=== PATIENT | male | born 1950 | race Caucasian/White ===

== ENCOUNTER 2021-07-26 07:18 | Day surgery (SDC) | payer OTHER ==
[~2021-07-26] VITALS: Ht 172.7 cm; Wt 72.6 kg
[~2021-07-26 07:18] MED LIST: ALBU2SYP10 GT; ALBUAER3 IN; ALPR0.254 PO; AML5T PO; AMLO-483 PO; ASPI-231 PO; AZEL0.1S; CHOLTAB14 PO; CYCL5TAB PO; DONE1TAB88 PO; DULO20CA PO; FAMO20TA10 PO; FENO200C PO; FER325T PO; FINA5TAB4 PO; FLUT1SPR5; HYDR-4072 PO; LEV50T PO; LINA145C PO; LOSA25TA38 PO; METF-372 PO; OMEP-263 PO; PREG150C PO; ROSU40TA PO; SILD100T57 PO; TAMS0.4C36 PO; UREA1CRE EX
[2021-07-26] MEDS ORDERED: CIPROFLOXACIN 400MG/200ML 200 ML IV ONE (08:41)
[2021-07-26] MEDS ORDERED: SUCCINYLCHOLINE CHLORIDE 20 MG/ML 10ML VIAL IV ONE (08:50)
[2021-07-26] MEDS ORDERED: ROCURONIUM 10MG/ML 10ML VIAL IV ONE (08:58)
[2021-07-26] MEDS ORDERED: fentaNYL CITRATE 100 MCG/2 ML VL ONE (08:58)
[2021-07-26] MEDS ORDERED: SODIUM CHLORIDE LOCK 10 ML ONE (08:58)
[2021-07-26] MEDS ORDERED: MIDAZOLAM HCL 2MG/2ML 2ml VIAL (1mg/ml) ONE (08:58)
[2021-07-26] MEDS ORDERED: PROPOFOL 10 MG/ML 20 ML IV ONE (08:58)
[2021-07-26] MEDS ORDERED: ONDANSETRON HCL 4 MG/2 ML VIAL ONE (08:58)
[2021-07-26] MEDS ORDERED: HYDROmorphone HCL 2 MG/ML VL IV PRN (09:00)
[2021-07-26] MEDS ORDERED: ACCU-CHEK COMFORT CURVE STRIP VI ONE (09:00)
[2021-07-26] MEDS ORDERED: METOCLOPRAMIDE HCL 5MG/ml INJ 2ml VIAL IV PRN (09:00)
[2021-07-26] MEDS ORDERED: MORPHINE SULFATE 4 MG/ML SYR/VIAL IV PRN (09:00)
[2021-07-26 10:30] VITALS: BP 127/71
== END 2021-07-26 10:45 | disposition home or self-care (01) ==
LOC: SUR 07:18
PROVIDERS: ATTEND Urology
DX: N32.0 Bladder-neck obstruction (principal); N30.80 Other cystitis without hematuria; I12.9 Hypertensive chronic kidney disease with stage 1 through stage 4 chronic kidney disease, or unspecified chronic kidney disease; E11.22 Type 2 diabetes mellitus with diabetic chronic kidney disease; N18.30 Chronic kidney disease, stage 3 unspecified; K21.9 Gastro-esophageal reflux disease without esophagitis; G89.29 Other chronic pain; E03.9 Hypothyroidism, unspecified; F43.10 Post-traumatic stress disorder, unspecified; E66.9 Obesity, unspecified; E11.42 Type 2 diabetes mellitus with diabetic polyneuropathy; J44.9 Chronic obstructive pulmonary disease, unspecified; F41.9 Anxiety disorder, unspecified; F32.9 Major depressive disorder, single episode, unspecified; Z68.31 Body mass index [BMI] 31.0-31.9, adult; Z98.890 Other specified postprocedural states; Z79.899 Other long term (current) drug therapy; Z20.822 Contact with and (suspected) exposure to COVID-19
CPT/HCPCS: 51715; 52640; 82962; 88305; J0330; J0744; J2250; J2405; J2704; J3010; Q4100; U0003

== ENCOUNTER 2024-11-30 06:19 | Inpatient (IN) | payer OTHER ==
[2024-11-30] VITALS (10 sets, daily range): BP systolic 122–138; BP diastolic 50–70; PULSE 83–100; RESP 8–20; TEMP 98–98.4; O2SAT 92–99
[~2024-11-30] VITALS: Ht 172.7 cm; Wt 72.2 kg
[~2024-11-30 06:19] MED LIST changes: -ALBU2SYP10 GT; +ALBU2SYP25 GT; -AMLO-483 PO; +AMLO1TAB21 PO; -ASPI-231 PO; +ASPI1TAB20 PO; +CYCL-837 PO; -CYCL5TAB PO; -FENO200C PO; +FENO200C25 PO; -LEV50T PO; +LEVO-848 PO; +LOSA-533 PO; -LOSA25TA38 PO; -OMEP-263 PO; +OMEP-448 PO; -ROSU40TA PO; +ROSU40TA81 PO; +SILD100T PO; -SILD100T57 PO; -TAMS0.4C36 PO; +TAMS0.4C39 PO
--- NOTE | 2024-11-30 06:33 | ED.PDOC ---
History of Present Illness HPI Comments 74-year-old male brought by paramedics because of shortness a breath. Shortness of breath started this morning. He also states that he has been having body pain. His blood pressure on arrival was 112/75 with a heart rate of 110. His saturation was 75-88% on room air. Placed on oxygen. He does have a history of COPD stents that was deployed in 2009 hypertension diabetes. Denies any other symptoms. Time Seen by MD: 06:28 Primary Care Provider: OK Reviewed Notes: Nurses Notes, Medications, Allergies Allergies: Coded Allergies: Benazepril (Verified Allergy, Severe, SEVERE COUGHING, 08/25/16) Doxycycline (Verified Allergy, Severe, EXCESSIVE COUGH, 08/25/16) [place] (Verified Allergy, Severe, TREMORS, 08/25/16) Quetiapine (Verified Allergy, Severe, AGITATION, 08/25/16) Zolpidem (Verified Allergy, Severe, SLEEP WALKING, 08/25/16) Home Meds Reported Medications Aspirin (Aspir-81) 81 Mg Tab, 81 MG PO, TAB 07/24/21 Albuterol Sulfate (VENTOLIN MDI) 90 Mcg Ih, 90 MCG IN PRN, INH 07/24/21 Albuterol Sulfate (Ventolin) 2 Mg/5 Ml Sr, 2 MG GT, SYP 07/24/21 Azelastine Hcl (Azelastine Hcl) 0.1 % Spr, 0.1 % NA, SPRAY 07/24/21 Fluticasone Propionate (Nasal) (Flonase Allergy Relief) 50 Mcg/Act Spr, 50 MCG NA PRN, SPRAY 07/24/21 Alprazolam (Alprazolam) 0.25 Mg Tab, 0.25 MG PO QHSP PRN for ANXIETY, TAB 07/24/21 Linaclotide Base (LINZESS) 145 Mcg Cap, 145 MCG PO PRN, CAP 07/24/21 Famotidine (PEPCID TABLET) 20 Mg Tb, 20 MG PO QHSP, TAB 07/24/21 Hydrocodone-Acetaminophen (Hydrocodone/Acetaminophen 10-325 mg) 1 Tab Tab, 1 TAB PO [id number], TAB 07/24/21 Urea (Urea 20 Intensive Hydrati) 20 % Cre, 20 % EX, CRE 07/24/21 Ferrous Sulfate (FERROUS SULFATE) 325 Mg Tb, 325 MG PO DAILY, TAB 07/24/21 Tamsulosin Hcl (Tamsulosin Hcl) 0.4 Mg Cap, 0.4 MG PO DAILY, CAP 07/24/21 Omeprazole (Omeprazole Dr) 40 Mg Cap, 40 MG PO BID, CAP 07/24/21 Losartan Potassium (Losartan Potassium) 25 Mg Tab, 25 MG PO DAILY, TAB 07/24/21 Amlodipine Besylate (Amlodipine Besylate) 2.5 Mg Tab, 2.5 MG PO DAILY, TAB 07/24/21 Metformin Hydrochloride (Metformin Hcl) 1,000 Mg Tab, 1000 MG PO BID, TAB 07/24/21 Rosuvastatin Calcium (Crestor) 40 Mg Tab, 40 MG PO DAILY, TAB 07/24/21 Fenofibrate (Fenofibrate Micronized) 200 Mg Cap, 200 MG PO DAILY, CAP 07/24/21 Pregabalin (Lyrica) 150 Mg Cap, 150 MG PO BID, CAP 07/24/21 Duloxetine Hcl (Cymbalta) 20 Mg Cap, 20 MG PO QAM, #3 CAP 07/24/21 Cholecalciferol (D-1000 EXTRA STRENGTH) 1,000 Unit Tab, 1000 UNIT PO, TAB 09/06/18 Sildenafil Citrate (Viagra) 100 Mg Tab, 1 TAB PO DAILYP, #6 TAB 11 Refills 09/06/18 Finasteride (Finasteride) 5 Mg Tab, 1 TAB PO DAILY, #30 TAB 11 Refills 09/06/18 Amlodipine Besylate (NORVASC TABLET) 5 Mg Tb, 1 TAB PO DAILY, #30 TAB 5 Refills 09/06/18 Levothyroxine Sodium (SYNTHROID TABLET) 50 Mcg Tb, 75 MCG PO DAILY 09/06/18 Cyclobenzaprine Hcl (Cyclobenzaprine Hcl) 5 Mg Tab, 2 TAB PO BIDPRN PRN for FOR MUSCLE SPASM, #30 TAB 09/06/18 Donepezil Hydrochloride (DONEPEZIL HCL) 10 Mg Tab, 1 TAB PO DAILY, #90 TAB 1 Refill 09/06/18 Information Source: Patient, Emergency Med Personnel Mode of Arrival: EMS Severity: Moderate Timing: Hours Duration: Since onset Past Medical History PAST MEDICAL HISTORY: Anxiety, COPD, Depression, DM, GERD, HTN Surgical History: PTCA Family History Family History: Unknown Social History Smoker: Non-Smoker Alcohol: Denies ETOH Use Drugs: Denies Drug Use Lives In: Home Constitutional: denies: chills, diaphoresis, fatigue, fever, malaise, sweats, weakness, others EENTM: denies: blurred vision, double vision, ear bleeding, ear discharge, ear drainage, ear pain, ear ringing, eye pain, eye redness, hearing loss, mouth pain, mouth swelling, nasal discharge, nose bleeding, nose congestion, nose pain, photophobia, tearing, throat pain, throat swelling, voice changes, others Respiratory: reports: shortness of breath; denies: cough, hemoptysis, orthopnea, SOB at rest, SOB with excertion, stridor, wheezing, others Cardiovascular: denies: chest pain, dizzy spells, diaphoresis, Dyspnea on exertion, edema, irregular heart beat, left arm pain, lightheadedness, palpitations, PND, syncope, others Gastrointestinal: denies: abdomen distended, abdominal pain, blood streaked bowels, constipated, diarrhea, dysphagia, difficulty swallowing, hematemesis, melena, nausea, poor appetite, poor fluid intake, rectal bleeding, rectal pain, vomiting, others Genitourinary: denies: burning, dysuria, flank pain, frequency, hematuria, incontinence, penile discharge, penile sore, pain, testicle pain, testicle swelling, urgency, others Neurological: denies: dizziness, fainting, headache, left sided numbness, left sided weakness, numbness, paresthesia, pre-existing deficit, right sided numb ness, right sided weakness, seizure, speech problems, tingling, tremors, weakness, others Musculoskeletal: denies: back pain, gout, joint pain, joint swelling, muscle pain, muscle stiffness, neck pain, others Integumetry: denies: bruises, change in color, change in hair/nails, dryness, laceration, lesions, lumps, rash, wounds, others Allergic/Immunocompromised: denies: Difficulty Healing, Frequent Infections, Hives, Itching, others Hematologic/Lymphatic: denies: anemia, blood clots, easy bleeding, easy bruising, swollen glands, others Endocrine: denies: excessive hunger, excessive sweating, excessive thirst, excessive urination, flushing, intolerance to cold, intolerance to heat, unexplained weight gain, unexplained weight loss, others Psychiatric: denies: anxiety, bipolar disorder, depression, hopeless, panic disorder, schizophrenia, sleepless, suicidal, others Physical Exam General Appearance: Moderate Distress HEENT: Normal ENT Inspection, Pharynx Normal, TMs Normal Neck: Full Range of Motion, Non-Tender, Normal, Normal Inspection Respiratory: Accessory Muscle Use, Respiratory Distress, Other (Coarse breath sounds) Cardiovascular: Tachycardia Breast Exam: Deferred Gastrointestinal: No Organomegaly, Non Tender, No Pulsatile Mass, Normal Bowel Sounds, Soft Genitalia: Deferred Pelvic: Deferred Rectal: Deferred Extremities: No calf tenderness, Normal capillary refill, Normal inspection, Normal range of motion, Non-tender, No pedal edema Musculoskeletal : Apperance: Normal Neurologic: Alert, clinic physician II-XII nml as Tested, No Motor Deficits, Normal Affect, Normal Mood, No Sensory Deficits Cerebellar Function: NOT DONE Reflexes: NOT DONE Skin: Dry, Normal Color, Warm Peripheral Pulses: 3+ Radial (R), 3+ Radial (L) Lymphatic: No Adenopathy Was a procedure done? Was a procedure done?: No Differential Dx Considerations may include: COPD Electrolyte imbalance X-Ray, Labs, Meds, VS Patient alert. Complaining of shortness a breath. Using accessory muscles. Blood pressure stable. Answering all questions. He does have risk factors for coronary artery disease. Placed on oxygen. Was given steroid. Was given breathing treatment. Possible pneumonia. COPD exacerbation. Reviewed his previous visit. Explained to the patient. Continue cardiac monitoring. EKG reviewed does not show any acute changes. Time of 1ST Reevaluation: 06:31 Reevaluation 1ST: Unchanged Patient Education/Counseling: Diagnosis, Treatment, Prognosis Family Education/Counseling: No Family Present Departure 1 Departure Time of Disposition: 06:32 Impression: Primary Impression: Acute respiratory failure Qualified Codes: J96.01 - Acute respiratory failure with hypoxia Additional Impression: COPD exacerbation Disposition: ADMITTED INPATIENT Admit to: Med Surg Condition: Guarded Critical Care Note Critical Care Time?: Yes (90 min-critical care time only) Stability Stability form required: No Heart Score Heart Score: Heart Score Response (Comments) Value History Slightly Suspicious 0 EKG Normal 0 Age >65 2 Risk Factors >3 or Hx ASHD 2 Troponin Normal limit 0 Total 4 TATUM KMIBALL MD Nov 30, 2024 06:33
[2024-11-30] MEDS: methylPREDNISolone SOD SUCC 125 MG/2 ML VL IV ONE (07:00)
--- NOTE | 2024-11-30 07:02 | DVH ---
CHEST RADIOGRAPH Indication: sob Technique: Single frontal view of the chest was obtained Comparison: None FINDINGS: Lines and Tubes: None Lungs: Multifocal left lung airspace opacities Pleura: No effusion. No pneumothorax. Cardiomediastinal contours: Unremarkable Bones: No acute osseous abnormality. IMPRESSION: left lung pneumonia
[2024-11-30 07:18] LABS: Chloride 101 mmol/L (98-107); Sodium 139 mmol/L (136-145)
[2024-11-30 07:19] LABS: Anion Gap 13 (5-15); Carbon Dioxide 25 mmol/L (20-31)
[2024-11-30 07:22] LABS: Calcium 10.8 mg/dL (8.7-10.4); Potassium 3.4 mmol/L (3.5-5.1)
[2024-11-30 07:24] LABS: Hematocrit 35.4 % (41.0-53.0); Hemoglobin 11.5 g/dL (13.5-17.5); Mean Corpuscular Hemoglobin 27.6 pg (28.0-32.0); Mean Corpuscular Hgb Conc. 32.5 g/dL (32.0-36.0); Mean Corpuscular Volume 85.1 fL (80.0-100.0); Platelet Count (auto) 313 10^3/uL (140-450); Red Blood Cells 4.16 10^6/uL (4.5-5.90); Red Cell Distribution Width 18.5 % (11.8-14.3); White Blood Cell 19.5 10^3/uL (4.4-10.8)
[2024-11-30 07:24] LABS: BUN/Creatinine Ratio 8.5 (10.0-20.0); Blood Urea Nitrogen 18 mg/dL (9-23)
[2024-11-30] MEDS: IPRATROPIUM BROM 0.5 MG/2.5ML INH SOL NEB ONE (07:27)
[2024-11-30] MEDS: ALBUTEROL SULF 2.5 MG/0.5ML(0.5%) NEB SOLN NEB ONE (07:27)
[2024-11-30 07:29] LABS: Band Neutrophils % (manual) 0; Basophils % (manual) 0 (0.0-2.0); Blast Cells 0; Metamyelocytes % 0; Myelocytes % 0; Promyelocytes % 0; Reactive Lymphocytes 0
[2024-11-30 07:36] LABS: Glucose 265 mg/dL (74-106)
[2024-11-30] MEDS ORDERED: DOCUSATE SOD 100 MG CAP PO PRN (07:45)
[2024-11-30] MEDS ORDERED: ONDANSETRON HCL 4 MG/2 ML VIAL IV PRN (07:45)
[2024-11-30] MEDS ORDERED: DEXTROSE (50%) 50ML SYRG IV PRN (07:45)
[2024-11-30] MEDS: cefTRIAXone 1GM/50ML D5W 50 ML IV SCH (09:00)
[2024-11-30] MEDS: cefTRIAXone 1GM/50ML D5W 50 ML IV ONE (09:00)
[2024-11-30] MEDS: AZITHROMYCIN 500MG/ 250ML 250 ML IV ONE (09:00)
[2024-11-30 09:15] LABS: Eosinophils % (manual) 1 (0-7); Large Platelets FEW; Lymphocytes % (manual) 8 (10.0-50.0); Monocytes % (manual) 5 (0-12); Platelet Estimate Adequa
--- NOTE | 2024-11-30 09:18 | DVHHP2 ---
History of Present Illness Reason for Visit: COPD with acute exacerbation History of Present Illness Patient is a 74-year-old male with multiple past medical history including COPD, DM, hypertension who presented to [facility] ED with complaint of shortness of breaths. Patient reports symptoms progressively get worse with weakness, shortness of breaths when ambulating, on exertion, SOB at rest, hypoxia with O2 saturation in the 70s, getting worse that prompted this visit. Patient was seen evaluated in the ED was placed on oxygen, laboratory data shows WBC 19.5, hemoglobin 11.5, hematocrit 35.4, platelets 313, sodium 139, potassium 3.4, BUN 18, creatinine 2.12, GFR 32 glucose 285, calcium 10.8, troponin 5, blood pressure 113/53, heart rate 100, temperature 98.4 F, O2 saturation 95% on non-rebreather. Chest x-ray revealing left lung pneumonia. Patient was started on IV antibiotic regimen azithromycin, please see medication orders section in the computer. On my assessment, patient denied chest pain, no headache, no dizziness, no diaphoresis, currently on oxygen no diarrhea, no nausea, no vomiting, no fever, no chills. Patient was admitted for evaluation and medical management. Past Medical History Anxiety, COPD, Depression, DM, GERD, HTN, HLD Past Surgical History PTCA Family History Reviewed, noncontributory to the management of this case. Past Social History The patient lives at home, denies smoking, alcohol or illicit drugs abuse. Review of Systems Constitutional: Yes: Weakness; No: Fever, Chills, Sweats, Malaise, Other Eyes: No: Pain, Vision change, Conjunctivae inflammation, Eyelid inflammation, Other, Redness ENT: No: Ear pain, Ear discharge, Nose pain, Nose discharge, Nose congestion, Mouth pain, Mouth swelling, Throat pain, Throat swelling, Other Respiratory: Shortness of breath, SOB with excertion, Other (SOB at rest); No: Cough, Dry, Wheezing, Hemoptysis, Pleuritic Pain, Sputum, Wheezing Cardiovascular: No: Chest Pain, Palpitations, Orthopnea, Paroxysmal Noc. Dyspnea, Edema, Lt Headedness, Other Gastrointestinal: No: Nausea, Vomiting, Abdominal Pain, Diarrhea, Constipation, Melena, Hematochezia, Other Genitourinary: No Dysuria, No Frequency, No Incontinence, No Hematuria, No Retention, No Other Musculoskeletal: No: other, neck pain, shoulder pain, arm pain, back pain, hand pain, leg pain, foot pain Skin: No: Rash, Lesions, Jaundice, Bruising, Other Neurological: No: Weakness, Numbness, Incoordination, Change in speech, Confusion, Seizures, Other Allergies: Coded Allergies: Benazepril (Verified Allergy, Severe, SEVERE COUGHING, 08/25/16) Doxycycline (Verified Allergy, Severe, EXCESSIVE COUGH, 08/25/16) [place] (Verified Allergy, Severe, TREMORS, 08/25/16) Quetiapine (Verified Allergy, Severe, AGITATION, 08/25/16) Zolpidem (Verified Allergy, Severe, SLEEP WALKING, 08/25/16) Medications Current Medications Medications Dose Ordered Sig/Al Route Start Time Stop Time Status Last Admin Dose Admin Aspirin 81 mg DAILY PO 11/30/24 10:00 Atorvastatin Calcium 20 mg HS PO 11/30/24 22:00 Methylprednisolone Sodium Succinate 40 mg Q8HR IV 11/30/24 14:00 Albuterol 2.5 mg Q4HPRN PRN NEB 11/30/24 07:45 Ipratropium [place] 0.5 mg Q4HPRN PRN NEB 11/30/24 07:45 Ceftriaxone Sodium 50 ml @ 100 mls/hr DAILY@09 IV 11/30/24 09:00 Azithromycin 250 ml @ 125 mls/hr DAILY IV 11/30/24 10:00 Future Hold Alprazolam 0.25 mg Q12HP PRN PO 11/30/24 07:45 Diagnostic Test (Pha) 1 strip ACHS 11/30/24 11:30 Insulin Human Regular HS SC 11/30/24 22:00 Insulin Human Regular AC SC 11/30/24 11:30 Dextrose 50 ml UD PRN IV 11/30/24 07:45 Sodium Chloride 10 ml Q8HR IV 11/30/24 14:00 Acetaminophen/ Hydrocodone Bitart 1 tab Q4HP PRN PO 11/30/24 07:45 Ondansetron HCl 4 mg Q4HP PRN IV 11/30/24 07:45 Hold Docusate Sodium 100 mg BIDPRN PRN PO 11/30/24 07:45 Acetaminophen 650 mg Q6HP PRN PO 11/30/24 07:45 Famotidine 20 mg DAILY IV 11/30/24 10:00 Exam Vital Signs Vital Signs Date Time Temp Pulse Resp B/P (MAP) Pulse Ox O2 Delivery O2 Flow Rate FiO2 11/30/24 08:00 90 11/30/24 07:27 20 Non-Rebreather 15 N/A 11/30/24 07:25 98 11/30/24 06:54 98.4 113/53 (73) 98.4 General Appearance: Alert, Oriented X3, Cooperative, No acute distress HEENT: Atraumatic, PERRLA, EOMI, Mucous membr. moist/pink Respiratory: Normal air movement, Other (Diminished breath sounds) Cardiovascular: Regular rate, Normal S1, Normal S2, No murmurs Abdominal: Normal bowel sounds, Soft, No tenderness, No hepatospenomegaly, No masses Extremities: No clubbing, No cyanosis, No edema, Normal pulses, No tenderness/swelling Skin: No rashes, No breakdown, No significant lesion Neuro: Normal speech, Normal tone, Sensation intact, Cranial nerves 3-12 NL, Reflexes 2+, Other (Generalized weakness) Psych/Mental Status: Mental status NL, Mood NL Labs/Xrays Labs Test 11/30/24 06:46 11/30/24 06:34 Range/Units White Blood Count 19.5 H 4.4-10.8 10^3/uL Red Blood Count 4.16 L 4.5-5.90 10^6/uL Hemoglobin 11.5 L 13.5-17.5 g/dL Hematocrit 35.4 L 41.0-53.0 % Mean Corpuscular Volume 85.1 80.0-100.0 fL Mean Corpuscular Hemoglobin 27.6 L 28.0-32.0 pg Mean Corpuscular Hemoglobin Concent 32.5 32.0-36.0 g/dL Red Cell Distribution Width 18.5 H 11.8-14.3 % Platelet Count 313 140-450 10^3/uL Mean Platelet Volume 8.6 6.9-10.8 fL Neutrophils (%) (Auto) 37.0-80.0 % Lymphocytes (%) (Auto) 10.0-50.0 % Monocytes (%) (Auto) 0.0-12.0 % Basophils (%) (Auto) 0.0-2.0 % Neutrophils # (Auto) 1.6-8.6 10 ^3/uL Lymphocytes # (Auto) 0.4-5.4 10 ^3/uL Monocytes # (Auto) 0-1.3 10 ^3/uL Differential Total Cells Counted 100.0 100 Neutrophils % (Manual) 86 H 37.0-80.0 Band Neutrophils % (Manual) 0 Lymphocytes % (Manual) 8 L 10.0-50.0 Monocytes % (Manual) 5 0-12 Eosinophils % (Manual) 1 0-7 Basophils % (Manual) 0 0.0-2.0 Metamyelocytes % (manual) 0 Myelocytes % (Manual) 0 Promyelocytes % (Manual) 0 Blast Cells % (Manual) 0 Reactive Lymphocytes 0 Platelet Estimate [place] Large Platelets Few Troponin I High Sensitivity 5 </=54 ng/L Sodium Level 139 136-145 mmol/L Potassium Level 3.4 L 3.5-5.1 mmol/L Chloride Level 101 98-107 mmol/L Carbon Dioxide Level 25 20-31 mmol/L Anion Gap 13 5-15 Blood Urea Nitrogen 18 9-23 mg/dL Creatinine 2.12 H 0.700-1.30 mg/dL Glomerular Filtration Rate Calc 32 >90 mL/min BUN/Creatinine Ratio 8.5 L 10.0-20.0 Serum Glucose 265 H 74-106 mg/dL Calcium Level 10.8 H 8.7-10.4 mg/dL PATIENT: OLIVIA REDMOND ACCT: [id number] UNIT: [id number] : 1950 LOC: ER ROOM / BED: / AGE / SEX: 74 / M ADM STATUS: REG ER SERVICE [id number] ORDERING PHYSICIAN: TATUM KIMBALL MD PROCEDURE(s): CXRP - CHEST PORTABLE REASON: sob ORDER NUMBER(s): [id number], ACCESSION NUMBER(s): [id number] CHEST RADIOGRAPH Indication: sob Technique: Single frontal view of the chest was obtained Comparison: None FINDINGS: Lines and Tubes: None Lungs: Multifocal left lung airspace opacities Pleura: No effusion. No pneumothorax. Cardiomediastinal contours: Unremarkable Bones: No acute osseous abnormality. IMPRESSION: left lung pneumonia Assessment/Plan Assessment/Plan Acute respiratory failure Acute respiratory failure with hypoxia Leukocytosis, unspecified Generalized weakness Acute on chronic renal failure COPD with acute exacerbation Pneumonia, unspecified organism Plan 1. Admit to telemetry unit 2. Breathing treatment 3. Pain control management 4. IV antibiotic management 5. Management of fluids and electrolytes 6. Consultation for pulmonology 7. Diagnostic test chest x-ray 8. DVT prophylaxis-on aspirin 9. Repeat labs CBC, CMP in a.m. 10. Home medication reviewed and reconciled 11. Continue with current medical management 12. Treatment plan discussed with patient and RN. Patient verbalized un derstanding. Plan discussed with: Patient, Other (RN) My Orders Orders - MERCEDES MILLER DNP Procedure Category Date Status Time Aspirin Tablet PHA 11/30/24 In Process 10:00 Atorvastatin (Lipitor) PHA 11/30/24 In Process 22:00 Methylprednisolone PHA 11/30/24 In Process Sod Succ (Solu Medrol 14:00 Albuterol Medneb PHA 11/30/24 In Process (Ventolin Medneb) 07:45 Ipratropium Medneb PHA 11/30/24 In Process (Atrovent Medneb) 07:45 *Consult CONS 11/30/24 Transmitted / 07:38 Ceftriaxone 1gm/50ml PHA 11/30/24 In Process D5w (Rocephin) 09:00 Azithromycin 500mg/ PHA 11/30/24 In Process 250ml (Zithromax 50 10:00 Azithromycin 500mg/ PHA 11/30/24 In Process 250ml (Zithromax 50 07:45 Alprazolam Tablet PHA 11/30/24 In Process (Xanax Tablet) 07:45 Consistent DIET 11/30/24 Transmitted Carb(Ccho)Diabetes Breakfast Glucose Blood PHA 11/30/24 In Process (Accu-Chek Comfort 11:30 Insulin R (Human) PHA 11/30/24 In Process (Insulin R) 22:00 Insulin R (Human) PHA 11/30/24 In Process (Insulin R) 11:30 Dextrose 50% Syringe PHA 11/30/24 In Process 07:45 Allergies DENITA 11/30/24 In Process 07:38 Code Status CODE 11/30/24 Transmitted 07:38 Sodium Chloride Lock PHA 11/30/24 In Process (Saline Lock Ns) 14:00 Oxygen Per Hour RT 11/30/24 Transmitted 07:38 Hydrocodone-Acet PHA 11/30/24 In Process 5/325mg Tab ([place] 07:45 Ondansetron Hcl PHA 11/30/24 In Process (Zofran) 07:45 Docusate Sodium PHA 11/30/24 In Process Capsule (Colace 07:45 Complete Blood Count LAB 12/01/24 Verified 04:00 Comprehensive LAB 12/01/24 Verified Metabolic Panel 04:00 Condition: Serious DENITA 11/30/24 In Process 07:38 Acetaminophen Tablet PHA 11/30/24 In Process (Tylenol Tablet) 07:45 Bedrest With Bathroom DENITA 11/30/24 In Process Privileg 07:38 Sequential DENITA 11/30/24 In Process Compression Device Famotidine Injection PHA 11/30/24 In Process (Pepcid Injection) 10:00 Problem List: (1) Acute respiratory failure (2) Acute respiratory failure with hypoxia (3) Leukocytosis, unspecified (4) Pneumonia, unspecified organism (5) Generalized weakness (6) COPD with acute exacerbation (7) Acute on chronic renal failure Date of Service: Nov 30, 2024 Billing Provider: MERCEDES MILLER DNP Common Visit Codes: 12599-KALRIPM INP/OBS CARE (HIGH) MERCEDES MILLER DNP Nov 30, 2024 09:18
[2024-11-30] MEDS ORDERED: NITROGLYCERIN 0.4 MG SL TAB SL PRN (09:30)
[2024-11-30] MEDS ORDERED: MORPHINE SULFATE INJ 2 MG/ml SYRG IV PRN (09:30)
[2024-11-30] MEDS ORDERED: POTASSIUM CHL 20MEQ/100ML 100 ML IV ONE (09:30)
[2024-11-30] MEDS: AZITHROMYCIN 500MG/ 250ML 250 ML IV SCH (10:00)
[2024-11-30] MEDS ORDERED: FAMOTIDINE (10MG/ML) 2ML VL IV SCH (10:00)
[2024-11-30] MEDS: FAMOTIDINE (10MG/ML) 2ML VL IV SCH (11:07)
[2024-11-30] MEDS: ASPirin 81 mg TAB PO SCH (11:08)
[2024-11-30] MEDS: POTASSIUM CHL 20 Meq TABLET PO ONE (11:08)
[2024-11-30] MEDS: InsuLIN REG 1unit/0.01ml Soln (100units/ml) SC SCH ×2 (11:39→23:08)
[2024-11-30] MEDS: ACCU-CHEK COMFORT CURVE STRIP VI SCH (11:41)
--- NOTE | 2024-11-30 12:43 | DVHINCON2 ---
Date of service: Nov 30, 2024 Referring Physician Raad Jamison, nurse practitioner Reason for Consultation Acute kidney injury History of Present Illness Patient is 74-year-old male with past medical history significant for Anxiety, COPD, Depression, DM, Chronic Kidney Disease stage [address] Robertson, GERD, and HTN is admitted for shortness of breath and hypoxemia. On admission patient found to have elevated creatinine nephrology is consulted for acute kidney injury Past Medical History PAST MEDICAL HISTORY: Anxiety, COPD, Depression, DM, GERD, HTN Past Surgical History Surgical History: PTCA Allergies: Coded Allergies: Benazepril (Verified Allergy, Severe, SEVERE COUGHING, 08/25/16) Doxycycline (Verified Allergy, Severe, EXCESSIVE COUGH, 08/25/16) [place] (Verified Allergy, Severe, TREMORS, 08/25/16) Quetiapine (Verified Allergy, Severe, AGITATION, 08/25/16) Zolpidem (Verified Allergy, Severe, SLEEP WALKING, 08/25/16) Home Meds Reported Medications Aspirin (Aspir-81) 81 Mg Tab, 81 MG PO, TAB 07/24/21 Albuterol Sulfate (VENTOLIN MDI) 90 Mcg Ih, 90 MCG IN PRN, INH 07/24/21 Albuterol Sulfate (Ventolin) 2 Mg/5 Ml Sr, 2 MG GT, SYP 07/24/21 Azelastine Hcl (Azelastine Hcl) 0.1 % Spr, 0.1 % NA, SPRAY 07/24/21 Fluticasone Propionate (Nasal) (Flonase Allergy Relief) 50 Mcg/Act Spr, 50 MCG NA PRN, SPRAY 07/24/21 Alprazolam (Alprazolam) 0.25 Mg Tab, 0.25 MG PO QHSP PRN for ANXIETY, TAB 07/24/21 Linaclotide Base (LINZESS) 145 Mcg Cap, 145 MCG PO PRN, CAP 07/24/21 Famotidine (PEPCID TABLET) 20 Mg Tb, 20 MG PO QHSP, TAB 07/24/21 Hydrocodone-Acetaminophen (Hydrocodone/Acetaminophen 10-325 mg) 1 Tab Tab, 1 TAB PO [id number], TAB 07/24/21 Urea (Urea 20 Intensive Hydrati) 20 % Cre, 20 % EX, CRE 07/24/21 Ferrous Sulfate (FERROUS SULFATE) 325 Mg Tb, 325 MG PO DAILY, TAB 07/24/21 Tamsulosin Hcl (Tamsulosin Hcl) 0.4 Mg Cap, 0.4 MG PO DAILY, CAP 07/24/21 Omeprazole (Omeprazole Dr) 40 Mg Cap, 40 MG PO BID, CAP 07/24/21 Losartan Potassium (Losartan Potassium) 25 Mg Tab, 25 MG PO DAILY, TAB 07/24/21 Amlodipine Besylate (Amlodipine Besylate) 2.5 Mg Tab, 2.5 MG PO DAILY, TAB 07/24/21 Metformin Hydrochloride (Metformin Hcl) 1,000 Mg Tab, 1000 MG PO BID, TAB 07/24/21 Rosuvastatin Calcium (Crestor) 40 Mg Tab, 40 MG PO DAILY, TAB 07/24/21 Fenofibrate (Fenofibrate Micronized) 200 Mg Cap, 200 MG PO DAILY, CAP 07/24/21 Pregabalin (Lyrica) 150 Mg Cap, 150 MG PO BID, CAP 07/24/21 Duloxetine Hcl (Cymbalta) 20 Mg Cap, 20 MG PO QAM, #3 CAP 07/24/21 Cholecalciferol (D-1000 EXTRA STRENGTH) 1,000 Unit Tab, 1000 UNIT PO, TAB 09/06/18 Sildenafil Citrate (Viagra) 100 Mg Tab, 1 TAB PO DAILYP, #6 TAB 11 Refills 09/06/18 Finasteride (Finasteride) 5 Mg Tab, 1 TAB PO DAILY, #30 TAB 11 Refills 09/06/18 Amlodipine Besylate (NORVASC TABLET) 5 Mg Tb, 1 TAB PO DAILY, #30 TAB 5 Refills 09/06/18 Levothyroxine Sodium (SYNTHROID TABLET) 50 Mcg Tb, 75 MCG PO DAILY 09/06/18 Cyclobenzaprine Hcl (Cyclobenzaprine Hcl) 5 Mg Tab, 2 TAB PO BIDPRN PRN for FOR MUSCLE SPASM, #30 TAB 09/06/18 Donepezil Hydrochloride (DONEPEZIL HCL) 10 Mg Tab, 1 TAB PO DAILY, #90 TAB 1 Refill 09/06/18 Current Medications Current Medications Medications (Trade) Dose Ordered Sig/Al Route PRN Reason Start Time Stop Time Status Last Admin Aspirin 81 mg DAILY PO 11/30/24 10:00 11/30/24 11:08 Atorvastatin Calcium (Lipitor) 20 mg HS PO 11/30/24 22:00 Methylprednisolone Sodium Succinate (Solu Medrol) 40 mg Q8HR IV 11/30/24 14:00 Famotidine (Pepcid Injection) 20 mg Q12HR IV 11/30/24 10:00 11/30/24 08:11 DC Albuterol (Ventolin Medneb) 2.5 mg Q4HPRN PRN NEB SHORTNESS OF BREATH 11/30/24 07:45 Ipratropium [place] (Atrovent Medneb) 0.5 mg Q4HPRN PRN NEB SHORTNESS OF BREATH 11/30/24 07:45 Ceftriaxone Sodium 50 ml @ 100 mls/hr DAILY@09 IV 11/30/24 09:00 11/30/24 09:00 Azithromycin 250 ml @ 125 mls/hr DAILY IV 11/30/24 10:00 11/30/24 12:20 Alprazolam (Xanax Tablet) 0.25 mg Q12HP PRN PO ANXIETY 11/30/24 07:45 Diagnostic Test (Pha) (Accu-Chek Comfort Curve T) 1 strip ACHS 11/30/24 11:30 11/30/24 11:41 Insulin Human Regular (InsuLIN R) HS SC 11/30/24 22:00 Insulin Human Regular (InsuLIN R) AC SC 11/30/24 11:30 11/30/24 11:39 Dextrose 50 ml UD PRN IV Blood Sugar LESS THAN 60 11/30/24 07:45 Sodium Chloride (Saline Lock Ns) 10 ml Q8HR IV 11/30/24 14:00 Acetaminophen/ Hydrocodone Bitart ([place] 5/325MG Tab) 1 tab Q4HP PRN PO MODERATE PAIN (4-6 PAIN SCALE) 11/30/24 07:45 Ondansetron HCl (Zofran) 4 mg Q4HP PRN IV NAUSEA / VOMITING 11/30/24 07:45 Hold Docusate Sodium (Colace Capsule) 100 mg BIDPRN PRN PO FOR CONSTIPATION 11/30/24 07:45 Acetaminophen (Tylenol Tablet) 650 mg Q6HP PRN PO PAIN SCALE 1-3 OR TEMP>100.4 11/30/24 07:45 Famotidine (Pepcid Injection) 20 mg DAILY IV 11/30/24 10:00 11/30/24 11:07 Nitroglycerin (Ntrostat Sublingual) 0.4 mg Q5MINP PRN SL FOR CHEST PAIN 11/30/24 09:30 Morphine Sulfate 2 mg Q30M PRN IV FOR CHEST PAIN 11/30/24 09:30 Review of Systems Can not be obtained due to critical condition H&P Exam Vital Signs/I&O Vital Sign Date Time Temp Pulse Resp B/P (MAP) Pulse Ox O2 Delivery O2 Flow Rate FiO2 11/30/24 11:03 98.4 90 20 122/50 95 10.0 98.4 11/30/24 07:27 Non-Rebreather N/A Physical Exam Patient is awake alert, at the bedside O2 high flow Lungs bibasilar crackles Cardiac exam tachycardia GI soft nontender was normal Extremity 1+ edema Neuro nonfocal Labs/Diagnostic Data Labs/Diagnostic Data Laboratory Tests Test 11/30/24 11:29 11/30/24 06:46 11/30/24 06:34 Range/Units POC Glucose 338 H 70-106 mg/dl White Blood Count 19.5 H 4.4-10.8 10^3/uL Red Blood Count 4.16 L 4.5-5.90 10^6/uL Hemoglobin 11.5 L 13.5-17.5 g/dL Hematocrit 35.4 L 41.0-53.0 % Mean Corpuscular Volume 85.1 80.0-100.0 fL Mean Corpuscular Hemoglobin 27.6 L 28.0-32.0 pg Mean Corpuscular Hemoglobin Concent 32.5 32.0-36.0 g/dL Red Cell Distribution Width 18.5 H 11.8-14.3 % Platelet Count 313 140-450 10^3/uL Mean Platelet Volume 8.6 6.9-10.8 fL Neutrophils (%) (Auto) 37.0-80.0 % Lymphocytes (%) (Auto) 10.0-50.0 % Monocytes (%) (Auto) 0.0-12.0 % Basophils (%) (Auto) 0.0-2.0 % Neutrophils # (Auto) 1.6-8.6 10 ^3/uL Lymphocytes # (Auto) 0.4-5.4 10 ^3/uL Monocytes # (Auto) 0-1.3 10 ^3/uL Differential Total Cells Counted 100.0 100 Neutrophils % (Manual) 86 H 37.0-80.0 Band Neutrophils % (Manual) 0 Lymphocytes % (Manual) 8 L 10.0-50.0 Monocytes % (Manual) 5 0-12 Eosinophils % (Manual) 1 0-7 Basophils % (Manual) 0 0.0-2.0 Metamyelocytes % (manual) 0 Myelocytes % (Manual) 0 Promyelocytes % (Manual) 0 Blast Cells % (Manual) 0 Reactive Lymphocytes 0 Platelet Estimate [place] Large Platelets Few Troponin I High Sensitivity 5 </=54 ng/L Sodium Level 139 136-145 mmol/L Potassium Level 3.4 L 3.5-5.1 mmol/L Chloride Level 101 98-107 mmol/L Carbon Dioxide Level 25 20-31 mmol/L Anion Gap 13 5-15 Blood Urea Nitrogen 18 9-23 mg/dL Creatinine 2.12 H 0.700-1.30 mg/dL Glomerular Filtration Rate Calc 32 >90 mL/min BUN/Creatinine Ratio 8.5 L 10.0-20.0 Serum Glucose 265 H 74-106 mg/dL Calcium Level 10.8 H 8.7-10.4 mg/dL Assessment Acute kidney injury superimposed Chronic Kidney Disease secondary hemodynamic mediated Chronic kidney disease stage [address] Robertson Acute hypoxic respiratory failure Left lower lobe pneumonia Hyperglycemia Anemia of chronic kidney disease Recommendations Closely monitor fluid and electrolytes Avoid nephrotoxic medications Mabry catheter Strict I&Os Check urine electrolytes Check A1c And urine protein excretion Check kidney ultrasound IV antibiotics Pulmonary consult Insulin sliding scale We will continue to follow Patient seen and examined by myself ER 8. I discussed my plan of care with the patient, his and the primary nurse at the bedside I would like to thank Raad for the consult, will follow up Plan discussed with: Patient, Spouse DOUG WOLFE MD Nov 30, 2024 12:43
--- NOTE | 2024-11-30 13:07 | ECG ---
[facility] Test Date: 2024-11-30 Test Time: 06:26:26 Pat Name: OLIVIA REDMOND Department: ER Room: [address] [place] [address] A Gender: M Vp Cardiovascular Service Line: : 1950 Requested By: TATUM KIMBALL Order Number: [id number] Reading MD: Eric Mccray Measurements Intervals [place] Rate: 106 P: 33 NE: 150 QRS: 60 QRSD: 152 T: 1 QT: 356 QTc: 473 Interpretive Statements Sinus tachycardia Right bundle branch block Abnormal inferior Q waves ST depr, consider ischemia, inferior leads Electronically Signed On 11-30-2024 17:55:56 PST by Eric Mccray Please click the below link to view image of tracing.
--- NOTE | 2024-11-30 13:29 | DVH ---
INDICATION: mckenna TECHNIQUE: Multiple real-time sonographic images of the kidneys and bladder were obtained. COMPARISON: None FINDINGS: RIGHT kidney measures 11.7 cm in length. No hydronephrosis. Nonobstructing right renal stone measures 0.7 cm. LEFT kidney measures 11.6 cm in length. Left upper pole cyst measures 0.8 cm. No hydronephrosis. No large intraluminal masses are seen in the bladder. IMPRESSION: No hydronephrosis. Nonobstructing stone in the right mid kidney measures 0.7 cm.
[2024-11-30] MEDS: methylPREDNISolone SOD SUCC 40 MG/ML VL IV SCH (14:00)
[2024-11-30] MEDS: SODIUM CHLOR 0.9% PF (SALINE LOCK) 10ML VIAL/SYR IV SCH (14:06)
[2024-11-30 14:55] LABS: Urine Bacteria None Seen /hpf (None Seen)
[2024-11-30 15:15] LABS: Protein, Urine 23.8 mg/dL (1-14)
[2024-11-30 15:18] LABS: Creatinine, Urine 151.6 mg/dL (30.0-125.0); Urine Protein/Creatinine Ratio 0.16
[2024-11-30 15:26] LABS: Urine Blood Negative /uL (Negative); Urine Clarity Clear (Clear); Urine Color Yellow (Yellow); Urine Hyaline Cast FEW /lpf (0 - 2); Urine Protein, UAD TRACE (Negative); Urine Specific Gravity 1.021 (1.001-1.035); Urine Squamous Epithelial Cell None Seen /hpf (<5); Urine Urobilinogen Normal (Negative); Urine WBC 2 /hpf (0 - 3)
--- NOTE | 2024-11-30 18:28 | DVHINCON2 ---
Date of service: Nov 30, 2024 Referring Physician Raad Jamison NP Reason for Consultation Acute hypoxic respiratory failure, COPD exacerbation and pneumonia History of Present Illness A 74-year-old man with PMHx of COPD, DM, GERD, hypertension, hyperlipidemia, depression and anxiety who presents to ED today c/o shortness of breath. Of note, patient is known to me from office. He reports symptoms progressively worsened with weakness, SOB with exertion and at rest, hypoxia with O2 saturation in the 70s, which prompted this visit. In the ED pt was placed on supplemental oxygen. Workup noted WBC 19.5, hemoglobin 11.5, hematocrit 35.4, platelets 313, sodium 139, potassium 3.4, BUN 18, creatinine 2.12, GFR 32, glucose 285, calcium 10.8, troponin 5. O2 saturation was 95% on non-rebreather. Chest x-ray revealing left lung pneumonia. Patient was admitted for further care and pulmonary consultation is requested for evaluation and management of acute hypoxic respiratory failure, COPD exacerbation and pneumonia. Review of Systems: 14-point review of systems negative unless otherwise noted above. Past Medical History: COPD, DM, GERD, hypertension, hyperlipidemia, depression and anxiety Past Surgical History: PTCA Medications: Reviewed. Allergies: Benazepril Doxycycline [place] Quetiapine Zolpidem Family History: No family history of premature CAD. No family history of lung disorders. Social History: Nonsmoker. No alcohol or illicit drug use. Allergies: Coded Allergies: Benazepril (Verified Allergy, Severe, SEVERE COUGHING, 08/25/16) Doxycycline (Verified Allergy, Severe, EXCESSIVE COUGH, 08/25/16) [place] (Verified Allergy, Severe, TREMORS, 08/25/16) Quetiapine (Verified Allergy, Severe, AGITATION, 08/25/16) Zolpidem (Verified Allergy, Severe, SLEEP WALKING, 08/25/16) Home Meds Reported Medications Aspirin (Aspir-81) 81 Mg Tab, 81 MG PO, TAB 07/24/21 Albuterol Sulfate (VENTOLIN MDI) 90 Mcg Ih, 90 MCG IN PRN, INH 07/24/21 Albuterol Sulfate (Ventolin) 2 Mg/5 Ml Sr, 2 MG GT, SYP 07/24/21 Azelastine Hcl (Azelastine Hcl) 0.1 % Spr, 0.1 % NA, SPRAY 07/24/21 Fluticasone Propionate (Nasal) (Flonase Allergy Relief) 50 Mcg/Act Spr, 50 MCG NA PRN, SPRAY 07/24/21 Alprazolam (Alprazolam) 0.25 Mg Tab, 0.25 MG PO QHSP PRN for ANXIETY, TAB 07/24/21 Linaclotide Base (LINZESS) 145 Mcg Cap, 145 MCG PO PRN, CAP 07/24/21 Famotidine (PEPCID TABLET) 20 Mg Tb, 20 MG PO QHSP, TAB 07/24/21 Hydrocodone-Acetaminophen (Hydrocodone/Acetaminophen 10-325 mg) 1 Tab Tab, 1 TAB PO [id number], TAB 07/24/21 Urea (Urea 20 Intensive Hydrati) 20 % Cre, 20 % EX, CRE 07/24/21 Ferrous Sulfate (FERROUS SULFATE) 325 Mg Tb, 325 MG PO DAILY, TAB 07/24/21 Tamsulosin Hcl (Tamsulosin Hcl) 0.4 Mg Cap, 0.4 MG PO DAILY, CAP 07/24/21 Omeprazole (Omeprazole Dr) 40 Mg Cap, 40 MG PO BID, CAP 07/24/21 Losartan Potassium (Losartan Potassium) 25 Mg Tab, 25 MG PO DAILY, TAB 07/24/21 Amlodipine Besylate (Amlodipine Besylate) 2.5 Mg Tab, 2.5 MG PO DAILY, TAB 07/24/21 Metformin Hydrochloride (Metformin Hcl) 1,000 Mg Tab, 1000 MG PO BID, TAB 07/24/21 Rosuvastatin Calcium (Crestor) 40 Mg Tab, 40 MG PO DAILY, TAB 07/24/21 Fenofibrate (Fenofibrate Micronized) 200 Mg Cap, 200 MG PO DAILY, CAP 07/24/21 Pregabalin (Lyrica) 150 Mg Cap, 150 MG PO BID, CAP 07/24/21 Duloxetine Hcl (Cymbalta) 20 Mg Cap, 20 MG PO QAM, #3 CAP 07/24/21 Cholecalciferol (D-1000 EXTRA STRENGTH) 1,000 Unit Tab, 1000 UNIT PO, TAB 09/06/18 Sildenafil Citrate (Viagra) 100 Mg Tab, 1 TAB PO DAILYP, #6 TAB 11 Refills 09/06/18 Finasteride (Finasteride) 5 Mg Tab, 1 TAB PO DAILY, #30 TAB 11 Refills 09/06/18 Amlodipine Besylate (NORVASC TABLET) 5 Mg Tb, 1 TAB PO DAILY, #30 TAB 5 Refills 09/06/18 Levothyroxine Sodium (SYNTHROID TABLET) 50 Mcg Tb, 75 MCG PO DAILY 09/06/18 Cyclobenzaprine Hcl (Cyclobenzaprine Hcl) 5 Mg Tab, 2 TAB PO BIDPRN PRN for FOR MUSCLE SPASM, #30 TAB 09/06/18 Donepezil Hydrochloride (DONEPEZIL HCL) 10 Mg Tab, 1 TAB PO DAILY, #90 TAB 1 Refill 09/06/18 Current Medications Current Medications Medications (Trade) Dose Ordered Sig/Al Route PRN Reason Start Time Stop Time Status Last Admin Aspirin 81 mg DAILY PO 11/30/24 10:00 11/30/24 11:08 Atorvastatin Calcium (Lipitor) 20 mg HS PO 11/30/24 22:00 Methylprednisolone Sodium Succinate (Solu Medrol) 40 mg Q8HR IV 11/30/24 14:00 11/30/24 14:00 Famotidine (Pepcid Injection) 20 mg Q12HR IV 11/30/24 10:00 11/30/24 08:11 DC Albuterol (Ventolin Medneb) 2.5 mg Q4HPRN PRN NEB SHORTNESS OF BREATH 11/30/24 07:45 Ipratropium [place] (Atrovent Medneb) 0.5 mg Q4HPRN PRN NEB SHORTNESS OF BREATH 11/30/24 07:45 Ceftriaxone Sodium 50 ml @ 100 mls/hr DAILY@09 IV 11/30/24 09:00 11/30/24 09:00 Azithromycin 250 ml @ 125 mls/hr DAILY IV 11/30/24 10:00 11/30/24 12:20 Alprazolam (Xanax Tablet) 0.25 mg Q12HP PRN PO ANXIETY 11/30/24 07:45 Diagnostic Test (Pha) (Accu-Chek Comfort Curve T) 1 strip ACHS 11/30/24 11:30 11/30/24 17:00 Insulin Human Regular (InsuLIN R) HS SC 11/30/24 22:00 Insulin Human Regular (InsuLIN R) AC SC 11/30/24 11:30 11/30/24 17:00 Dextrose 50 ml UD PRN IV Blood Sugar LESS THAN 60 11/30/24 07:45 Sodium Chloride (Saline Lock Ns) 10 ml Q8HR IV 11/30/24 14:00 11/30/24 14:06 Acetaminophen/ Hydrocodone Bitart ([place] 5/325MG Tab) 1 tab Q4HP PRN PO MODERATE PAIN (4-6 PAIN SCALE) 11/30/24 07:45 Ondansetron HCl (Zofran) 4 mg Q4HP PRN IV NAUSEA / VOMITING 11/30/24 07:45 Hold Docusate Sodium (Colace Capsule) 100 mg BIDPRN PRN PO FOR CONSTIPATION 11/30/24 07:45 Acetaminophen (Tylenol Tablet) 650 mg Q6HP PRN PO PAIN SCALE 1-3 OR TEMP>100.4 11/30/24 07:45 Famotidine (Pepcid Injection) 20 mg DAILY IV 11/30/24 10:00 11/30/24 11:07 Nitroglycerin (Ntrostat Sublingual) 0.4 mg Q5MINP PRN SL FOR CHEST PAIN 11/30/24 09:30 Morphine Sulfate 2 mg Q30M PRN IV FOR CHEST PAIN 11/30/24 09:30 Vital Signs Vital Signs Date Time Temp Pulse Resp B/P (MAP) Pulse Ox O2 Delivery O2 Flow Rate FiO2 11/30/24 18:00 91 17 136/65 (88) 99 11/30/24 14:00 98.2 98.2 11/30/24 11:03 10.0 11/30/24 07:27 Non-Rebreather N/A Physical Exam Gen.: Patient lying in bed in no apparent distress. On supplemental oxygen. Head: Normocephalic, atraumatic. Eyes: EOMI/PERRLA. Ears: Normal hearing. Normal anatomy. Neck/trachea: Trachea midline, supple. Nose: Normal external anatomy. Mouth: Moist mucous membranes. Chest: Decreased air entry bilaterally. No wheezing or rhonchi. Cardiovascular: Positive S1, positive S2. Regular rate and rhythm. Abdomen: Positive bowel sounds in all 4 quadrants. Soft, non-tender, non- distended. : Deferred. Rectal: Deferred. Skin: Warm, dry. Intact. Extremities: 2+ radial pulses bilaterally. No lower extremity edema. Neuro: Awake, alert, oriented x3. No gross motor or sensory deficits. Cranial nerves II through XII intact. Gait not assessed. Labs/Diagnostic Data Labs Test 11/30/24 14:46 11/30/24 11:29 11/30/24 06:46 11/30/24 06:34 Range/Units Urine Color Yellow Yellow Urine Clarity Clear Clear Urine pH 5.0 5.0-9.0 Urine Specific [place] 1.021 1.001-1.035 Urine Protein Trace H Negative Urine Ketones Negative Negative Urine Blood Negative Negative /uL Urine Nitrite Negative Negative Urine Bilirubin Negative Negative Urine Urobilinogen Normal Negative mg/dL Urine Leukocyte Esterase Negative Negative /uL Urine RBC 1 0 - 3 /hpf Urine WBC 2 0 - 3 /hpf Urine Squamous Epithelial Cells None seen <5 /hpf Urine Bacteria None seen None Seen /hpf Urine Hyaline Casts Few 0 - 2 /lpf Urine Creatinine 151.60 H 30.0-125.0 mg/dL Urine Protein/Creatinine Ratio 0.16 Urine Sodium 14 L 40-220 mmol/L Urine Glucose 4+ H Normal mg/dL Urine Total Protein 23.8 H 1-14 mg/dL POC Glucose 338 H 70-106 mg/dl White Blood Count 19.5 H 4.4-10.8 10^3/uL Red Blood Count 4.16 L 4.5-5.90 10^6/uL Hemoglobin 11.5 L 13.5-17.5 g/dL Hematocrit 35.4 L 41.0-53.0 % Mean Corpuscular Volume 85.1 80.0-100.0 fL Mean Corpuscular Hemoglobin 27.6 L 28.0-32.0 pg Mean Corpuscular Hemoglobin Concent 32.5 32.0-36.0 g/dL Red Cell Distribution Width 18.5 H 11.8-14.3 % Platelet Count 313 140-450 10^3/uL Mean Platelet Volume 8.6 6.9-10.8 fL Neutrophils (%) (Auto) 37.0-80.0 % Lymphocytes (%) (Auto) 10.0-50.0 % Monocytes (%) (Auto) 0.0-12.0 % Basophils (%) (Auto) 0.0-2.0 % Neutrophils # (Auto) 1.6-8.6 10 ^3/uL Lymphocytes # (Auto) 0.4-5.4 10 ^3/uL Monocytes # (Auto) 0-1.3 10 ^3/uL Differential Total Cells Counted 100.0 100 Neutrophils % (Manual) 86 H 37.0-80.0 Band Neutrophils % (Manual) 0 Lymphocytes % (Manual) 8 L 10.0-50.0 Monocytes % (Manual) 5 0-12 Eosinophils % (Manual) 1 0-7 Basophils % (Manual) 0 0.0-2.0 Metamyelocytes % (manual) 0 Myelocytes % (Manual) 0 Promyelocytes % (Manual) 0 Blast Cells % (Manual) 0 Reactive Lymphocytes 0 Platelet Estimate [place] Large Platelets Few Troponin I High Sensitivity 5 </=54 ng/L Sodium Level 139 136-145 mmol/L Potassium Level 3.4 L 3.5-5.1 mmol/L Chloride Level 101 98-107 mmol/L Carbon Dioxide Level 25 20-31 mmol/L Anion Gap 13 5-15 Blood Urea Nitrogen 18 9-23 mg/dL Creatinine 2.12 H 0.700-1.30 mg/dL Glomerular Filtration Rate Calc 32 >90 mL/min BUN/Creatinine Ratio 8.5 L 10.0-20.0 Serum Glucose 265 H 74-106 mg/dL Calcium Level 10.8 H 8.7-10.4 mg/dL Assessment Impression: Acute hypoxic respiratory failure AE COPD Pneumonia, likely gram negative CAD, s/p stent Plan: Supplemental oxygen, on 8 LPM Oxymizer Titrate to keep O2 sats above 92%. Taper O2 as tolerated. Monitor respiratory status closely d/t increased O2 requirements Continue bronchodilators. Continue antibiotics Steroids Incentive spirometry Monitor renal function. Monitor electrolytes. Supplement as necessary. Monitor ins and outs. DVT prophylaxis. Prognosis: Poor given patient's multiple co-morbidities. Rest of plan per hospitalist and other consultants. Thank you, COLLINS Jamison, for allowing me to participate in this patient's care. Further recommendations will depend on the patient's clinical course. Please do not hesitate to contact me if you have any questions or concerns. This medical document was created using an electronic medical record system with [employer] system. Although these documentations are being carefully reviewed, there may still be some phonetic and typographical changes. The errors are purely typographical, due to imperfection on the software program, and do not reflect any compromise in the patient's medical care. Plan discussed with: Patient, Other (RN/COLLINS Jamison/) MARILIN FOY MD Nov 30, 2024 18:28
[2024-11-30] MEDS: ALBUTEROL SULF 2.5 MG/0.5ML(0.5%) NEB SOLN NEB PRN (19:01)
[2024-11-30] MEDS: IPRATROPIUM BROM 0.5 MG/2.5ML INH SOL NEB PRN (19:02)
[2024-11-30] MEDS: ATORVASTATIN 20 MG TAB PO SCH (23:08)
[2024-12-01] VITALS (13 sets, daily range): BP systolic 124–179; BP diastolic 65–88; PULSE 86–102; RESP 16–20; TEMP 97.7–98.2; O2SAT 92–99
[2024-12-01 05:34] LABS: Alanine Aminotransferase 14 U/L (7-40); Albumin 4.1 g/dL (3.2-4.8); Alkaline Phosphatase 58 U/L (46-116); Anion Gap 8 (5-15); Aspartate Aminotransferase 14 U/L (13-40); BUN/Creatinine Ratio 15.2 (10.0-20.0); Bilirubin, Total 0.3 mg/dL (0.2-1.0); Carbon Dioxide 26 mmol/L (20-31); Chloride 104 mmol/L (98-107); Potassium 4.8 mmol/L (3.5-5.1); Sodium 138 mmol/L (136-145)
[2024-12-01 05:35] LABS: Total Protein 6.1 g/dL (5.7-8.2)
[2024-12-01 05:45] LABS: Hematocrit 29.4 % (41.0-53.0); Hemoglobin 9.7 g/dL (13.5-17.5); Mean Corpuscular Hemoglobin 27.6 pg (28.0-32.0); Mean Corpuscular Hgb Conc. 33.1 g/dL (32.0-36.0); Mean Corpuscular Volume 83.3 fL (80.0-100.0); Platelet Count (auto) 217 10^3/uL (140-450); Red Blood Cells 3.53 10^6/uL (4.5-5.90); Red Cell Distribution Width 18.9 % (11.8-14.3); White Blood Cell 26.7 10^3/uL (4.4-10.8)
[2024-12-01 05:54] LABS: Blood Urea Nitrogen 25 mg/dL (9-23); Calcium 11.5 mg/dL (8.7-10.4); Glucose 230 mg/dL (74-106)
[2024-12-01 05:58] LABS: Basophils % (manual) 0 (0.0-2.0); Blast Cells 0; Eosinophils % (manual) 0 (0-7); Metamyelocytes % 0; Myelocytes % 0; Promyelocytes % 0; Reactive Lymphocytes 0
[2024-12-01 08:10] LABS: Band Neutrophils % (manual) 13; Lymphocytes % (manual) 1 (10.0-50.0); Monocytes % (manual) 3 (0-12); Platelet Estimate Adequate
[2024-12-01] MEDS: HYDROcodone-ACET 5/325MG TAB PO PRN (09:22)
--- NOTE | 2024-12-01 11:10 | DVHPN2 ---
Progress Note Date Seen: Dec 01, 2024 Medical Necessity Reason Pt with a Central, PICC or Fol: No Subjective Patient reports: Feels better Review of Systems: RESPIRATORY:Abnormal Objective vital signs Vital Sign Date Time Temp Pulse Resp B/P (MAP) Pulse Ox O2 Delivery O2 Flow Rate FiO2 12/01/24 09:00 97.7 95 16 143/77 (99) 93 97.7 12/01/24 08:00 Nasal Cannula* 4 36 Total Intake and Output 11/30/24 11/30/24 12/01/24 15:00 23:00 07:00 Intake Total 300 ml 250 ml Balance 300 ml 250 ml medications Current Medications Medications Dose Ordered Sig/Al Route Start Time Stop Time Status Last Admin Dose Admin Aspirin 81 mg DAILY PO 11/30/24 10:00 12/01/24 09:22 81 MG Atorvastatin Calcium 20 mg HS PO 11/30/24 22:00 11/30/24 23:08 20 MG Methylprednisolone Sodium Succinate 40 mg Q8HR IV 11/30/24 14:00 12/01/24 06:18 40 MG Albuterol 2.5 mg Q4HPRN PRN NEB 11/30/24 07:45 12/01/24 07:13 2.5 MG Ipratropium [place] 0.5 mg Q4HPRN PRN NEB 11/30/24 07:45 12/01/24 07:13 0.5 MG Ceftriaxone Sodium 50 ml @ 100 mls/hr DAILY@09 IV 11/30/24 09:00 12/01/24 09:22 100 MLS/HR Azithromycin 250 ml @ 125 mls/hr DAILY IV 11/30/24 10:00 11/30/24 12:20 125 MLS/HR Alprazolam 0.25 mg Q12HP PRN PO 11/30/24 07:45 Diagnostic Test (Pha) 1 strip ACHS 11/30/24 11:30 12/01/24 06:25 1 STRIP Insulin Human Regular HS SC 11/30/24 22:00 11/30/24 23:08 8 UNITS Insulin Human Regular AC SC 11/30/24 11:30 12/01/24 06:23 6 UNITS Dextrose 50 ml UD PRN IV 11/30/24 07:45 Sodium Chloride 10 ml Q8HR IV 11/30/24 14:00 12/01/24 06:18 10 ML Acetaminophen/ Hydrocodone Bitart 1 tab Q4HP PRN PO 11/30/24 07:45 12/01/24 09:22 1 TAB Ondansetron HCl 4 mg Q4HP PRN IV 11/30/24 07:45 Hold Docusate Sodium 100 mg BIDPRN PRN PO 11/30/24 07:45 Acetaminophen 650 mg Q6HP PRN PO 11/30/24 07:45 Famotidine 20 mg DAILY IV 11/30/24 10:00 12/01/24 09:21 20 MG Nitroglycerin 0.4 mg Q5MINP PRN SL 11/30/24 09:30 Morphine Sulfate 2 mg Q30M PRN IV 11/30/24 09:30 Examination: GENERAL:Normal, LUNGS:Abnormal laboratory and microbiology Laboratory Tests 12/01/24 04:25 Test 12/01/24 04:25 Range/Units Serum Glucose 230 H 74-106 mg/dL Microbiology Date/Time Source Procedure Growth Status 11/30/24 20:25 Sputum Gram Stain - Final Resulted 11/30/24 20:25 Sputum Respiratory Culture - Preliminary Resulted Problem List/Assessment/Plan Problem List/Assessment/Plan Acute kidney injury superimposed Chronic Kidney Disease secondary hemodynamic mediated Chronic kidney disease stage [address] Azar Acute hypoxic respiratory failure Left lower lobe pneumonia Hyperglycemia Anemia of chronic kidney disease Right nonobstructing kidney stone slow improvement in renal function Avoid nephrotoxic medications Mabry catheter Strict I&Os IV antibiotics Pulmonary consult Insulin sliding scale Plan discussed with: Patient SHAWANDA AZAR MD Dec 01, 2024 11:10
--- NOTE | 2024-12-01 12:56 | DVHPN2 ---
Progress Note Date Seen: Dec 01, 2024 Medical Necessity Reason Pt with a Central, PICC or Fol: No Subjective Patient reports: No new complaints Review of Systems: HEENT:Normal, CVS:Normal, RESPIRATORY:Normal, GI:Normal, :Normal, MSK:Normal, NEURO:Normal Objective vital signs Vital Sign Date Time Temp Pulse Resp B/P (MAP) Pulse Ox O2 Delivery O2 Flow Rate FiO2 12/01/24 09:00 97.7 95 16 143/77 (99) 93 97.7 12/01/24 08:00 Nasal Cannula* 4 36 Total Intake and Output 11/30/24 11/30/24 12/01/24 15:00 23:00 07:00 Intake Total 300 ml 250 ml Balance 300 ml 250 ml medications Current Medications Medications Dose Ordered Sig/Al Route Start Time Stop Time Status Last Admin Dose Admin Aspirin 81 mg DAILY PO 11/30/24 10:00 12/01/24 09:22 81 MG Atorvastatin Calcium 20 mg HS PO 11/30/24 22:00 11/30/24 23:08 20 MG Methylprednisolone Sodium Succinate 40 mg Q8HR IV 11/30/24 14:00 12/01/24 06:18 40 MG Albuterol 2.5 mg Q4HPRN PRN NEB 11/30/24 07:45 12/01/24 07:13 2.5 MG Ipratropium [place] 0.5 mg Q4HPRN PRN NEB 11/30/24 07:45 12/01/24 07:13 0.5 MG Ceftriaxone Sodium 50 ml @ 100 mls/hr DAILY@09 IV 11/30/24 09:00 12/01/24 09:22 100 MLS/HR Azithromycin 250 ml @ 125 mls/hr DAILY IV 11/30/24 10:00 11/30/24 12:20 125 MLS/HR Alprazolam 0.25 mg Q12HP PRN PO 11/30/24 07:45 Diagnostic Test (Pha) 1 strip ACHS 11/30/24 11:30 12/01/24 06:25 1 STRIP Insulin Human Regular HS SC 11/30/24 22:00 11/30/24 23:08 8 UNITS Insulin Human Regular AC SC 11/30/24 11:30 12/01/24 06:23 6 UNITS Dextrose 50 ml UD PRN IV 11/30/24 07:45 Sodium Chloride 10 ml Q8HR IV 11/30/24 14:00 12/01/24 06:18 10 ML Acetaminophen/ Hydrocodone Bitart 1 tab Q4HP PRN PO 11/30/24 07:45 12/01/24 09:22 1 TAB Ondansetron HCl 4 mg Q4HP PRN IV 11/30/24 07:45 Hold Docusate Sodium 100 mg BIDPRN PRN PO 11/30/24 07:45 Acetaminophen 650 mg Q6HP PRN PO 11/30/24 07:45 Famotidine 20 mg DAILY IV 11/30/24 10:00 12/01/24 09:21 20 MG Nitroglycerin 0.4 mg Q5MINP PRN SL 11/30/24 09:30 Morphine Sulfate 2 mg Q30M PRN IV 11/30/24 09:30 Examination: GENERAL:Normal, HEENT:Normal, NECK:Normal, LUNGS:Normal, LUNGS:Abnormal (on oxygen), CVS:Normal, ABDOMEN:Normal, MSK:Normal, SKIN:Normal, NEURO:Normal, :Normal laboratory and microbiology Laboratory Tests 12/01/24 04:25 Test 12/01/24 04:25 Range/Units Serum Glucose 230 H 74-106 mg/dL Microbiology Date/Time Source Procedure Growth Status 11/30/24 20:25 Sputum Gram Stain - Final Resulted 11/30/24 20:25 Sputum Respiratory Culture - Preliminary Resulted Problem List/Assessment/Plan Problem List/Assessment/Plan #1 acute resp failure: cont oxygen #2 left pneumonia - gram positive/neg with sepsis: iv antibiotics #3 copd with exacerbation :prednisone #4 cad s/p stent #5 dm: ssi, lantus #6 htn #7 hypothyroidism #8 anxiety #9 ckd stage 3b #10 hyperlipidemia #11 bph advance care planning- full code- time spent 19 mins Plan discussed with: Patient, Spouse Dietary Evaluation Review Comments: Follow CCHO-60g diet with Renal specific 60g protein restriction with 2GNa, 3K, low phos diet Expected Outcomes/Goals: controlled DM with less uremic symptoms Date of Service: Dec 01, 2024 Billing Provider: MOHAN GRUBBS MD Common Visit Codes: [id number] INP/OBS CARE(HIGH) Secondary Visit Codes: [id number] CARE PLAN 30 MINUTES MOHAN GRUBBS MD Dec 01, 2024 12:56
[2024-12-01] MEDS: TAMSULOSIN HYDROCHLORIDE 0.4 MG CAP PO SCH (18:22)
[2024-12-01] MEDS: ALPRAZolam 0.25 MG TAB PO PRN (20:13)
[2024-12-01] MEDS: LOSARTAN POTASSIUM 25 MG TAB PO ONE (20:15)
[2024-12-01] MEDS: PREGABALIN CAPSULE 75 MG CAP PO SCH (22:12)
[2024-12-01] MEDS: INSULIN LANTUS (GLARGINE) 1 /0.01ml (100units/ml) SC SCH (22:14)
--- NOTE | 2024-12-01 23:18 | DVHPN2 ---
Progress Note - Dictate Date Seen: Dec 01, 2024 Medical Necessity Reason Pt with a Central, PICC or Fol: No Subjective Patient seen and examined at bedside. Remains on supplemental oxygen Overnight events reviewed. vital signs Vital Sign Date Time Temp Pulse Resp B/P (MAP) Pulse Ox O2 Delivery O2 Flow Rate FiO2 12/01/24 21:00 98.1 102 19 179/88 (118) 92 98.1 12/01/24 19:10 Nasal Cannula* 3 32 Total Intake and Output 11/30/24 11/30/24 12/01/24 15:00 23:00 07:00 Intake Total 300 ml 250 ml Balance 300 ml 250 ml medications Current Medications Medications Dose Ordered Sig/Al Route Start Time Stop Time Status Last Admin Dose Admin Aspirin 81 mg DAILY PO 11/30/24 10:00 12/01/24 09:22 81 MG Atorvastatin Calcium 20 mg HS PO 11/30/24 22:00 12/01/24 22:12 20 MG Albuterol 2.5 mg Q4HPRN PRN NEB 11/30/24 07:45 12/01/24 19:10 2.5 MG Ipratropium [place] 0.5 mg Q4HPRN PRN NEB 11/30/24 07:45 12/01/24 19:10 0.5 MG Ceftriaxone Sodium 50 ml @ 100 mls/hr DAILY@09 IV 11/30/24 09:00 12/01/24 09:22 100 MLS/HR Azithromycin 250 ml @ 125 mls/hr DAILY IV 11/30/24 10:00 12/01/24 13:26 125 MLS/HR Alprazolam 0.25 mg Q12HP PRN PO 11/30/24 07:45 12/01/24 20:13 0.25 MG Diagnostic Test (Pha) 1 strip ACHS 11/30/24 11:30 12/01/24 22:14 1 STRIP Insulin Human Regular HS SC 11/30/24 22:00 12/01/24 22:13 6 UNITS Insulin Human Regular AC SC 11/30/24 11:30 12/01/24 18:42 12 UNITS Dextrose 50 ml UD PRN IV 11/30/24 07:45 Sodium Chloride 10 ml Q8HR IV 11/30/24 14:00 12/01/24 22:03 10 ML Acetaminophen/ Hydrocodone Bitart 1 tab Q4HP PRN PO 11/30/24 07:45 12/01/24 20:13 1 TAB Ondansetron HCl 4 mg Q4HP PRN IV 11/30/24 07:45 Hold Docusate Sodium 100 mg BIDPRN PRN PO 11/30/24 07:45 Acetaminophen 650 mg Q6HP PRN PO 11/30/24 07:45 Nitroglycerin 0.4 mg Q5MINP PRN SL 11/30/24 09:30 Morphine Sulfate 2 mg Q30M PRN IV 11/30/24 09:30 Famotidine 20 mg DAILY PO 12/02/24 10:00 Prednisone 40 mg DAILY PO 12/02/24 10:00 Tamsulosin HCl 0.4 mg QPM PO 12/01/24 18:00 12/01/24 18:22 0.4 MG Finasteride 5 mg DAILY PO 12/02/24 10:00 Levothyroxine Sodium 75 mcg QAM@0600 PO 12/02/24 06:00 Amlodipine Besylate 5 mg DAILY PO 12/02/24 10:00 Pregabalin 150 mg BID PO 12/01/24 22:00 12/01/24 22:12 150 MG Insulin Glargine 15 units HS SC 12/01/24 22:00 12/01/24 22:14 15 UNITS Losartan Potassium 25 mg DAILY PO 12/02/24 10:00 objective Gen.: Patient lying in bed in no apparent distress. On supplemental oxygen. Head: Normocephalic, atraumatic. Eyes: EOMI/PERRLA. Ears: Normal hearing. Normal anatomy. Neck/trachea: Trachea midline, supple. Nose: Normal external anatomy. Mouth: Moist mucous membranes. Chest: Decreased air entry bilaterally. No wheezing or rhonchi. Cardiovascular: Positive S1, positive S2. Regular rate and rhythm. Abdomen: Positive bowel sounds in all 4 quadrants. Soft, non-tender, non- distended. : Deferred. Rectal: Deferred. Skin: Warm, dry. Intact. Extremities: 2+ radial pulses bilaterally. No lower extremity edema. Neuro: Awake, alert, oriented x3. No gross motor or sensory deficits. Cranial nerves II through XII intact. Gait not assessed. laboratory and microbiology Laboratory Tests 12/01/24 04:25 Test 12/01/24 04:25 Range/Units Serum Glucose 230 H 74-106 mg/dL Assessment/Plan Impression: Acute hypoxic respiratory failure AE COPD Pneumonia, likely gram negative CAD, s/p stent Events: Remains on supplemental oxygen, 3 LPM NC Taper O2 as tolerated Improved O2 requirements Continue bronchodilators Continue steroids - taper due to hyperglycemia Continue antibiotics Incentive spirometry Patient is feeling better. Labs and imaging reviewed. Rest of plan as noted below. Plan: Supplemental oxygen Titrate to keep O2 sats above 92%. Continue bronchodilators. Continue antibiotics Steroids Incentive spirometry Monitor renal function. Monitor electrolytes. Supplement as necessary. Monitor ins and outs. DVT prophylaxis. Prognosis: Poor given patient's multiple co-morbidities. Rest of plan per hospitalist and other consultants. Thank you, RETAIL SALES ASSISTANT Shaheen, for allowing me to participate in this patient's care. Further recommendations will depend on the patient's clinical course. Please do not hesitate to contact me if you have any questions or concerns. This medical document was created using an electronic medical record system with [employer] computerized dictation system. Although these documentations are being carefully reviewed, there may still be some phonetic and typographical changes. The errors are purely typographical, due to imperfection on the software program, and do not reflect any compromise in the patient's medical care. Dietary Evaluation Review Comments: Follow CCHO-60g diet with Renal specific 60g protein restriction with 2GNa, 3K, low phos diet Expected Outcomes/Goals: controlled DM with less uremic symptoms Plan discussed with: Patient, Other (KRYSTINA Lara) MARILIN FOY MD Dec 01, 2024 23:18
[2024-12-02] VITALS (10 sets, daily range): BP systolic 141–169; BP diastolic 78–92; PULSE 74–95; RESP 18–20; TEMP 98.1–98.9; O2SAT 89–98
[2024-12-02 05:14] LABS: Basophils # (auto) 0 10 ^3/uL (0-0.2); Eosinophils # (auto) 0 10 ^3/uL (0-0.8); Hematocrit 28.8 % (41.0-53.0); Hemoglobin 9.4 g/dL (13.5-17.5); Lymphocytes # (auto) 0.9 10 ^3/uL (0.4-5.4); Lymphocytes % (auto) 4.1 % (10.0-50.0); Mean Corpuscular Hemoglobin 27.1 pg (28.0-32.0); Mean Corpuscular Hgb Conc. 32.6 g/dL (32.0-36.0); Mean Corpuscular Volume 83.2 fL (80.0-100.0); Monocytes # (auto) 1.2 10 ^3/uL (0-1.3); Monocytes % (auto) 5.6 % (0.0-12.0); Neutrophils # (auto) 19.8 10 ^3/uL (1.6-8.6); Neutrophils % (auto) 90.3 % (37.0-80.0); Platelet Count (auto) 232 10^3/uL (140-450); Red Blood Cells 3.47 10^6/uL (4.5-5.90); Red Cell Distribution Width 19.5 % (11.8-14.3); White Blood Cell 21.9 10^3/uL (4.4-10.8)
[2024-12-02 05:30] LABS: Chloride 107 mmol/L (98-107); Sodium 141 mmol/L (136-145)
[2024-12-02 05:31] LABS: Anion Gap 7 (5-15); Carbon Dioxide 27 mmol/L (20-31)
[2024-12-02 05:36] LABS: BUN/Creatinine Ratio 23.8 (10.0-20.0)
--- NOTE | 2024-12-02 05:54 | DVH ---
CHEST RADIOGRAPH Indication: left pneumonia Technique: Single frontal view of the chest was obtained COMPARISON: XY CHEST PORTABLE on DOS: 11/30/24 FINDINGS: Lines and Tubes: None Lungs: Increased diffuse left lung airspace disease. Pleura: No effusion. No pneumothorax. Cardiomediastinal contours: Unremarkable Bones: Unremarkable IMPRESSION: Increased diffuse left lung airspace disease.
[2024-12-02 06:06] LABS: Blood Urea Nitrogen 24 mg/dL (9-23); Calcium 10.9 mg/dL (8.7-10.4); Glucose 123 mg/dL (74-106)
[2024-12-02] MEDS: LEVOTHYROXINE SODIUM 25 MCG TAB PO SCH (06:23)
--- NOTE | 2024-12-02 09:32 | DVHPN2 ---
Progress Note Date Seen: Dec 02, 2024 Medical Necessity Reason Pt with a Central, PICC or Fol: No Subjective Patient reports: Feels better Review of Systems: RESPIRATORY:Abnormal Objective vital signs Vital Sign Date Time Temp Pulse Resp B/P (MAP) Pulse Ox O2 Delivery O2 Flow Rate FiO2 12/02/24 09:00 98.7 74 20 141/78 (99) 91 98.7 12/01/24 20:00 Nasal Cannula* 4 36 Total Intake and Output 12/01/24 12/01/24 12/02/24 15:00 23:00 07:00 Intake Total 490 ml 750 ml 700 ml Output Total 900 ml Balance 490 ml 750 ml -200 ml medications Current Medications Medications Dose Ordered Sig/Al Route Start Time Stop Time Status Last Admin Dose Admin Aspirin 81 mg DAILY PO 11/30/24 10:00 12/01/24 09:22 81 MG Atorvastatin Calcium 20 mg HS PO 11/30/24 22:00 12/01/24 22:12 20 MG Albuterol 2.5 mg Q4HPRN PRN NEB 11/30/24 07:45 12/01/24 19:10 2.5 MG Ipratropium [place] 0.5 mg Q4HPRN PRN NEB 11/30/24 07:45 12/01/24 19:10 0.5 MG Ceftriaxone Sodium 50 ml @ 100 mls/hr DAILY@09 IV 11/30/24 09:00 12/01/24 09:22 100 MLS/HR Azithromycin 250 ml @ 125 mls/hr DAILY IV 11/30/24 10:00 12/01/24 13:26 125 MLS/HR Alprazolam 0.25 mg Q12HP PRN PO 11/30/24 07:45 12/01/24 20:13 0.25 MG Diagnostic Test (Pha) 1 strip ACHS 11/30/24 11:30 12/02/24 06:24 1 STRIP Insulin Human Regular HS SC 11/30/24 22:00 12/01/24 22:13 6 UNITS Insulin Human Regular AC SC 11/30/24 11:30 12/01/24 18:42 12 UNITS Dextrose 50 ml UD PRN IV 11/30/24 07:45 Sodium Chloride 10 ml Q8HR IV 11/30/24 14:00 12/02/24 06:23 10 ML Acetaminophen/ Hydrocodone Bitart 1 tab Q4HP PRN PO 11/30/24 07:45 12/01/24 20:13 1 TAB Ondansetron HCl 4 mg Q4HP PRN IV 11/30/24 07:45 Hold Docusate Sodium 100 mg BIDPRN PRN PO 11/30/24 07:45 Acetaminophen 650 mg Q6HP PRN PO 11/30/24 07:45 Nitroglycerin 0.4 mg Q5MINP PRN SL 11/30/24 09:30 Morphine Sulfate 2 mg Q30M PRN IV 11/30/24 09:30 Famotidine 20 mg DAILY PO 12/02/24 10:00 Prednisone 40 mg DAILY PO 12/02/24 10:00 Tamsulosin HCl 0.4 mg QPM PO 12/01/24 18:00 12/01/24 18:22 0.4 MG Finasteride 5 mg DAILY PO 12/02/24 10:00 Levothyroxine Sodium 75 mcg QAM@0600 PO 12/02/24 06:00 12/02/24 06:23 75 MCG Amlodipine Besylate 5 mg DAILY PO 12/02/24 10:00 Pregabalin 150 mg BID PO 12/01/24 22:00 12/01/24 22:12 150 MG Insulin Glargine 15 units HS SC 12/01/24 22:00 12/01/24 22:14 15 UNITS Losartan Potassium 25 mg DAILY PO 12/02/24 10:00 Examination: GENERAL:Abnormal, LUNGS:Abnormal, ABDOMEN:Normal laboratory and microbiology Laboratory Tests 12/02/24 04:45 Test 12/02/24 04:45 Range/Units Serum Glucose 123 #H 74-106 mg/dL Microbiology Date/Time Source Procedure Growth Status 11/30/24 20:25 Sputum Gram Stain - Final Resulted 11/30/24 20:25 Sputum Respiratory Culture - Preliminary Resulted Problem List/Assessment/Plan Problem List/Assessment/Plan Acute kidney injury superimposed Chronic Kidney Disease secondary hemodynamic mediated Chronic kidney disease stage [address] Azar Acute hypoxic respiratory failure Left lower lobe pneumonia Hyperglycemia Anemia of chronic kidney disease Right nonobstructing kidney stone Rosa has resolved, still feels weak and tired Avoid nephrotoxic medications Mabry catheter Strict I&Os IV antibiotics Pulmonary consult Insulin sliding scale from renal standpoint can followup in renal clinic Plan discussed with: Patient Dietary Evaluation Review Comments: Follow [facility]-60g diet with Renal specific 60g protein restriction with 2GNa, 3K, low phos diet Expected Outcomes/Goals: controlled DM with less uremic symptoms SHAWANDA AZAR MD Dec 02, 2024 09:32
[2024-12-02] MEDS: FINASTERIDE 5 MG TAB PO SCH (09:38)
[2024-12-02] MEDS: FAMOTIDINE 20 MG TAB PO SCH (09:39)
[2024-12-02] MEDS: amLODIPine BESYLATE 5 MG TAB PO SCH (09:40)
[2024-12-02] MEDS: LOSARTAN POTASSIUM 25 MG TAB PO SCH (09:41)
[2024-12-02] MEDS: predniSONE 20 MG TAB PO SCH (09:41)
--- NOTE | 2024-12-02 13:24 | DVHPN2 ---
Progress Note Date Seen: Dec 02, 2024 Medical Necessity Reason Pt with a Central, PICC or Fol: No Subjective Patient reports: No new complaints Review of Systems: HEENT:Normal, CVS:Normal, RESPIRATORY:Normal, GI:Normal, :Normal, MSK:Normal, NEURO:Normal Objective vital signs Vital Sign Date Time Temp Pulse Resp B/P (MAP) Pulse Ox O2 Delivery O2 Flow Rate FiO2 12/02/24 12:37 98.3 83 18 160/92 (114) 98 98.3 12/02/24 09:46 Nasal Cannula* 3 32 Total Intake and Output 12/01/24 12/01/24 12/02/24 15:00 23:00 07:00 Intake Total 490 ml 750 ml 700 ml Output Total 900 ml Balance 490 ml 750 ml -200 ml medications Current Medications Medications Dose Ordered Sig/Al Route Start Time Stop Time Status Last Admin Dose Admin Aspirin 81 mg DAILY PO 11/30/24 10:00 12/02/24 09:41 81 MG Atorvastatin Calcium 20 mg HS PO 11/30/24 22:00 12/01/24 22:12 20 MG Albuterol 2.5 mg Q4HPRN PRN NEB 11/30/24 07:45 12/01/24 19:10 2.5 MG Ipratropium [place] 0.5 mg Q4HPRN PRN NEB 11/30/24 07:45 12/01/24 19:10 0.5 MG Ceftriaxone Sodium 50 ml @ 100 mls/hr DAILY@09 IV 11/30/24 09:00 12/02/24 09:37 100 MLS/HR Azithromycin 250 ml @ 125 mls/hr DAILY IV 11/30/24 10:00 12/02/24 12:19 125 MLS/HR Alprazolam 0.25 mg Q12HP PRN PO 11/30/24 07:45 12/01/24 20:13 0.25 MG Diagnostic Test (Pha) 1 strip ACHS 11/30/24 11:30 12/02/24 12:19 1 STRIP Insulin Human Regular HS SC 11/30/24 22:00 12/01/24 22:13 6 UNITS Insulin Human Regular AC SC 11/30/24 11:30 12/01/24 18:42 12 UNITS Dextrose 50 ml UD PRN IV 11/30/24 07:45 Sodium Chloride 10 ml Q8HR IV 11/30/24 14:00 12/02/24 06:23 10 ML Acetaminophen/ Hydrocodone Bitart 1 tab Q4HP PRN PO 11/30/24 07:45 12/01/24 20:13 1 TAB Ondansetron HCl 4 mg Q4HP PRN IV 11/30/24 07:45 Hold Docusate Sodium 100 mg BIDPRN PRN PO 11/30/24 07:45 Acetaminophen 650 mg Q6HP PRN PO 11/30/24 07:45 Nitroglycerin 0.4 mg Q5MINP PRN SL 11/30/24 09:30 Morphine Sulfate 2 mg Q30M PRN IV 11/30/24 09:30 Famotidine 20 mg DAILY PO 12/02/24 10:00 12/02/24 09:39 20 MG Prednisone 40 mg DAILY PO 12/02/24 10:00 12/02/24 09:41 40 MG Tamsulosin HCl 0.4 mg QPM PO 12/01/24 18:00 12/01/24 18:22 0.4 MG Finasteride 5 mg DAILY PO 12/02/24 10:00 12/02/24 09:38 5 MG Levothyroxine Sodium 75 mcg QAM@0600 PO 12/02/24 06:00 12/02/24 06:23 75 MCG Amlodipine Besylate 5 mg DAILY PO 12/02/24 10:00 12/02/24 09:40 5 MG Pregabalin 150 mg BID PO 12/01/24 22:00 12/02/24 12:18 150 MG Insulin Glargine 15 units HS SC 12/01/24 22:00 12/01/24 22:14 15 UNITS Losartan Potassium 25 mg DAILY PO 12/02/24 10:00 12/02/24 09:41 25 MG Examination: GENERAL:Normal, HEENT:Normal, NECK:Normal, LUNGS:Normal, LUNGS:Abnormal (on oxygen, decreased left side), CVS:Normal, ABDOMEN:Normal, MSK:Normal, SKIN:Normal, NEURO:Normal, :Normal laboratory and microbiology Laboratory Tests 12/02/24 04:45 Test 12/02/24 04:45 Range/Units Serum Glucose 123 #H 74-106 mg/dL Microbiology Date/Time Source Procedure Growth Status 11/30/24 20:25 Sputum Gram Stain - Final Resulted 11/30/24 20:25 Sputum Respiratory Culture - Preliminary Resulted Problem List/Assessment/Plan Problem List/Assessment/Plan #1 acute resp failure: cont oxygen #2 left pneumonia - gram positive/neg with sepsis: iv antibiotics, ct chest #3 copd with exacerbation :prednisone #4 cad s/p stent #5 dm: ssi, lantus #6 htn #7 hypothyroidism #8 anxiety #9 ckd stage 3b #10 hyperlipidemia #11 bph advance care planning- full code- time spent 19 mins Plan discussed with: Patient My Orders My Orders Orders - MOHAN GRUBBS MD Procedure Category Date Status Time Chest Without Contrast CT 12/02/24 Verified 13:22 Basic Metabolic Panel LAB 12/03/24 Verified 06:00 Complete Blood Count LAB 12/03/24 Verified 06:00 Dietary Evaluation Review Comments: Follow CCHO-60g diet with Renal specific 60g protein restriction with 2GNa, 3K, low phos diet Expected Outcomes/Goals: controlled DM with less uremic symptoms Date of Service: Dec 02, 2024 Billing Provider: MOHAN GRUBBS MD Common Visit Codes: [id number] INP/OBS CARE(HIGH) MOHAN GRUBBS MD Dec 02, 2024 13:24
--- NOTE | 2024-12-02 14:47 | DVH ---
EXAM: CT CHEST WITHOUT CONTRAST History: left lung pneumonia Comparison Study: None available TECHNIQUE: Multidetector CT of the chest was performed. Imaging was performed without IV contrast. Ax ial, coronal, and sagittal multiplanar reformats were obtained from the axial data set by the technol ogist. Radiation Dose : CTDI vol 12.63 mGy, DLP 484.46 mGy*cm. Findings: Lungs: Multifocal groundglass opacities in both lungs, left greater than right. Pleura: Unremarkable Heart/Great vessels: The visualized heart is unremarkable. No cardiomegaly or pericardial effusion. Mediastinum: Prominent mediastinal nodes. Soft tissues/Bones: Mild to moderate multilevel degenerative changes of the thoracic spine. The partially visualized upper abdomen is within normal limits. Impression: 1. Multifocal groundglass opacities in both lungs favored an infectious/inflammatory etiology. 2. Prominent mediastinal nodes favored reactive.
--- NOTE | 2024-12-02 22:22 | DVHPN2 ---
Progress Note - Dictate Date Seen: Dec 02, 2024 Medical Necessity Reason Pt with a Central, PICC or Fol: No Subjective Patient seen and examined at bedside. Remains on supplemental oxygen Overnight events reviewed. vital signs Vital Sign Date Time Temp Pulse Resp B/P (MAP) Pulse Ox O2 Delivery O2 Flow Rate FiO2 12/02/24 21:00 98.1 85 19 169/91 (117) 97 98.1 12/02/24 09:46 Nasal Cannula* 3 32 Total Intake and Output 12/01/24 12/01/24 12/02/24 15:00 23:00 07:00 Intake Total 490 ml 1000 ml 700 ml Output Total 900 ml Balance 490 ml 1000 ml -200 ml medications Current Medications Medications Dose Ordered Sig/Al Route Start Time Stop Time Status Last Admin Dose Admin Aspirin 81 mg DAILY PO 11/30/24 10:00 12/02/24 09:41 81 MG Atorvastatin Calcium 20 mg HS PO 11/30/24 22:00 12/01/24 22:12 20 MG Albuterol 2.5 mg Q4HPRN PRN NEB 11/30/24 07:45 12/01/24 19:10 2.5 MG Ipratropium [place] 0.5 mg Q4HPRN PRN NEB 11/30/24 07:45 12/01/24 19:10 0.5 MG Ceftriaxone Sodium 50 ml @ 100 mls/hr DAILY@09 IV 11/30/24 09:00 12/02/24 09:37 100 MLS/HR Azithromycin 250 ml @ 125 mls/hr DAILY IV 11/30/24 10:00 12/02/24 12:19 125 MLS/HR Alprazolam 0.25 mg Q12HP PRN PO 11/30/24 07:45 12/01/24 20:13 0.25 MG Diagnostic Test (Pha) 1 strip ACHS 11/30/24 11:30 12/02/24 17:50 1 STRIP Insulin Human Regular HS SC 11/30/24 22:00 12/01/24 22:13 6 UNITS Insulin Human Regular AC SC 11/30/24 11:30 12/02/24 18:32 9 UNITS Dextrose 50 ml UD PRN IV 11/30/24 07:45 Sodium Chloride 10 ml Q8HR IV 11/30/24 14:00 12/02/24 16:02 10 ML Acetaminophen/ Hydrocodone Bitart 1 tab Q4HP PRN PO 11/30/24 07:45 12/01/24 20:13 1 TAB Ondansetron HCl 4 mg Q4HP PRN IV 11/30/24 07:45 Hold Docusate Sodium 100 mg BIDPRN PRN PO 11/30/24 07:45 Acetaminophen 650 mg Q6HP PRN PO 11/30/24 07:45 Nitroglycerin 0.4 mg Q5MINP PRN SL 11/30/24 09:30 Morphine Sulfate 2 mg Q30M PRN IV 11/30/24 09:30 Famotidine 20 mg DAILY PO 12/02/24 10:00 12/02/24 09:39 20 MG Prednisone 40 mg DAILY PO 12/02/24 10:00 12/02/24 09:41 40 MG Tamsulosin HCl 0.4 mg QPM PO 12/01/24 18:00 12/02/24 18:28 0.4 MG Finasteride 5 mg DAILY PO 12/02/24 10:00 12/02/24 09:38 5 MG Levothyroxine Sodium 75 mcg QAM@0600 PO 12/02/24 06:00 12/02/24 06:23 75 MCG Amlodipine Besylate 5 mg DAILY PO 12/02/24 10:00 12/02/24 09:40 5 MG Pregabalin 150 mg BID PO 12/01/24 22:00 12/02/24 12:18 150 MG Insulin Glargine 15 units HS SC 12/01/24 22:00 12/01/24 22:14 15 UNITS Losartan Potassium 25 mg DAILY PO 12/02/24 10:00 12/02/24 09:41 25 MG objective Gen.: Patient lying in bed in no apparent distress. On supplemental oxygen. Head: Normocephalic, atraumatic. Eyes: EOMI/PERRLA. Ears: Normal hearing. Normal anatomy. Neck/trachea: Trachea midline, supple. Nose: Normal external anatomy. Mouth: Moist mucous membranes. Chest: Decreased air entry bilaterally. No wheezing or rhonchi. Cardiovascular: Positive S1, positive S2. Regular rate and rhythm. Abdomen: Positive bowel sounds in all 4 quadrants. Soft, non-tender, non- distended. : Deferred. Rectal: Deferred. Skin: Warm, dry. Intact. Extremities: 2+ radial pulses bilaterally. No lower extremity edema. Neuro: Awake, alert, oriented x3. No gross motor or sensory deficits. Cranial nerves II through XII intact. Gait not assessed. laboratory and microbiology Laboratory Tests 12/02/24 04:45 Test 12/02/24 04:45 Range/Units Serum Glucose 123 #H 74-106 mg/dL Assessment/Plan Impression: Acute hypoxic respiratory failure AE COPD Pneumonia, likely gram negative CAD, s/p stent Events: Remains on supplemental oxygen, 2 LPM NC Taper O2 as tolerated Improved O2 requirements CXR notable for Increased diffuse left lung airspace disease. Continue bronchodilators Continue steroids - taper due to hyperglycemia Continue antibiotics Incentive spirometry Patient is feeling better. Labs and imaging reviewed. Rest of plan as noted below. Plan: Supplemental oxygen Titrate to keep O2 sats above 92%. Continue bronchodilators. Continue antibiotics Steroids Incentive spirometry Monitor renal function. Monitor electrolytes. Supplement as necessary. Monitor ins and outs. DVT prophylaxis. Prognosis: Guarded given patient's multiple co-morbidities. Rest of plan per hospitalist and other consultants. Thank you, COLLINS Jamison, for allowing me to participate in this patient's care. Further recommendations will depend on the patient's clinical course. Please do not hesitate to contact me if you have any questions or concerns. This medical document was created using an electronic medical record system with [employer] dictation system. Although these documentations are being carefully reviewed, there may still be some phonetic and typographical changes. The errors are purely typographical, due to imperfection on the software program, and do not reflect any compromise in the patient's medical care. Dietary Evaluation Review Comments: Follow CCHO-60g diet with Renal specific 60g protein restriction with 2GNa, 3K, low phos diet Expected Outcomes/Goals: controlled DM with less uremic symptoms Plan discussed with: Patient, Other (KRYSTINA Cantu) MARILIN FOY MD Dec 02, 2024 22:22
[2024-12-03] VITALS (15 sets, daily range): BP systolic 140–168; BP diastolic 79–98; PULSE 74–88; RESP 16–18; TEMP 97.6–98.8; O2SAT 91–99
[2024-12-03] MEDS: ACETAMINOPHEN 325 MG TAB PO PRN (06:15)
[2024-12-03 07:58] LABS: Chloride 105 mmol/L (98-107); Sodium 141 mmol/L (136-145)
[2024-12-03 07:59] LABS: Anion Gap 8 (5-15); Calcium 10.3 mg/dL (8.7-10.4); Carbon Dioxide 28 mmol/L (20-31)
[2024-12-03 08:01] LABS: Potassium 3.4 mmol/L (3.5-5.1)
[2024-12-03 08:04] LABS: BUN/Creatinine Ratio 18.8 (10.0-20.0); Blood Urea Nitrogen 19 mg/dL (9-23)
[2024-12-03 08:10] LABS: Basophils # (auto) 0 10 ^3/uL (0-0.2); Basophils % (auto) 0.1 % (0.0-2.0); Eosinophils # (auto) 0 10 ^3/uL (0-0.8); Eosinophils % (auto) 0.3 % (0.0-7.0); Glucose 117 mg/dL (74-106); Hematocrit 31.1 % (41.0-53.0); Hemoglobin 10.3 g/dL (13.5-17.5); Lymphocytes # (auto) 1.4 10 ^3/uL (0.4-5.4); Lymphocytes % (auto) 9.1 % (10.0-50.0); Mean Corpuscular Hemoglobin 27.5 pg (28.0-32.0); Mean Corpuscular Hgb Conc. 33.2 g/dL (32.0-36.0); Mean Corpuscular Volume 82.7 fL (80.0-100.0); Monocytes # (auto) 0.8 10 ^3/uL (0-1.3); Monocytes % (auto) 5.5 % (0.0-12.0); Nucleated Red Blood Cells % 0.1 %; Platelet Count (auto) 267 10^3/uL (140-450); Red Blood Cells 3.76 10^6/uL (4.5-5.90); Red Cell Distribution Width 19.1 % (11.8-14.3); White Blood Cell 15.3 10^3/uL (4.4-10.8)
--- NOTE | 2024-12-03 19:13 | DVHPN2 ---
Subjective Decreasing dyspnea Reviewed: Care Plan, H&P, Labs, Medications, Previous Orders, Radiology, Other (Consultations) Changes from previous H/P or p: Changes Objective Vitals Vital Signs Date Time Temp Pulse Resp B/P (MAP) Pulse Ox O2 Delivery O2 Flow Rate FiO2 12/03/24 17:00 97.7 83 16 153/80 (104) 97 97.7 12/03/24 11:03 3.0 12/03/24 10:00 Nasal Cannula* 32 Intake/Output Intake and Output 12/03/24 07:00 Intake Total 2600 ml Output Total 1000 ml Balance 1600 ml Intake Oral 2300 ml IV Total 300 ml Output Urine Total 1000 ml # Bowel Movements 1 General Appearance: Alert, Oriented X3, Cooperative, No acute distress HEENT: Atraumatic Lungs: Other (Decreased air entry bilateral with scattered wheezing and crackles) Cardiovascular: Regular rate, Normal S1, Normal S2 Abdomen: Normal bowel sounds, Soft, No tenderness Neuro: Normal speech, Cranial nerves 3-12 NL Psych/Mental Status: Mental status NL, Mood NL Medications Current Medications Medications Dose Ordered Sig/Al Route Start Time Stop Time Status Last Admin Dose Admin Aspirin 81 mg DAILY PO 11/30/24 10:00 12/03/24 08:59 81 MG Atorvastatin Calcium 20 mg HS PO 11/30/24 22:00 12/02/24 22:45 20 MG Albuterol 2.5 mg Q4HPRN PRN NEB 11/30/24 07:45 12/03/24 06:10 2.5 MG Ipratropium [place] 0.5 mg Q4HPRN PRN NEB 11/30/24 07:45 12/03/24 06:10 0.5 MG Ceftriaxone Sodium 50 ml @ 100 mls/hr DAILY@09 IV 11/30/24 09:00 12/03/24 08:56 100 MLS/HR Azithromycin 250 ml @ 125 mls/hr DAILY IV 11/30/24 10:00 12/03/24 13:15 125 MLS/HR Alprazolam 0.25 mg Q12HP PRN PO 11/30/24 07:45 12/01/24 20:13 0.25 MG Diagnostic Test (Pha) 1 strip ACHS 11/30/24 11:30 12/03/24 17:16 1 STRIP Insulin Human Regular HS SC 11/30/24 22:00 12/02/24 22:44 4 UNITS Insulin Human Regular AC SC 11/30/24 11:30 12/03/24 17:04 3 UNITS Dextrose 50 ml UD PRN IV 11/30/24 07:45 Sodium Chloride 10 ml Q8HR IV 11/30/24 14:00 12/03/24 16:54 10 ML Acetaminophen/ Hydrocodone Bitart 1 tab Q4HP PRN PO 11/30/24 07:45 12/03/24 16:55 1 TAB Ondansetron HCl 4 mg Q4HP PRN IV 11/30/24 07:45 Hold Docusate Sodium 100 mg BIDPRN PRN PO 11/30/24 07:45 Acetaminophen 650 mg Q6HP PRN PO 11/30/24 07:45 12/03/24 06:15 650 MG Nitroglycerin 0.4 mg Q5MINP PRN SL 11/30/24 09:30 Morphine Sulfate 2 mg Q30M PRN IV 11/30/24 09:30 Famotidine 20 mg DAILY PO 12/02/24 10:00 12/03/24 08:58 20 MG Prednisone 40 mg DAILY PO 12/02/24 10:00 12/03/24 08:58 40 MG Tamsulosin HCl 0.4 mg QPM PO 12/01/24 18:00 12/03/24 17:17 0.4 MG Finasteride 5 mg DAILY PO 12/02/24 10:00 12/03/24 08:58 5 MG Levothyroxine Sodium 75 mcg QAM@0600 PO 12/02/24 06:00 12/03/24 06:15 75 MCG Amlodipine Besylate 5 mg DAILY PO 12/02/24 10:00 12/03/24 08:59 5 MG Pregabalin 150 mg BID PO 12/01/24 22:00 12/03/24 16:55 150 MG Insulin Glargine 15 units HS SC 12/01/24 22:00 12/02/24 22:45 15 UNITS Losartan Potassium 25 mg DAILY PO 12/02/24 10:00 12/03/24 08:57 25 MG Laboratory Results Laboratory Tests 12/03/24 07:20 Chemistry Test 12/03/24 07:20 Calcium Level 10.3 mg/dL (8.7-10.4) Urinalysis Test 11/30/24 14:46 Urine Color Yellow (Yellow) Urine Clarity Clear (Clear) Urine pH 5.0 (5.0-9.0) Urine Specific [place] 1.021 (1.001-1.035) Urine Protein Trace (Negative) H Urine Ketones Negative (Negative) Urine Blood Negative /uL (Negative) Urine Nitrite Negative (Negative) Urine Bilirubin Negative (Negative) Urine Urobilinogen Normal mg/dL (Negative) Urine Leukocyte Esterase Negative /uL (Negative) Urine RBC 1 /hpf (0 - 3) Urine WBC 2 /hpf (0 - 3) Urine Squamous Epithelial Cells None seen /hpf (<5) Urine Bacteria None seen /hpf (None Seen) Urine Hyaline Casts Few /lpf (0 - 2) Urine Creatinine 151.60 mg/dL (30.0-125.0) H Urine Protein/Creatinine Ratio 0.16 Urine Sodium 14 mmol/L (40-220) L Urine Glucose 4+ mg/dL (Normal) H Urine Total Protein 23.8 mg/dL (1-14) H Microbiology Microbiology Date/Time Source Procedure Growth Status 11/30/24 20:25 Sputum Gram Stain - Final Complete 11/30/24 20:25 Respiratory Culture - Final Klebsiella pneumoniae Complete Labs and/or images reviewed: Labs reviewed by me, Image(s) reviewed by me Assessment/Plan Assessment/Plan Covering Dr. Appiah: #Sepsis with severe leukocytosis due to left-sided pneumonia; reviewed available cultures results; continue IV antibiotics; continue monitoring #Severe leukocytosis due to sepsis; management as above; decreasing counts; continue monitoring #Acute hypoxic respiratory failure due to COPD exacerbation secondary to left- sided pneumonia; continue oxygen therapy as needed; continue steroids; continue IV antibiotics; pulmonology is following; continue monitoring #Left-sided pneumonia; Gram-positive versus Gram-negative; reviewed imaging studies including chest CT and chest x-rays; continue IV antibiotics; continue monitoring #COPD exacerbation; not on home oxygen; details and management as above; continue monitoring #JOSELUIS on CKD stage IIIB; most likely vasomotor nephropathy in the setting of sepsis; avoid nephrotoxic agents; nephrology is following; continue monitoring #CAD status post stenting; asymptomatic; continue current medical management with aspirin and statin; telemetry; continue monitoring #Hypothyroidism; continue levothyroxine; continue monitoring #Uncontrolled diabetes mellitus type 2 with hyperglycemia hemoglobin A1c 8.3%; continue insulin sliding scale glycemia protocol and Lantus; continue monitoring #Hypertensive heart disease; continue antihypertensive medications as indicated; continue monitoring #Hyperlipidemia; continue statin; continue monitoring #BPH; controlled; continue current medical management; continue monitoring #Normocytic anemia; due to CKD; no signs/symptoms of active bleeding; continue monitoring #Right nonobstructing kidney stone; reviewed the available imaging; no active issues; continue monitoring #Mild hypokalemia; unclear etiology; to replace as indicated; continue monitoring #Diabetic neuropathy; continue pregabalin; continue monitoring Goals of care discussed for 20 minutes; full code. Late Entry. This medical document was created using an electronic medical record system with computerized dictation system. Although this document has been carefully reviewed, there might still be some phonetic and typographical errors. These areas are purely typographical due to imperfections of the software programs, and do not reflect any compromise in the patient's medical care. Plan discussed with: Patient, Other (Nurse) Date of Service: Dec 03, 2024 Billing Provider: JOSUE MENG MD Common Visit Codes: [id number] INP/OBS CARE(HIGH) Secondary Visit Codes: [id number] CARE PLAN 30 MINUTES (20 minutes) JOSUE MENG MD Dec 03, 2024 19:13
[2024-12-03] MEDS: POTASSIUM EFFERVESENT TAB 25 MEQ PO ONE (20:23)
--- NOTE | 2024-12-03 23:21 | DVHPN2 ---
Progress Note - Dictate Date Seen: Dec 03, 2024 Medical Necessity Reason Pt with a Central, PICC or Fol: No Subjective Patient seen and examined at bedside. Remains on supplemental oxygen Overnight events reviewed. vital signs Vital Sign Date Time Temp Pulse Resp B/P (MAP) Pulse Ox O2 Delivery O2 Flow Rate FiO2 12/03/24 21:00 98.8 80 18 168/81 (110) 97 98.8 12/03/24 20:59 Nasal Cannula* 3 32 Total Intake and Output 12/02/24 12/02/24 12/03/24 15:00 23:00 07:00 Intake Total 750 ml 950 ml 900 ml Output Total 1000 ml Balance 750 ml -50 ml 900 ml medications Current Medications Medications Dose Ordered Sig/Al Route Start Time Stop Time Status Last Admin Dose Admin Aspirin 81 mg DAILY PO 11/30/24 10:00 12/03/24 08:59 81 MG Atorvastatin Calcium 20 mg HS PO 11/30/24 22:00 12/03/24 22:39 20 MG Albuterol 2.5 mg Q4HPRN PRN NEB 11/30/24 07:45 12/03/24 06:10 2.5 MG Ipratropium [place] 0.5 mg Q4HPRN PRN NEB 11/30/24 07:45 12/03/24 06:10 0.5 MG Ceftriaxone Sodium 50 ml @ 100 mls/hr DAILY@09 IV 11/30/24 09:00 12/03/24 08:56 100 MLS/HR Azithromycin 250 ml @ 125 mls/hr DAILY IV 11/30/24 10:00 12/03/24 13:15 125 MLS/HR Alprazolam 0.25 mg Q12HP PRN PO 11/30/24 07:45 12/03/24 22:39 0.25 MG Diagnostic Test (Pha) 1 strip ACHS 11/30/24 11:30 12/03/24 22:00 1 STRIP Insulin Human Regular HS SC 11/30/24 22:00 12/03/24 22:39 3 UNITS Insulin Human Regular AC SC 11/30/24 11:30 12/03/24 17:04 3 UNITS Dextrose 50 ml UD PRN IV 11/30/24 07:45 Sodium Chloride 10 ml Q8HR IV 11/30/24 14:00 12/03/24 22:15 10 ML Acetaminophen/ Hydrocodone Bitart 1 tab Q4HP PRN PO 11/30/24 07:45 12/03/24 16:55 1 TAB Ondansetron HCl 4 mg Q4HP PRN IV 11/30/24 07:45 Hold Docusate Sodium 100 mg BIDPRN PRN PO 11/30/24 07:45 Acetaminophen 650 mg Q6HP PRN PO 11/30/24 07:45 12/03/24 20:23 650 MG Nitroglycerin 0.4 mg Q5MINP PRN SL 11/30/24 09:30 Morphine Sulfate 2 mg Q30M PRN IV 11/30/24 09:30 Famotidine 20 mg DAILY PO 12/02/24 10:00 12/03/24 08:58 20 MG Prednisone 40 mg DAILY PO 12/02/24 10:00 12/03/24 08:58 40 MG Tamsulosin HCl 0.4 mg QPM PO 12/01/24 18:00 12/03/24 17:17 0.4 MG Finasteride 5 mg DAILY PO 12/02/24 10:00 12/03/24 08:58 5 MG Levothyroxine Sodium 75 mcg QAM@0600 PO 12/02/24 06:00 12/03/24 06:15 75 MCG Amlodipine Besylate 5 mg DAILY PO 12/02/24 10:00 12/03/24 08:59 5 MG Pregabalin 150 mg BID PO 12/01/24 22:00 12/03/24 22:39 150 MG Insulin Glargine 15 units HS SC 12/01/24 22:00 12/03/24 22:38 15 UNITS Losartan Potassium 25 mg DAILY PO 12/02/24 10:00 12/03/24 08:57 25 MG Hydralazine HCl 10 mg Q6HP PRN IV 12/03/24 21:15 objective Gen.: Patient lying in bed in no apparent distress. On supplemental oxygen. Head: Normocephalic, atraumatic. Eyes: EOMI/PERRLA. Ears: Normal hearing. Normal anatomy. Neck/trachea: Trachea midline, supple. Nose: Normal external anatomy. Mouth: Moist mucous membranes. Chest: Decreased air entry bilaterally. No wheezing or rhonchi. Cardiovascular: Positive S1, positive S2. Regular rate and rhythm. Abdomen: Positive bowel sounds in all 4 quadrants. Soft, non-tender, non- distended. : Deferred. Rectal: Deferred. Skin: Warm, dry. Intact. Extremities: 2+ radial pulses bilaterally. No lower extremity edema. Neuro: Awake, alert, oriented x3. No gross motor or sensory deficits. Cranial nerves II through XII intact. Gait not assessed. laboratory and microbiology Laboratory Tests 12/03/24 07:20 Test 12/03/24 07:20 Range/Units Serum Glucose 117 H 74-106 mg/dL Assessment/Plan Impression: Acute hypoxic respiratory failure AE COPD Pneumonia, likely gram negative CAD, s/p stent Events: Remains on supplemental oxygen, 3 LPM NC Taper O2 as tolerated Continue bronchodilators Continue steroids - taper due to hyperglycemia Continue antibiotics Incentive spirometry WBC improving Monitor renal function Patient is feeling better. Labs and imaging reviewed. Rest of plan as noted below. Plan: Supplemental oxygen Titrate to keep O2 sats above 92%. Continue bronchodilators. Continue antibiotics Steroids Incentive spirometry Monitor renal function. Monitor electrolytes. Supplement as necessary. Monitor ins and outs. DVT prophylaxis. Prognosis: Guarded given patient's multiple co-morbidities. Rest of plan per hospitalist and other consultants. Thank you, [employer] Shaheen, for allowing me to participate in this patient's care. Further recommendations will depend on the patient's clinical course. Please do not hesitate to contact me if you have any questions or concerns. This medical document was created using an electronic medical record system with [employer] dictation system. Although these documentations are being carefully reviewed, there may still be some phonetic and typographical changes. The errors are purely typographical, due to imperfection on the software program, and do not reflect any compromise in the patient's medical care. Dietary Evaluation Review Comments: Follow CCHO-60g diet with Renal specific 60g protein restriction with 2GNa, 3K, low phos diet Expected Outcomes/Goals: controlled DM with less uremic symptoms Plan discussed with: Patient, Other (KRYSTINA Denny/MARILIN Mcculolugh MD Dec 03, 2024 23:21
[2024-12-03] MEDS: hydrALAZINE HCL 20 MG/ML VL IV PRN (23:46)
[2024-12-04] VITALS (10 sets, daily range): BP systolic 135–167; BP diastolic 72–86; PULSE 83–101; RESP 16–20; TEMP 97.6–99.7; O2SAT 92–97
[2024-12-04 06:08] LABS: Basophils # (auto) 0 10 ^3/uL (0-0.2); Basophils % (auto) 0.4 % (0.0-2.0); Eosinophils # (auto) 0.2 10 ^3/uL (0-0.8); Eosinophils % (auto) 1.7 % (0.0-7.0); Hematocrit 32.2 % (41.0-53.0); Lymphocytes # (auto) 1.3 10 ^3/uL (0.4-5.4); Lymphocytes % (auto) 11.2 % (10.0-50.0); Mean Corpuscular Hemoglobin 27.8 pg (28.0-32.0); Mean Corpuscular Volume 81.6 fL (80.0-100.0); Monocytes # (auto) 0.8 10 ^3/uL (0-1.3); Neutrophils # (auto) 9.4 10 ^3/uL (1.6-8.6); Neutrophils % (auto) 79.7 % (37.0-80.0); Platelet Count (auto) 271 10^3/uL (140-450); Red Blood Cells 3.95 10^6/uL (4.5-5.90); Red Cell Distribution Width 18.9 % (11.8-14.3); White Blood Cell 11.8 10^3/uL (4.4-10.8)
[2024-12-04 06:33] LABS: Alanine Aminotransferase 29 U/L (7-40); Albumin 4.3 g/dL (3.2-4.8); Alkaline Phosphatase 64 U/L (46-116); Anion Gap 7 (5-15); Aspartate Aminotransferase 22 U/L (13-40); BUN/Creatinine Ratio 18.3 (10.0-20.0); Blood Urea Nitrogen 19 mg/dL (9-23); Carbon Dioxide 29 mmol/L (20-31); Chloride 105 mmol/L (98-107); Magnesium 1.9 mg/dL (1.6-2.6); Potassium 3.6 mmol/L (3.5-5.1); Sodium 141 mmol/L (136-145)
[2024-12-04 06:34] LABS: Bilirubin, Total 0.5 mg/dL (0.2-1.0); Calcium 10.8 mg/dL (8.7-10.4); Glucose 108 mg/dL (74-106); Total Protein 6.5 g/dL (5.7-8.2)
--- NOTE | 2024-12-04 19:45 | DVHPN2 ---
Subjective Decreasing dyspnea Reviewed: Care Plan, H&P, Labs, Medications, Previous Orders, Radiology, Other (Consultations) Changes from previous H/P or p: No Changes Objective Vitals Vital Signs Date Time Temp Pulse Resp B/P (MAP) Pulse Ox O2 Delivery O2 Flow Rate FiO2 12/04/24 16:59 98.3 83 20 164/80 (108) 96 98.3 12/04/24 09:51 Nasal Cannula 3.0 12/04/24 09:51 32 Intake/Output Intake and Output 12/04/24 07:00 Intake Total 2190 ml Output Total 1300 ml Balance 890 ml Intake Oral 1840 ml IV Total 350 ml Output Urine Total 1300 ml # Voids 3 # Bowel Movements 2 General Appearance: Alert, Oriented X3, Cooperative, No acute distress HEENT: Atraumatic Lungs: Other (Decreased air entry bilateral with scattered wheezing and crackles) Cardiovascular: Regular rate, Normal S1, Normal S2 Abdomen: Normal bowel sounds, Soft, No tenderness Neuro: Normal speech, Cranial nerves 3-12 NL Psych/Mental Status: Mental status NL, Mood NL Medications Current Medications Medications Dose Ordered Sig/Al Route Start Time Stop Time Status Last Admin Dose Admin Aspirin 81 mg DAILY PO 11/30/24 10:00 12/04/24 09:48 81 MG Atorvastatin Calcium 20 mg HS PO 11/30/24 22:00 12/03/24 22:39 20 MG Albuterol 2.5 mg Q4HPRN PRN NEB 11/30/24 07:45 12/03/24 06:10 2.5 MG Ipratropium [place] 0.5 mg Q4HPRN PRN NEB 11/30/24 07:45 12/03/24 06:10 0.5 MG Ceftriaxone Sodium 50 ml @ 100 mls/hr DAILY@09 IV 11/30/24 09:00 12/04/24 09:46 100 MLS/HR Azithromycin 250 ml @ 125 mls/hr DAILY IV 11/30/24 10:00 12/04/24 10:34 125 MLS/HR Alprazolam 0.25 mg Q12HP PRN PO 11/30/24 07:45 12/03/24 22:39 0.25 MG Diagnostic Test (Pha) 1 strip ACHS 11/30/24 11:30 12/04/24 17:01 1 STRIP Insulin Human Regular HS SC 11/30/24 22:00 12/03/24 22:39 3 UNITS Insulin Human Regular AC SC 11/30/24 11:30 12/04/24 17:01 9 UNITS Dextrose 50 ml UD PRN IV 11/30/24 07:45 Sodium Chloride 10 ml Q8HR IV 11/30/24 14:00 12/04/24 14:00 10 ML Acetaminophen/ Hydrocodone Bitart 1 tab Q4HP PRN PO 11/30/24 07:45 12/04/24 17:00 1 TAB Ondansetron HCl 4 mg Q4HP PRN IV 11/30/24 07:45 Hold Docusate Sodium 100 mg BIDPRN PRN PO 11/30/24 07:45 Acetaminophen 650 mg Q6HP PRN PO 11/30/24 07:45 12/03/24 20:23 650 MG Nitroglycerin 0.4 mg Q5MINP PRN SL 11/30/24 09:30 Morphine Sulfate 2 mg Q30M PRN IV 11/30/24 09:30 Famotidine 20 mg DAILY PO 12/02/24 10:00 12/04/24 09:47 20 MG Prednisone 40 mg DAILY PO 12/02/24 10:00 12/04/24 09:47 40 MG Tamsulosin HCl 0.4 mg QPM PO 12/01/24 18:00 12/04/24 18:19 0.4 MG Finasteride 5 mg DAILY PO 12/02/24 10:00 12/04/24 09:47 5 MG Levothyroxine Sodium 75 mcg QAM@0600 PO 12/02/24 06:00 12/04/24 06:51 75 MCG Amlodipine Besylate 5 mg DAILY PO 12/02/24 10:00 12/04/24 09:49 5 MG Pregabalin 150 mg BID PO 12/01/24 22:00 12/04/24 10:03 150 MG Insulin Glargine 15 units HS SC 12/01/24 22:00 12/03/24 22:38 15 UNITS Losartan Potassium 25 mg DAILY PO 12/02/24 10:00 12/04/24 09:48 25 MG Hydralazine HCl 10 mg Q6HP PRN IV 12/03/24 21:15 12/04/24 13:47 10 MG Laboratory Results Laboratory Tests 12/04/24 05:45 Chemistry Test 12/04/24 05:45 Albumin 4.3 g/dL (3.2-4.8) Calcium Level 10.8 mg/dL (8.7-10.4) H Magnesium Level 1.9 mg/dL (1.6-2.6) Total Protein 6.5 g/dL (5.7-8.2) LFT Test 12/04/24 05:45 Alanine Aminotransferase (ALT) 29 U/L (7-40) Alkaline Phosphatase 64 U/L (46-116) Aspartate Amino Transferase (AST) 22 U/L (13-40) Total Bilirubin 0.5 mg/dL (0.2-1.0) Urinalysis Test 11/30/24 14:46 Urine Color Yellow (Yellow) Urine Clarity Clear (Clear) Urine pH 5.0 (5.0-9.0) Urine Specific [place] 1.021 (1.001-1.035) Urine Protein Trace (Negative) H Urine Ketones Negative (Negative) Urine Blood Negative /uL (Negative) Urine Nitrite Negative (Negative) Urine Bilirubin Negative (Negative) Urine Urobilinogen Normal mg/dL (Negative) Urine Leukocyte Esterase Negative /uL (Negative) Urine RBC 1 /hpf (0 - 3) Urine WBC 2 /hpf (0 - 3) Urine Squamous Epithelial Cells None seen /hpf (<5) Urine Bacteria None seen /hpf (None Seen) Urine Hyaline Casts Few /lpf (0 - 2) Urine Creatinine 151.60 mg/dL (30.0-125.0) H Urine Protein/Creatinine Ratio 0.16 Urine Sodium 14 mmol/L (40-220) L Urine Glucose 4+ mg/dL (Normal) H Urine Total Protein 23.8 mg/dL (1-14) H Microbiology Microbiology Date/Time Source Procedure Growth Status 11/30/24 20:25 Sputum Gram Stain - Final Complete 11/30/24 20:25 Respiratory Culture - Final Klebsiella pneumoniae Complete Labs and/or images reviewed: Labs reviewed by me, Image(s) reviewed by me Assessment/Plan Assessment/Plan Covering Dr. Appiah: #Sepsis with severe leukocytosis due to left-sided pneumonia; reviewed available cultures results; continue IV antibiotics; continue monitoring #Severe leukocytosis due to sepsis; management as above; decreasing counts; continue monitoring #Acute hypoxic respiratory failure due to COPD exacerbation secondary to left- sided pneumonia; continue oxygen therapy as needed; continue steroids; continue IV antibiotics; pulmonology is following; continue monitoring #Left-sided pneumonia; Gram-positive versus Gram-negative; reviewed imaging studies including chest CT and chest x-rays; continue IV antibiotics; continue monitoring #COPD exacerbation; not on home oxygen; details and management as above; continue monitoring #JOSELUIS on CKD stage IIIB; most likely vasomotor nephropathy in the setting of sepsis; avoid nephrotoxic agents; nephrology is following; continue monitoring #CAD status post stenting; asymptomatic; continue current medical management with aspirin and statin; telemetry; continue monitoring #Hypothyroidism; continue levothyroxine; continue monitoring #Uncontrolled diabetes mellitus type 2 with hyperglycemia hemoglobin A1c 8.3%; continue insulin sliding scale glycemia protocol and Lantus; continue monitoring #Hypertensive heart disease; continue antihypertensive medications as indicated; continue monitoring #Hyperlipidemia; continue statin; continue monitoring #BPH; controlled; continue current medical management; continue monitoring #Normocytic anemia; due to CKD; no signs/symptoms of active bleeding; continue monitoring #Right nonobstructing kidney stone; reviewed the available imaging; no active issues; continue monitoring #Mild hypokalemia; unclear etiology; to replace as indicated; continue monitoring #Diabetic neuropathy; continue pregabalin; continue monitoring Late Entry. This medical document was created using an electronic medical record system with computerized dictation system. Although this document has been carefully reviewed, there might still be some phonetic and typographical errors. These areas are purely typographical due to imperfections of the software programs, and do not reflect any compromise in the patient's medical care. Plan discussed with: Patient, Other (Nurse) My Orders Orders - JOSUE MENG MD Procedure Category Date Status Time Communication Order ORDERS 12/04/24 Transmitted 19:27 Complete Blood Count LAB 12/05/24 Verified 04:00 Basic Metabolic Panel LAB 12/05/24 Verified 04:00 Date of Service: Dec 04, 2024 Billing Provider: JOSUE MENG MD Common Visit Codes: [id number] INP/OBS CARE(HIGH) JOSUE MENG MD Dec 04, 2024 19:45
--- NOTE | 2024-12-04 23:22 | DVHPN2 ---
Progress Note - Dictate Date Seen: Dec 04, 2024 Medical Necessity Reason Pt with a Central, PICC or Fol: No Subjective Patient seen and examined at bedside. Remains on supplemental oxygen Overnight events reviewed. vital signs Vital Sign Date Time Temp Pulse Resp B/P (MAP) Pulse Ox O2 Delivery O2 Flow Rate FiO2 12/04/24 22:00 98.0 86 18 142/86 (104) 94 98.0 12/04/24 09:51 Nasal Cannula 3.0 12/04/24 09:51 32 Total Intake and Output 12/03/24 12/03/24 12/04/24 15:00 23:00 07:00 Intake Total 350 ml 1040 ml 800 ml Output Total 1300 ml Balance 350 ml 1040 ml -500 ml medications Current Medications Medications Dose Ordered Sig/Al Route Start Time Stop Time Status Last Admin Dose Admin Aspirin 81 mg DAILY PO 11/30/24 10:00 12/04/24 09:48 81 MG Atorvastatin Calcium 20 mg HS PO 11/30/24 22:00 12/04/24 21:54 20 MG Albuterol 2.5 mg Q4HPRN PRN NEB 11/30/24 07:45 12/03/24 06:10 2.5 MG Ipratropium [place] 0.5 mg Q4HPRN PRN NEB 11/30/24 07:45 12/03/24 06:10 0.5 MG Ceftriaxone Sodium 50 ml @ 100 mls/hr DAILY@09 IV 11/30/24 09:00 12/04/24 09:46 100 MLS/HR Azithromycin 250 ml @ 125 mls/hr DAILY IV 11/30/24 10:00 12/04/24 10:34 125 MLS/HR Alprazolam 0.25 mg Q12HP PRN PO 11/30/24 07:45 12/04/24 21:54 0.25 MG Diagnostic Test (Pha) 1 strip ACHS 11/30/24 11:30 12/04/24 21:54 1 STRIP Insulin Human Regular HS SC 11/30/24 22:00 12/04/24 21:54 6 UNITS Insulin Human Regular AC SC 11/30/24 11:30 12/04/24 17:01 9 UNITS Dextrose 50 ml UD PRN IV 11/30/24 07:45 Sodium Chloride 10 ml Q8HR IV 11/30/24 14:00 12/04/24 21:54 10 ML Acetaminophen/ Hydrocodone Bitart 1 tab Q4HP PRN PO 11/30/24 07:45 12/04/24 20:56 1 TAB Ondansetron HCl 4 mg Q4HP PRN IV 11/30/24 07:45 Hold Docusate Sodium 100 mg BIDPRN PRN PO 11/30/24 07:45 Acetaminophen 650 mg Q6HP PRN PO 11/30/24 07:45 12/03/24 20:23 650 MG Nitroglycerin 0.4 mg Q5MINP PRN SL 11/30/24 09:30 Morphine Sulfate 2 mg Q30M PRN IV 11/30/24 09:30 Famotidine 20 mg DAILY PO 12/02/24 10:00 12/04/24 09:47 20 MG Prednisone 40 mg DAILY PO 12/02/24 10:00 12/04/24 09:47 40 MG Tamsulosin HCl 0.4 mg QPM PO 12/01/24 18:00 12/04/24 18:19 0.4 MG Finasteride 5 mg DAILY PO 12/02/24 10:00 12/04/24 09:47 5 MG Levothyroxine Sodium 75 mcg QAM@0600 PO 12/02/24 06:00 12/04/24 06:51 75 MCG Amlodipine Besylate 5 mg DAILY PO 12/02/24 10:00 12/04/24 09:49 5 MG Pregabalin 150 mg BID PO 12/01/24 22:00 12/04/24 21:54 150 MG Insulin Glargine 15 units HS SC 12/01/24 22:00 12/04/24 21:53 15 UNITS Losartan Potassium 25 mg DAILY PO 12/02/24 10:00 12/04/24 09:48 25 MG Hydralazine HCl 10 mg Q6HP PRN IV 12/03/24 21:15 12/04/24 13:47 10 MG objective Gen.: Patient lying in bed in no apparent distress. On supplemental oxygen. Head: Normocephalic, atraumatic. Eyes: EOMI/PERRLA. Ears: Normal hearing. Normal anatomy. Neck/trachea: Trachea midline, supple. Nose: Normal external anatomy. Mouth: Moist mucous membranes. Chest: Decreased air entry bilaterally. No wheezing or rhonchi. Cardiovascular: Positive S1, positive S2. Regular rate and rhythm. Abdomen: Positive bowel sounds in all 4 quadrants. Soft, non-tender, non- distended. : Deferred. Rectal: Deferred. Skin: Warm, dry. Intact. Extremities: 2+ radial pulses bilaterally. No lower extremity edema. Neuro: Awake, alert, oriented x3. No gross motor or sensory deficits. Cranial nerves II through XII intact. Gait not assessed. laboratory and microbiology Laboratory Tests 12/04/24 05:45 Test 12/04/24 05:45 Range/Units Serum Glucose 108 H 74-106 mg/dL Assessment/Plan Impression: Acute hypoxic respiratory failure AE COPD Pneumonia, likely gram negative CAD, s/p stent Hypokalemia Events: Remains on supplemental oxygen, 1 LPM NC Taper O2 as tolerated Improved O2 requirements Patient feeling better Continue bronchodilators On prednisone p.o.. Continue antibiotics Incentive spirometry WBC improving Monitor renal function Creatinine now within normal limits. Patient is feeling better. Labs and imaging reviewed. Rest of plan as noted below. Plan: Supplemental oxygen Titrate to keep O2 sats above 92%. Continue bronchodilators. Continue antibiotics Steroids Incentive spirometry Monitor renal function. Monitor electrolytes. Supplement as necessary. Monitor ins and outs. DVT prophylaxis. Prognosis: Guarded given patient's multiple co-morbidities. Rest of plan per hospitalist and other consultants. Thank you, COLLINS Jamison, for allowing me to participate in this patient's care. Further recommendations will depend on the patient's clinical course. Please do not hesitate to contact me if you have any questions or concerns. This medical document was created using an electronic medical record system with [employer] dictation system. Although these documentations are being carefully reviewed, there may still be some phonetic and typographical changes. The errors are purely typographical, due to imperfection on the software program, and do not reflect any compromise in the patient's medical care. Dietary Evaluation Review Comments: Follow CCHO-60g diet with Renal specific 60g protein restriction with 2GNa, 3K, low phos diet Expected Outcomes/Goals: controlled DM with less uremic symptoms Plan discussed with: Patient, Other (RN, MD) MARILIN FOY MD Dec 04, 2024 23:22
[2024-12-05] VITALS (11 sets, daily range): BP systolic 125–153; BP diastolic 65–87; PULSE 67–100; RESP 17–19; TEMP 97.4–98.7; O2SAT 93–98
[2024-12-05 06:13] LABS: Basophils % (auto) 0.2 % (0.0-2.0); Eosinophils # (auto) 0.2 10 ^3/uL (0-0.8); Eosinophils % (auto) 1.2 % (0.0-7.0); Lymphocytes # (auto) 1.2 10 ^3/uL (0.4-5.4); Lymphocytes % (auto) 9.1 % (10.0-50.0); Monocytes # (auto) 0.8 10 ^3/uL (0-1.3); Neutrophils # (auto) 10.9 10 ^3/uL (1.6-8.6); Neutrophils % (auto) 83.5 % (37.0-80.0); White Blood Cell 13.1 10^3/uL (4.4-10.8)
[2024-12-05 06:14] LABS: Basophils # (auto) 0 10 ^3/uL (0-0.2); Hematocrit 31.8 % (41.0-53.0); Hemoglobin 10.5 g/dL (13.5-17.5); Mean Corpuscular Hemoglobin 27.1 pg (28.0-32.0); Mean Corpuscular Volume 82.1 fL (80.0-100.0); Platelet Count (auto) 241 10^3/uL (140-450); Red Blood Cells 3.88 10^6/uL (4.5-5.90); Red Cell Distribution Width 18.5 % (11.8-14.3)
[2024-12-05 06:22] LABS: Chloride 106 mmol/L (98-107); Potassium 3.5 mmol/L (3.5-5.1); Sodium 139 mmol/L (136-145)
[2024-12-05 06:23] LABS: Anion Gap 8 (5-15); Carbon Dioxide 25 mmol/L (20-31)
[2024-12-05 06:28] LABS: BUN/Creatinine Ratio 23.1 (10.0-20.0)
[2024-12-05 06:37] LABS: Blood Urea Nitrogen 24 mg/dL (9-23); Calcium 10.8 mg/dL (8.7-10.4); Glucose 146 mg/dL (74-106)
--- NOTE | 2024-12-05 17:26 | DVHPN2 ---
Subjective Decreasing dyspnea Reviewed: Care Plan, H&P, Labs, Medications, Previous Orders, Radiology, Other (Consultations) Changes from previous H/P or p: Changes Objective Vitals Vital Signs Date Time Temp Pulse Resp B/P (MAP) Pulse Ox O2 Delivery O2 Flow Rate FiO2 12/05/24 13:00 97.4 88 18 125/65 (85) 96 97.4 12/05/24 08:58 Nasal Cannula* 2 28 Intake/Output Intake and Output 12/05/24 07:00 Intake Total 2200 ml Output Total 2450 ml Balance -250 ml Intake Oral 1900 ml IV Total 300 ml Output Urine Total 2450 ml # Bowel Movements 1 General Appearance: Alert, Oriented X3, Cooperative, No acute distress HEENT: Atraumatic Lungs: Other (Decreased air entry bilateral with scattered wheezing and crackles) Cardiovascular: Regular rate, Normal S1, Normal S2 Abdomen: Normal bowel sounds, Soft, No tenderness Neuro: Normal speech, Cranial nerves 3-12 NL Psych/Mental Status: Mental status NL, Mood NL Medications Current Medications Medications Dose Ordered Sig/Al Route Start Time Stop Time Status Last Admin Dose Admin Aspirin 81 mg DAILY PO 11/30/24 10:00 12/05/24 10:34 81 MG Atorvastatin Calcium 20 mg HS PO 11/30/24 22:00 12/04/24 21:54 20 MG Albuterol 2.5 mg Q4HPRN PRN NEB 11/30/24 07:45 12/05/24 08:57 2.5 MG Ipratropium [place] 0.5 mg Q4HPRN PRN NEB 11/30/24 07:45 12/05/24 08:57 0.5 MG Ceftriaxone Sodium 50 ml @ 100 mls/hr DAILY@09 IV 11/30/24 09:00 12/05/24 10:32 100 MLS/HR Azithromycin 250 ml @ 125 mls/hr DAILY IV 11/30/24 10:00 12/05/24 12:02 125 MLS/HR Alprazolam 0.25 mg Q12HP PRN PO 11/30/24 07:45 12/04/24 21:54 0.25 MG Diagnostic Test (Pha) 1 strip ACHS 11/30/24 11:30 12/05/24 17:11 1 STRIP Insulin Human Regular HS SC 11/30/24 22:00 12/04/24 21:54 6 UNITS Insulin Human Regular AC SC 11/30/24 11:30 12/05/24 17:10 15 UNITS Dextrose 50 ml UD PRN IV 11/30/24 07:45 Sodium Chloride 10 ml Q8HR IV 11/30/24 14:00 12/05/24 14:00 10 ML Acetaminophen/ Hydrocodone Bitart 1 tab Q4HP PRN PO 11/30/24 07:45 12/05/24 10:36 1 TAB Ondansetron HCl 4 mg Q4HP PRN IV 11/30/24 07:45 Hold Docusate Sodium 100 mg BIDPRN PRN PO 11/30/24 07:45 Acetaminophen 650 mg Q6HP PRN PO 11/30/24 07:45 12/05/24 04:00 650 MG Nitroglycerin 0.4 mg Q5MINP PRN SL 11/30/24 09:30 Morphine Sulfate 2 mg Q30M PRN IV 11/30/24 09:30 Famotidine 20 mg DAILY PO 12/02/24 10:00 12/05/24 10:33 20 MG Prednisone 40 mg DAILY PO 12/02/24 10:00 12/05/24 10:34 40 MG Tamsulosin HCl 0.4 mg QPM PO 12/01/24 18:00 12/04/24 18:19 0.4 MG Finasteride 5 mg DAILY PO 12/02/24 10:00 12/05/24 10:36 5 MG Levothyroxine Sodium 75 mcg QAM@0600 PO 12/02/24 06:00 12/05/24 06:33 75 MCG Amlodipine Besylate 5 mg DAILY PO 12/02/24 10:00 12/05/24 10:33 5 MG Pregabalin 150 mg BID PO 12/01/24 22:00 12/05/24 10:32 150 MG Insulin Glargine 15 units HS SC 12/01/24 22:00 12/04/24 21:53 15 UNITS Losartan Potassium 25 mg DAILY PO 12/02/24 10:00 12/05/24 10:34 25 MG Hydralazine HCl 10 mg Q6HP PRN IV 12/03/24 21:15 12/05/24 00:50 10 MG Laboratory Results Laboratory Tests 12/05/24 05:29 Chemistry Test 12/05/24 05:29 Calcium Level 10.8 mg/dL (8.7-10.4) H Urinalysis Test 11/30/24 14:46 Urine Color Yellow (Yellow) Urine Clarity Clear (Clear) Urine pH 5.0 (5.0-9.0) Urine Specific [place] 1.021 (1.001-1.035) Urine Protein Trace (Negative) H Urine Ketones Negative (Negative) Urine Blood Negative /uL (Negative) Urine Nitrite Negative (Negative) Urine Bilirubin Negative (Negative) Urine Urobilinogen Normal mg/dL (Negative) Urine Leukocyte Esterase Negative /uL (Negative) Urine RBC 1 /hpf (0 - 3) Urine WBC 2 /hpf (0 - 3) Urine Squamous Epithelial Cells None seen /hpf (<5) Urine Bacteria None seen /hpf (None Seen) Urine Hyaline Casts Few /lpf (0 - 2) Urine Creatinine 151.60 mg/dL (30.0-125.0) H Urine Protein/Creatinine Ratio 0.16 Urine Sodium 14 mmol/L (40-220) L Urine Glucose 4+ mg/dL (Normal) H Urine Total Protein 23.8 mg/dL (1-14) H Microbiology Microbiology Date/Time Source Procedure Growth Status 11/30/24 20:25 Sputum Gram Stain - Final Complete 11/30/24 20:25 Respiratory Culture - Final Klebsiella pneumoniae Complete Labs and/or images reviewed: Labs reviewed by me, Image(s) reviewed by me Assessment/Plan Assessment/Plan Covering Dr. Appiah: #Sepsis with severe leukocytosis due to left-sided pneumonia; reviewed available cultures results; continue IV antibiotics; continue monitoring #Severe leukocytosis due to sepsis; management as above; WBCs trending up; continue monitoring #Acute hypoxic respiratory failure due to COPD exacerbation secondary to left- sided pneumonia; continue oxygen therapy as needed, and to wean off as tolerated; continue steroids; continue IV antibiotics; pulmonology is following; continue monitoring #Left-sided pneumonia; Gram-positive versus Gram-negative; reviewed imaging studies including chest CT and chest x-rays; continue IV antibiotics; continue monitoring #COPD exacerbation; not on home oxygen; details and management as above; continue monitoring #JOSELUIS on CKD stage IIIB; most likely vasomotor nephropathy in the setting of sepsis; avoid nephrotoxic agents; nephrology is following; continue monitoring #CAD status post stenting; asymptomatic; continue current medical management with aspirin and statin; telemetry; continue monitoring #Hypothyroidism; continue levothyroxine; continue monitoring #Uncontrolled diabetes mellitus type 2 with hyperglycemia hemoglobin A1c 8.3%; continue insulin sliding scale glycemia protocol and Lantus; continue monitoring #Hypertensive heart disease; continue antihypertensive medications as indicated; continue monitoring #Hyperlipidemia; continue statin; continue monitoring #BPH; controlled; continue current medical management; continue monitoring #Normocytic anemia; due to CKD; no signs/symptoms of active bleeding; continue monitoring #Right nonobstructing kidney stone; reviewed the available imaging; no active issues; continue monitoring #Mild hypokalemia; unclear etiology; to replace as indicated; continue monitoring #Diabetic neuropathy; continue pregabalin; continue monitoring Will monitor for leukocytosis trend before discharging patient home. 6 minute walk test showed that the patient's oxygenation saturation drops to 88% on room air after walking; to re-evaluate before discharge for the need oxygen therapy at home. Late Entry. This medical document was created using an electronic medical record system with computerized dictation system. Although this document has been carefully reviewed, there might still be some phonetic and typographical errors. These areas are purely typographical due to imperfections of the software programs, and do not reflect any compromise in the patient's medical care. Plan discussed with: Patient, Other (Nurse) My Orders Orders - JOSUE MENG MD Procedure Category Date Status Time Communication Order ORDERS 12/04/24 Transmitted 19:27 Wi 6-Min Walk Test HDVI 12/05/24 Logged 10:46 Date of Service: Dec 05, 2024 Billing Provider: JOSUE MENG MD Common Visit Codes: [id number] INP/OBS CARE(HIGH) JOSUE MENG MD Dec 05, 2024 17:26
--- NOTE | 2024-12-05 23:31 | DVHPN2 ---
Progress Note - Dictate Date Seen: Dec 05, 2024 Medical Necessity Reason Pt with a Central, PICC or Fol: No Subjective Patient seen and examined at bedside. Breathing comfortably on room air. Overnight events reviewed. vital signs Vital Sign Date Time Temp Pulse Resp B/P (MAP) Pulse Ox O2 Delivery O2 Flow Rate FiO2 12/05/24 21:00 98.7 90 19 152/81 (104) 94 98.7 12/05/24 20:00 Nasal Cannula* 4 36 Total Intake and Output 12/04/24 12/04/24 12/05/24 15:00 23:00 07:00 Intake Total 50 ml 1500 ml 650 ml Output Total 2000 ml 450 ml Balance 50 ml -500 ml 200 ml medications Current Medications Medications Dose Ordered Sig/Al Route Start Time Stop Time Status Last Admin Dose Admin Aspirin 81 mg DAILY PO 11/30/24 10:00 12/05/24 10:34 81 MG Atorvastatin Calcium 20 mg HS PO 11/30/24 22:00 12/05/24 21:39 20 MG Albuterol 2.5 mg Q4HPRN PRN NEB 11/30/24 07:45 12/05/24 08:57 2.5 MG Ipratropium [place] 0.5 mg Q4HPRN PRN NEB 11/30/24 07:45 12/05/24 08:57 0.5 MG Ceftriaxone Sodium 50 ml @ 100 mls/hr DAILY@09 IV 11/30/24 09:00 12/05/24 10:32 100 MLS/HR Azithromycin 250 ml @ 125 mls/hr DAILY IV 11/30/24 10:00 12/05/24 12:02 125 MLS/HR Alprazolam 0.25 mg Q12HP PRN PO 11/30/24 07:45 12/05/24 21:50 0.25 MG Diagnostic Test (Pha) 1 strip ACHS 11/30/24 11:30 12/05/24 21:43 1 STRIP Insulin Human Regular HS SC 11/30/24 22:00 12/05/24 21:47 3 UNITS Insulin Human Regular AC SC 11/30/24 11:30 12/05/24 17:10 15 UNITS Dextrose 50 ml UD PRN IV 11/30/24 07:45 Sodium Chloride 10 ml Q8HR IV 11/30/24 14:00 12/05/24 21:40 10 ML Acetaminophen/ Hydrocodone Bitart 1 tab Q4HP PRN PO 11/30/24 07:45 12/05/24 21:39 1 TAB Ondansetron HCl 4 mg Q4HP PRN IV 11/30/24 07:45 Hold Docusate Sodium 100 mg BIDPRN PRN PO 11/30/24 07:45 Acetaminophen 650 mg Q6HP PRN PO 11/30/24 07:45 12/05/24 04:00 650 MG Nitroglycerin 0.4 mg Q5MINP PRN SL 11/30/24 09:30 Morphine Sulfate 2 mg Q30M PRN IV 11/30/24 09:30 Famotidine 20 mg DAILY PO 12/02/24 10:00 12/05/24 10:33 20 MG Prednisone 40 mg DAILY PO 12/02/24 10:00 12/05/24 10:34 40 MG Tamsulosin HCl 0.4 mg QPM PO 12/01/24 18:00 12/05/24 18:00 0.4 MG Finasteride 5 mg DAILY PO 12/02/24 10:00 12/05/24 10:36 5 MG Levothyroxine Sodium 75 mcg QAM@0600 PO 12/02/24 06:00 12/05/24 06:33 75 MCG Amlodipine Besylate 5 mg DAILY PO 12/02/24 10:00 12/05/24 10:33 5 MG Pregabalin 150 mg BID PO 12/01/24 22:00 12/05/24 21:39 150 MG Insulin Glargine 15 units HS SC 12/01/24 22:00 12/05/24 21:50 15 UNITS Losartan Potassium 25 mg DAILY PO 12/02/24 10:00 12/05/24 10:34 25 MG Hydralazine HCl 10 mg Q6HP PRN IV 12/03/24 21:15 12/05/24 00:50 10 MG objective Gen.: Patient lying in bed in no apparent distress. On room air. Head: Normocephalic, atraumatic. Eyes: EOMI/PERRLA. Ears: Normal hearing. Normal anatomy. Neck/trachea: Trachea midline, supple. Nose: Normal external anatomy. Mouth: Moist mucous membranes. Chest: Decreased air entry bilaterally. No wheezing or rhonchi. Cardiovascular: Positive S1, positive S2. Regular rate and rhythm. Abdomen: Positive bowel sounds in all 4 quadrants. Soft, non-tender, non- distended. : Deferred. Rectal: Deferred. Skin: Warm, dry. Intact. Extremities: 2+ radial pulses bilaterally. No lower extremity edema. Neuro: Awake, alert, oriented x3. No gross motor or sensory deficits. Cranial nerves II through XII intact. Gait not assessed. laboratory and microbiology Laboratory Tests 12/05/24 05:29 Test 12/05/24 05:29 Range/Units Serum Glucose 146 H 74-106 mg/dL Assessment/Plan Impression: Acute hypoxic respiratory failure AE COPD Pneumonia, likely gram negative CAD, s/p stent Hypokalemia Events: Tapered off supplemental O2 -currently on room air Improved O2 requirements On 6-minute walk test, pt desaturated to 88% Continue bronchodilators On prednisone p.o. Continue antibiotics Incentive spirometry Monitor WBC Monitor renal function Creatinine now within normal limits. Patient is feeling better. Disposition per hospitalist. Labs and imaging reviewed. Rest of plan as noted below. Plan: Supplemental oxygen PRN Titrate to keep O2 sats above 92%. Continue bronchodilators. Continue antibiotics Steroids Incentive spirometry Monitor renal function. Monitor electrolytes. Supplement as necessary. Monitor ins and outs. DVT prophylaxis. Prognosis: Guarded given patient's multiple co-morbidities. Rest of plan per hospitalist and other consultants. Thank you, COLLINS Jamison, for allowing me to participate in this patient's care. Further recommendations will depend on the patient's clinical course. Please do not hesitate to contact me if you have any questions or concerns. This medical document was created using an electronic medical record system with [employer] dictation system. Although these documentations are being carefully reviewed, there may still be some phonetic and typographical changes. The errors are purely typographical, due to imperfection on the software program, and do not reflect any compromise in the patient's medical care. Dietary Evaluation Review Comments: Follow CCHO-60g diet with Renal specific 60g protein restriction with 2GNa, 3K, low phos diet Expected Outcomes/Goals: controlled DM with less uremic symptoms Plan discussed with: Patient, Other (KRYSTINA Forman) MARILIN FOY MD Dec 05, 2024 23:31
[2024-12-06] VITALS (9 sets, daily range): BP systolic 123–158; BP diastolic 74–92; PULSE 74–86; RESP 14–18; TEMP 97.3–98.6; O2SAT 92–98
[2024-12-06] MEDS ORDERED: METH4PAK PO (09:55)
[2024-12-06] MEDS ORDERED: LEVO500T91 PO (09:55)
--- NOTE | 2024-12-06 09:59 | DVHDS2 ---
Discharge Summary Date of Admission Nov 30, 2024 at 09:17 Date of Discharge: Dec 06, 2024 Labs/Diagnostic Data: Laboratory Results Test 12/05/24 05:29 12/04/24 05:45 12/02/24 12:21 12/02/24 04:45 White Blood Count 13.1 10^3/uL (4.4-10.8) Red Blood Count 3.88 10^6/uL (4.5-5.90) Hemoglobin 10.5 g/dL (13.5-17.5) Hematocrit 31.8 % (41.0-53.0) Mean Corpuscular Volume 82.1 fL (80.0-100.0) Mean Corpuscular Hemoglobin 27.1 pg (28.0-32.0) Mean Corpuscular Hemoglobin Concent 33.0 g/dL (32.0-36.0) Red Cell Distribution Width 18.5 % (11.8-14.3) Platelet Count 241 10^3/uL (140-450) Mean Platelet Volume 8.1 fL (6.9-10.8) Neutrophils (%) (Auto) 83.5 % (37.0-80.0) Lymphocytes (%) (Auto) 9.1 % (10.0-50.0) Monocytes (%) (Auto) 6.0 % (0.0-12.0) Eosinophils (%) (Auto) 1.2 % (0.0-7.0) Basophils (%) (Auto) 0.2 % (0.0-2.0) Neutrophils # (Auto) 10.9 10 ^3/uL (1.6-8.6) Lymphocytes # (Auto) 1.2 10 ^3/uL (0.4-5.4) Monocytes # (Auto) 0.8 10 ^3/uL (0-1.3) Eosinophils # (Auto) 0.2 10 ^3/uL (0-0.8) Basophils # (Auto) 0 10 ^3/uL (0-0.2) Nucleated Red Blood Cells 0.0 % Sodium Level 139 mmol/L (136-145) Potassium Level 3.5 mmol/L (3.5-5.1) Chloride Level 106 mmol/L (98-107) Carbon Dioxide Level 25 mmol/L (20-31) Anion Gap 8 (5-15) Blood Urea Nitrogen 24 mg/dL (9-23) Creatinine 1.04 mg/dL (0.700-1.30) Glomerular Filtration Rate Calc 75 mL/min (>90) BUN/Creatinine Ratio 23.1 (10.0-20.0) Serum Glucose 146 mg/dL (74-106) Calcium Level 10.8 mg/dL (8.7-10.4) Magnesium Level 1.9 mg/dL (1.6-2.6) Total Bilirubin 0.5 mg/dL (0.2-1.0) Aspartate Amino Transferase (AST) 22 U/L (13-40) Alanine Aminotransferase (ALT) 29 U/L (7-40) Alkaline Phosphatase 64 U/L (46-116) Total Protein 6.5 g/dL (5.7-8.2) Albumin 4.3 g/dL (3.2-4.8) POC Glucose 270 mg/dl (70-106) Hemoglobin A1c 8.3 % A1C (<5.7) Test 12/01/24 04:25 11/30/24 14:46 11/30/24 06:46 Differential Total Cells Counted 100.0 (100) Neutrophils % (Manual) 83 (37.0-80.0) Band Neutrophils % (Manual) 13 Lymphocytes % (Manual) 1 (10.0-50.0) Monocytes % (Manual) 3 (0-12) Eosinophils % (Manual) 0 (0-7) Basophils % (Manual) 0 (0.0-2.0) Metamyelocytes % (manual) 0 Myelocytes % (Manual) 0 Promyelocytes % (Manual) 0 Blast Cells % (Manual) 0 Reactive Lymphocytes 0 Platelet Estimate Adequate Urine Color Yellow (Yellow) Urine Clarity Clear (Clear) Urine pH 5.0 (5.0-9.0) Urine Specific [place] 1.021 (1.001-1.035) Urine Protein Trace (Negative) Urine Ketones Negative (Negative) Urine Blood Negative /uL (Negative) Urine Nitrite Negative (Negative) Urine Bilirubin Negative (Negative) Urine Urobilinogen Normal mg/dL (Negative) Urine Leukocyte Esterase Negative /uL (Negative) Urine RBC 1 /hpf (0 - 3) Urine WBC 2 /hpf (0 - 3) Urine Squamous Epithelial Cells None seen /hpf (<5) Urine Bacteria None seen /hpf (None Seen) Urine Hyaline Casts Few /lpf (0 - 2) Urine Creatinine 151.60 mg/dL (30.0-125.0) Urine Protein/Creatinine Ratio 0.16 Urine Sodium 14 mmol/L (40-220) Urine Glucose 4+ mg/dL (Normal) Urine Total Protein 23.8 mg/dL (1-14) Large Platelets Few Troponin I High Sensitivity 5 ng/L (</=54) Other Laboratory Tests 12/05/24 05:29 Brief Hx & Hospital Course: Final diagnoses: Acute hypoxic respiratory failure COPD exacerbation Community-acquired pneumonia Sepsis with severe leukocytosis due to pneumonia COPD Two diabetes Coronary artery disease Hypothyroidism Hypertension Hypokalemia Diabetic neuropathy Dyslipidemia JOSELUIS due to hemodynamically mediated vasomotor nephropathy , resolved 74-year-old male was admitted for upper respiratory infection and was diagnosed with pneumonia and COPD exacerbation He had acute kidney injury on admission which improved with treatment team He was given oxygen med neb treatments He is feeling much better today, no wheezing his chest is clear and he is on room air He will be discharged home on Levaquin for 7 days and Medrol Dosepak and the rest of his home medications No need for home O2 Follow up with his primary care physician as soon as possible Condition at Discharge: Stable Final Diagnosis/Problems List UTI acquired pneumonia Acute hypoxic respiratory failure COPD exacerbation Discharge Disposition: Home SNF Discharge Will this Physician continue t: No Discharge Instruct/Medications Diet: Consistent carbohydrate, Cardiac 2g Na,low cholest Activity: No Restrictions, As Tolerated Follow Up/Referral: Dr. Celso Sullivan (PCP) is soon as possible Medications: Medrol Dosepak Levaquin for 7 days Resume the home medications Discharge Statement: "Patient was advised to return to the ER or call 911 if any headaches, dizziness, shortness of breath, chest pain, abdominal pain, bleeding, fevers, or worsening of medical condition. Patient was counseled about treatment plan, medications, possible side effects, patientverbalized understanding. All questions were answered to the best of my ability. This discharge took greater then 30 minutes in planning, reviewing documentation, counseling the patient, and discussing with other team members." ASSESSMENT ASSESSMENT Assessment UTI acquired pneumonia Acute hypoxic respiratory failure COPD exacerbation Date of Service: Dec 06, 2024 Billing Provider: HALINA CHAPA MD Common Visit Codes: NOT BILLABLE HALINA CHAPA MD Dec 06, 2024 09:59
--- NOTE | 2024-12-06 23:09 | DVHPN2 ---
Progress Note - Dictate Date Seen: Dec 06, 2024 Medical Necessity Reason Pt with a Central, PICC or Fol: No Subjective Patient seen and examined at bedside. Breathing comfortably on room air. Overnight events reviewed. vital signs Vital Sign Date Time Temp Pulse Resp B/P (MAP) Pulse Ox O2 Delivery O2 Flow Rate FiO2 12/06/24 13:41 97.7 80 17 97 12/06/24 13:00 158/92 (114) 12/06/24 11:03 3.0 12/06/24 10:00 Room Air* 21 Total Intake and Output 12/05/24 12/05/24 12/06/24 15:00 23:00 07:00 Intake Total 1000 ml 600 ml Output Total 600 ml 400 ml Balance 400 ml 200 ml objective Gen.: Patient lying in bed in no apparent distress. On room air. Head: Normocephalic, atraumatic. Eyes: EOMI/PERRLA. Ears: Normal hearing. Normal anatomy. Neck/trachea: Trachea midline, supple. Nose: Normal external anatomy. Mouth: Moist mucous membranes. Chest: Decreased air entry bilaterally. No wheezing or rhonchi. Cardiovascular: Positive S1, positive S2. Regular rate and rhythm. Abdomen: Positive bowel sounds in all 4 quadrants. Soft, non-tender, non- distended. : Deferred. Rectal: Deferred. Skin: Warm, dry. Intact. Extremities: 2+ radial pulses bilaterally. No lower extremity edema. Neuro: Awake, alert, oriented x3. No gross motor or sensory deficits. Cranial nerves II through XII intact. Gait not assessed. laboratory and microbiology Laboratory Tests 12/05/24 05:29 Test 12/05/24 05:29 Range/Units Serum Glucose 146 H 74-106 mg/dL Assessment/Plan Impression: Acute hypoxic respiratory failure AE COPD Pneumonia, likely gram negative CAD, s/p stent Hypokalemia Events: Remains on room air. Improved O2 requirements Continue antibiotics - complete course Continue steroids Incentive spirometry Monitor WBC Monitor renal function Creatinine now within normal limits. Patient is feeling better. Patient is stable for discharge from the pulmonary standpoint. Disposition per hospitalist. Follow up in 2 weeks in Pulmonary Clinic. Labs and imaging reviewed. Rest of plan as noted below. Plan: Supplemental oxygen PRN Titrate to keep O2 sats above 92%. Continue bronchodilators. Continue antibiotics Steroids Incentive spirometry Monitor renal function. Monitor electrolytes. Supplement as necessary. Monitor ins and outs. DVT prophylaxis. Prognosis: Guarded given patient's multiple co-morbidities. Rest of plan per hospitalist and other consultants. Thank you, COLLINS Jamison, for allowing me to participate in this patient's care. Further recommendations will depend on the patient's clinical course. Please do not hesitate to contact me if you have any questions or concerns. This medical document was created using an electronic medical record system with [employer] dictation system. Although these documentations are being carefully reviewed, there may still be some phonetic and typographical changes. The errors are purely typographical, due to imperfection on the software program, and do not reflect any compromise in the patient's medical care. Dietary Evaluation Review Comments: Follow CCHO-60g diet with Renal specific 60g protein restriction with 2GNa, 3K, low phos diet Expected Outcomes/Goals: controlled DM with less uremic symptoms Plan discussed with: Patient, Other (KRYSTINA Chavez) MARILIN FOY MD Dec 06, 2024 23:09
== END 2024-12-06 14:30 | disposition home or self-care (01) | DRG 871 ==
LOC: ER 06:19 → EDBD 06:19 → TELE 09:17 → TELE-WESTW 09:18 → WEST WING 12-06 09:21
PROVIDERS: ADMIT Nurse Practitioner Family; ATTEND Internal Medicine Geriatric Medicine
DX: A41.50 Gram-negative sepsis, unspecified (principal); J15.69 Pneumonia due to other Gram-negative bacteria; J96.01 Acute respiratory failure with hypoxia; N17.0 Acute kidney failure with tubular necrosis; J15.9 Unspecified bacterial pneumonia; J44.1 Chronic obstructive pulmonary disease with (acute) exacerbation; J44.0 Chronic obstructive pulmonary disease with (acute) lower respiratory infection; N39.0 Urinary tract infection, site not specified; D63.1 Anemia in chronic kidney disease; E11.65 Type 2 diabetes mellitus with hyperglycemia; E11.22 Type 2 diabetes mellitus with diabetic chronic kidney disease; E11.40 Type 2 diabetes mellitus with diabetic neuropathy, unspecified; I25.10 Atherosclerotic heart disease of native coronary artery without angina pectoris; E87.6 Hypokalemia; E78.5 Hyperlipidemia, unspecified; F41.9 Anxiety disorder, unspecified; F32.A Depression, unspecified; K21.9 Gastro-esophageal reflux disease without esophagitis; N20.0 Calculus of kidney; E03.9 Hypothyroidism, unspecified; N18.32 Chronic kidney disease, stage 3b; N40.0 Benign prostatic hyperplasia without lower urinary tract symptoms; I13.10 Hypertensive heart and chronic kidney disease without heart failure, with stage 1 through stage 4 chronic kidney disease, or unspecified chronic kidney disease; Z88.8 Allergy status to other drugs, medicaments and biological substances; Z88.1 Allergy status to other antibiotic agents; Z95.5 Presence of coronary angioplasty implant and graft; Z79.82 Long term (current) use of aspirin
CPT/HCPCS: 36415; 71045; 71250; 76775; 80048; 80053; 81001; 82570; 82962; 83036; 83735; 84156; 84300; 84484; 85007; 85025; 85027; 87070; 87077; 87186; 87205; 93005; 94618; 94640; 97110; 97116; 97163; 97530; 99291; 99292; G0378; J1815; J3490

== ENCOUNTER 2025-06-13 11:07 | Inpatient (IN) | payer MEDICARE, OTHER ==
[~2025-06-13] VITALS: Ht 172.7 cm; Wt 78.8 kg
[~2025-06-13 11:07] MED LIST changes: +LEVO500T91 PO; +METH4PAK PO
--- NOTE | 2025-06-13 11:34 | ECG ---
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
[2025-06-13 11:57] LABS: Hematocrit 30.9 % (41.0-53.0); Hemoglobin 10.2 g/dL (13.5-17.5); Mean Corpuscular Hemoglobin 26.9 pg (28.0-32.0); Mean Corpuscular Volume 81.2 fL (80.0-100.0); Nucleated Red Blood Cells % 0.0 %
--- NOTE | 2025-06-13 12:02 | DVH ---
XY CHEST XRAY 1 VIEW, HISTORY: SOB COMPARISON: XY CHEST PORTABLE on DOS: 12/02/24, XY CHEST PORTABLE on DOS: 11/30/24 XY CHEST PORTABLE on DOS: 12/02/24, XY CHEST PORTABLE on DOS: 11/30/24 TECHNICAL DATA: 1 view of the chest was obtained. FINDINGS: Lines and tubes: None Cardiomediastinal silhouette: normal Pulmonary vasculature: Prominent Lung expansion: normal Lung airspace: normal Lung interstitium: normal Pleura: normal Pneumothorax: no Bones: Unremarkable Other: A spinal stimulator is seen. IMPRESSION: Pulmonary vascular congestion.
--- NOTE | 2025-06-13 12:04 | ED.PDOC ---
HPI Comments Patient is a 74-year-old male with a past medical history of hypertension, dyslipidemia, type 2 diabetes mellitus, MO s/p PCI, chronic back pain, Salazar's esophagus, hiatal hernia, anemia, hypothyroidism, sleep apnea was brought to the ER via EMS with a chief complaint of shortness of the breath. As per the EMS patient was saturating at 87% on arrival and had to be put on oxygen at 3 L which improved his saturation 95%. On arrival to the ER patient was confused and was not able to answer questions. He did not report of chest pain. Initial EKG showed ST-elevation in leads 3, ST depression in lead 1 and aVL with a right bundle branch block following which solutions specialist to was paged and he suggested the patient does not have STEMI. A better history obtained from the at bedside, she reports patient was apparently well until Friday and on Friday morning started to get confused and his oxygen saturation dropped to the ED is was given nebulizer treatments which improved the saturation into the low 90s, he had associated cough with greenish sputum and chills but no fever. Patient did not report of any burning on urination. Chief Complaint: shortness of breath Time Seen by MD: 11:16 Primary Care Provider: GA Allergies: Coded Allergies: Benazepril (Verified Allergy, Severe, SEVERE COUGHING, 08/25/16) Doxycycline (Verified Allergy, Severe, EXCESSIVE COUGH, 08/25/16) [place] (Verified Allergy, Severe, TREMORS, 08/25/16) Quetiapine (Verified Allergy, Severe, AGITATION, 08/25/16) Zolpidem (Verified Allergy, Severe, SLEEP WALKING, 08/25/16) Home Meds Active Scripts Methylprednisolone (Medrol Dosepak) 4 Mg Guillermo, 4 MG PO UD, #21 TAB UAD Prov:HALINA CHAPA MD 12/06/24 Levofloxacin Hemihydrate (LEVOFLOXACIN) 500 Mg Tab, 1 TAB PO DAILY, #7 TAB Prov:HALINA CHAPA MD 12/06/24 Reported Medications Aspirin (Aspir-81) 81 Mg Tab, 81 MG PO, TAB 07/24/21 Albuterol Sulfate (VENTOLIN MDI) 90 Mcg Ih, 90 MCG IN PRN, INH 07/24/21 Albuterol Sulfate (Ventolin) 2 Mg/5 Ml Sr, 2 MG GT, SYP 07/24/21 Azelastine Hcl (Azelastine Hcl) 0.1 % Spr, 0.1 % NA, SPRAY 07/24/21 Fluticasone Propionate (Nasal) (Flonase Allergy Relief) 50 Mcg/Act Spr, 50 MCG NA PRN, SPRAY 07/24/21 Alprazolam (Alprazolam) 0.25 Mg Tab, 0.25 MG PO QHSP PRN for ANXIETY, TAB 07/24/21 Linaclotide Base (LINZESS) 145 Mcg Cap, 145 MCG PO PRN, CAP 07/24/21 Famotidine (PEPCID TABLET) 20 Mg Tb, 20 MG PO QHSP, TAB 07/24/21 Hydrocodone-Acetaminophen (Hydrocodone/Acetaminophen 10-325 mg) 1 Tab Tab, 1 TAB PO [id number], TAB 07/24/21 Urea (Urea 20 Intensive Hydrati) 20 % Cre, 20 % EX, CRE 07/24/21 Ferrous Sulfate (FERROUS SULFATE) 325 Mg Tb, 325 MG PO DAILY, TAB 07/24/21 Tamsulosin Hcl (Tamsulosin Hcl) 0.4 Mg Cap, 0.4 MG PO DAILY, CAP 07/24/21 Omeprazole (Omeprazole Dr) 40 Mg Cap, 40 MG PO BID, CAP 07/24/21 Losartan Potassium (Losartan Potassium) 25 Mg Tab, 25 MG PO DAILY, TAB 07/24/21 Amlodipine Besylate (Amlodipine Besylate) 2.5 Mg Tab, 2.5 MG PO DAILY, TAB 07/24/21 Metformin Hydrochloride (Metformin Hcl) 1,000 Mg Tab, 1000 MG PO BID, TAB 07/24/21 Rosuvastatin Calcium (Crestor) 40 Mg Tab, 40 MG PO DAILY, TAB 07/24/21 Fenofibrate (Fenofibrate Micronized) 200 Mg Cap, 200 MG PO DAILY, CAP 07/24/21 Pregabalin (Lyrica) 150 Mg Cap, 150 MG PO BID, CAP 07/24/21 Duloxetine Hcl (Cymbalta) 20 Mg Cap, 20 MG PO QAM, #3 CAP 07/24/21 Cholecalciferol (D-1000 EXTRA STRENGTH) 1,000 Unit Tab, 1000 UNIT PO, TAB 09/06/18 Sildenafil Citrate (Viagra) 100 Mg Tab, 1 TAB PO DAILYP, #6 TAB 11 Refills 09/06/18 Finasteride (Finasteride) 5 Mg Tab, 1 TAB PO DAILY, #30 TAB 11 Refills 09/06/18 Amlodipine Besylate (NORVASC TABLET) 5 Mg Tb, 1 TAB PO DAILY, #30 TAB 5 Refills 09/06/18 Levothyroxine Sodium (SYNTHROID TABLET) 50 Mcg Tb, 75 MCG PO DAILY 09/06/18 Cyclobenzaprine Hcl (Cyclobenzaprine Hcl) 5 Mg Tab, 2 TAB PO BIDPRN PRN for FOR MUSCLE SPASM, #30 TAB 09/06/18 Donepezil Hydrochloride (DONEPEZIL HCL) 10 Mg Tab, 1 TAB PO DAILY, #90 TAB 1 Refill 09/06/18 Mode of Arrival: EMS Past Medical History PAST MEDICAL HISTORY: Anxiety, COPD, Depression, DM, GERD, HTN Surgical History: PTCA Surgical History (Other): Lumbar laminectomy, spinal cord stimulator, the, umbilical hernia Family History Family History: Unknown Social History Smoker: Non-Smoker Alcohol: Denies ETOH Use Drugs: Denies Drug Use Lives In: Home Constitutional: reports: weakness EENTM: denies: blurred vision, double vision, ear bleeding, ear discharge, ear drainage, ear pain, ear ringing, eye pain, eye redness, hearing loss, mouth pa in, mouth swelling, nasal discharge, nose bleeding, nose congestion, nose pain, photophobia, tearing, throat pain, throat swelling, voice changes, others Respiratory: reports: cough, orthopnea, SOB at rest Cardiovascular: reports: others (Patient is confused) Gastrointestinal: denies: abdomen distended, abdominal pain, blood streaked bowels, constipated, diarrhea, dysphagia, difficulty swallowing, hematemesis, melena, nausea, poor appetite, poor fluid intake, rectal bleeding, rectal pain, vomiting, others Genitourinary: denies: burning, dysuria, flank pain, frequency, hematuria, incontinence, penile discharge, penile sore, pain, testicle pain, testicle swelling, urgency, others Neurological: reports: others (Confused) Musculoskeletal: reports: back pain Integumetry: denies: bruises, change in color, change in hair/nails, dryness, laceration, lesions, lumps, rash, wounds, others Allergic/Immunocompromised: denies: Difficulty Healing, Frequent Infections, Hives, Itching, others Hematologic/Lymphatic: denies: anemia, blood clots, easy bleeding, easy bruising, swollen glands, others Endocrine: denies: excessive hunger, excessive sweating, excessive thirst, excessive urination, flushing, intolerance to cold, intolerance to heat, unexplained weight gain, unexplained weight loss, others Psychiatric: denies: anxiety, bipolar disorder, depression, hopeless, panic disorder, schizophrenia, sleepless, suicidal, others Physical Exam General Appearance: Mild Distress HEENT: Normal ENT Inspection, Pharynx Normal, TMs Normal Neck: Full Range of Motion, Non-Tender, Normal, Normal Inspection Respiratory: Chest Non-Tender, Crackles, Inspiration, No Accessory Muscle Use Cardiovascular: No Edema, No JVD, No Murmur, No Gallop, Normal Peripheral Pulses, Regular Rate/Rhythm Breast Exam: Deferred Gastrointestinal: No Organomegaly, Non Tender, No Pulsatile Mass, Normal Bowel Sounds, Soft Genitalia: Deferred Pelvic: Deferred Rectal: Deferred Extremities: No calf tenderness, Normal capillary refill, Normal inspection, Normal range of motion, Non-tender, No pedal edema Neurologic: wig sales consultant II-XII nml as Tested, Disoriented, No Motor Deficits, No Sensory Deficits, Other (Confused and not able to answer questions correctly) Cerebellar Function: NOT DONE Reflexes: NOT DONE Skin: Dry, Normal Color, Warm Peripheral Pulses: 2+ carotid (R), 2+ carotid (L), 2+ dorsalis pedis (R), 2+ dorsalis pedis (L), 2+ Radial (R), 2+ Radial (L) Lymphatic: No Adenopathy EKG EKG : Pulse Rate (adult): 103 [place]: Normal Cardiac Rhythm: NSR Block: RBBB Hypertrophy: None ST: Nonsp (ST-elevation in lead 3, ST depression in 1 and aVL) Was a procedure done? Was a procedure done?: No CP Differential Dx Differential Diagnosis: Angina, Heart Failure Differential Diagnosis: Chest Wall Pain, Pneumonia X-Ray, Labs, Meds, VS Vital Signs Date Time Temp Pulse Resp B/P (MAP) Pulse Ox O2 Delivery O2 Flow Rate FiO2 06/13/25 14:09 14 98 Nasal Cannula* 2 28 06/13/25 13:27 97 149/76 (100) 06/13/25 12:23 102 06/13/25 12:05 94 Nasal Cannula* 2 28 06/13/25 12:04 103 06/13/25 12:03 Nasal Cannula* 2 28 06/13/25 12:02 99.2 102 19 173/82 (112) 94 99.2 06/13/25 12:00 102 06/13/25 11:29 99.8 102 22 184/66 (105) 97 99.8 06/13/25 11:09 103 Lab Test 06/13/25 15:00 06/13/25 13:07 06/13/25 12:52 06/13/25 11:44 Range/Units Troponin I High Sensitivity Pending 10 5 </=54 ng/L Lactic Acid Level 1.3 0.4-2.0 mmol/L Urine Color Light-yellow Yellow Urine Clarity Turbid H Clear Urine pH 6.5 5.0-9.0 Urine Specific Serena 1.013 1.001-1.035 Urine Protein Trace H Negative Urine Ketones Negative Negative Urine Blood Negative Negative /uL Urine Nitrite Negative Negative Urine Bilirubin Negative Negative Urine Urobilinogen Normal Negative mg/dL Urine Leukocyte Esterase 3+ Negative /uL Urine RBC 5 0 - 3 /hpf Urine Microscopic WBC 46 H 0-3 /HPF Urine Squamous Epithelial Cells None seen <5 /hpf Urine Bacteria Few H None Seen /hpf Urine Glucose Normal Normal mg/dL White Blood Count 11.8 H 4.4-10.8 10^3/uL Red Blood Count 3.81 L 4.5-5.90 10^6/uL Hemoglobin 10.2 L 13.5-17.5 g/dL Hematocrit 30.9 L 41.0-53.0 % Mean Corpuscular Volume 81.2 80.0-100.0 fL Mean Corpuscular Hemoglobin 26.9 L 28.0-32.0 pg Mean Corpuscular Hemoglobin Concent 33.1 32.0-36.0 g/dL Red Cell Distribution Width 17.9 H 11.8-14.3 % Platelet Count 246 140-450 10^3/uL Mean Platelet Volume 8.2 6.9-10.8 fL Neutrophils (%) (Auto) 86.1 H 37.0-80.0 % Lymphocytes (%) (Auto) 3.4 L 10.0-50.0 % Monocytes (%) (Auto) 8.5 0.0-12.0 % Eosinophils (%) (Auto) 1.7 0.0-7.0 % Basophils (%) (Auto) 0.3 0.0-2.0 % Neutrophils # (Auto) 10.1 H 1.6-8.6 10 ^3/uL Lymphocytes # (Auto) 0.4 0.4-5.4 10 ^3/uL Monocytes # (Auto) 1.0 0-1.3 10 ^3/uL Eosinophils # (Auto) 0.2 0-0.8 10 ^3/uL Basophils # (Auto) 0 0-0.2 10 ^3/uL Nucleated Red Blood Cells 0.0 % Sodium Level 137 136-145 mmol/L Potassium Level 3.6 3.5-5.1 mmol/L Chloride Level 100 98-107 mmol/L Carbon Dioxide Level 29 20-31 mmol/L Anion Gap 8 5-15 Blood Urea Nitrogen 17 9-23 mg/dL Creatinine 1.81 H 0.700-1.30 mg/dL Glomerular Filtration Rate Calc 39 >90 mL/min BUN/Creatinine Ratio 9.4 L 10.0-20.0 Serum Glucose 177 H 74-106 mg/dL Calcium Level 10.4 8.7-10.4 mg/dL Test 06/13/25 11:40 Range/Units Urine Opiates Screen Pos NEGATIVE Urine Fentanyl Screen Neg NEGATIVE Urine Barbiturates Screen Neg NEGATIVE Urine Phencyclidine Screen Neg NEGATIVE Urine Amphetamines Screen Neg NEGATIVE Urine Benzodiazepines Screen Neg NEGATIVE Urine Cocaine Screen Neg NEGATIVE Urine Cannabinoids Screen Neg NEGATIVE Current Medications Medications (Trade) Dose Ordered Sig/Al Route Start Time Stop Time Status Last Admin Aspirin 325 mg ONCE ONCE PO 06/13/25 11:30 06/13/25 11:34 DC 06/13/25 11:39 Ceftriaxone Sodium 50 ml @ 100 mls/hr ONCE ONCE IV 06/13/25 13:30 06/13/25 14:20 DC 06/13/25 14:22 Azithromycin 250 ml @ 125 mls/hr ONCE ONCE IV 06/13/25 13:30 06/13/25 15:29 06/13/25 14:35 Albuterol (Ventolin Medneb) 2.5 mg ONCE ONCE NEB 06/13/25 13:45 06/13/25 13:47 DC 06/13/25 14:09 Patient is a 74-year-old male was brought to the ER via EMS with a chief complaint of confusion and shortness of breath. Patient has a acute onset confusion since yesterday, cough with greenish phlegm, chills but no fever. Chest x-ray showed pulmonary vascular congestion, infectious etiology could not be ruled out , versus showed elevated WBC count and leukocyte esterase suggestive of infection. Head CT was done which showed no acute intracranial abnormality. Patient will be admitted for further inpatient care given his altered mental status, oxygen requirement in treatment for possible pneumonia and UTI. Plan of care was explained to patient's Bisi and she agrees. Time of 1ST Reevaluation: 14:52 Reevaluation 1ST: Improved Patient Education/Counseling: Diagnosis, Treatment Family Education/Counseling: Diagnosis, Treatment, Prognosis SEPSIS Sepsis Screen Date sepsis recognized/suspect: Jun 13, 2025 Time Sepsis recognized/suspect: 1109 Recent Procedure: No On Antibiotic Therapy: No Respiratory Rate >20: No Heart Rate >90: Yes Temp<36 C (96.8 F) or >38.3 C: No SBP <90 or MAP <65 mmHG: No New Acute Mental Status Change: Yes Is the patient on CPAP, BIPAP,: No Physician Orders Troponin-I Hs (06/13/25 14:28) Chest Xray 1 View (06/13/25 11:28) Head Without Contrast (06/13/25 12:14) Heplock Iv (06/13/25 ) Azithromycin 500mg/ 250ml (Zithromax 50 (06/13/25 13:30) Covid19 Antigen Faiza (06/13/25 ) Rapid Influenza A&B (06/13/25 13:24) Mrsa Screen (06/13/25 13:24) Respiratory Culture W/ Gs (06/13/25 14:12) Blood Culture (06/13/25 14:12) Urine Bacterial Culture (06/13/25 14:12) Vital Signs Date Time Temp Pulse Resp B/P (MAP) Pulse Ox O2 Delivery O2 Flow Rate FiO2 06/13/25 14:09 14 98 Nasal Cannula* 2 28 06/13/25 13:27 97 149/76 (100) 06/13/25 12:23 102 06/13/25 12:05 94 Nasal Cannula* 2 28 06/13/25 12:04 103 06/13/25 12:03 Nasal Cannula* 2 28 06/13/25 12:02 99.2 102 19 173/82 (112) 94 99.2 06/13/25 12:00 102 06/13/25 11:29 99.8 102 22 184/66 (105) 97 99.8 06/13/25 11:09 103 Laboratory Tests Test 06/13/25 11:44 06/13/25 13:07 White Blood Count 11.8 10^3/uL (4.4-10.8) H Lactic Acid Level 1.3 mmol/L (0.4-2.0) Medications Medications Dose Ordered Sig/Al Route Start Time Stop Time Status Last Admin Dose Admin Acetylcysteine 800 mg STK-MED ONCE .ROUTE 06/13/25 14:05 06/13/25 14:03 DC 06/13/25 14:10 Albuterol 2.5 mg ONCE ONCE NEB 06/13/25 13:45 06/13/25 13:47 DC 06/13/25 14:09 Aspirin 325 mg ONCE ONCE PO 06/13/25 11:30 06/13/25 11:34 DC 06/13/25 11:39 Azithromycin 250 ml @ 125 mls/hr ONCE ONCE IV 06/13/25 13:30 06/13/25 15:29 06/13/25 14:35 Ceftriaxone Sodium 50 ml @ 100 mls/hr ONCE ONCE IV 06/13/25 13:30 06/13/25 14:20 DC 06/13/25 14:22 Ipratropium [place] 0.5 mg STK-MED ONCE .ROUTE 06/13/25 14:04 06/13/25 14:02 DC 06/13/25 14:10 Departure 1 Departure Time of Disposition: 15:30 Impression: Primary Impression: Acute respiratory failure Additional Impressions: Pneumonia Pulmonary vascular congestion UTI (urinary tract infection) Chest pain Disposition: 09 ADMITTED INPATIENT Condition: Stable Critical Care Note Critical Care Time?: No Stability Stability form required: No Heart Score Heart Score: Heart Score Response (Comments) Value History Highly Suspicious [address]-Deviation 2 Age >65 2 Risk Factors >3 or Hx ASHD 2 Troponin Normal limit 0 Total 8 KEYONA MAY RESIDENT Jun 13, 2025 12:04
[2025-06-13 12:12] LABS: Chloride 100 mmol/L (98-107); Potassium 3.6 mmol/L (3.5-5.1); Sodium 137 mmol/L (136-145)
[2025-06-13 12:13] LABS: Anion Gap 8 (5-15); Carbon Dioxide 29 mmol/L (20-31)
[2025-06-13 12:14] LABS: Calcium 10.4 mg/dL (8.7-10.4)
[2025-06-13 12:18] LABS: BUN/Creatinine Ratio 9.4 (10.0-20.0); Blood Urea Nitrogen 17 mg/dL (9-23)
[2025-06-13 12:19] LABS: Glucose 177 mg/dL (74-106)
--- NOTE | 2025-06-13 12:25 | ECG ---
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
[2025-06-13 12:56] LABS: Amphetamine Screen, Urine Neg (NEGATIVE); Opiate Scree,Urine Pos (NEGATIVE); Phencyclidine Screen, Urine Neg (NEGATIVE)
[2025-06-13 12:58] LABS: Barbiturate Scree,Urine Neg (NEGATIVE); Benzodiazephine Screen, Urine Neg (NEGATIVE); Cannabinoid Screen, Urine Neg (NEGATIVE); Cocaine Screen, Urine Neg (NEGATIVE)
[2025-06-13 13:03] LABS: Urine Protein, UAD TRACE (Negative)
[2025-06-13] MEDS ORDERED: LEVALBUTEROL HCL 1.25 MG/3 ML NEB NEB ONE (13:30)
[2025-06-13] MEDS: ALBUTEROL SULF 2.5 MG/0.5ML(0.5%) NEB SOLN NEB ONE (14:09)
[2025-06-13] MEDS: ACETYLCYSTEINE 20%(200MG/ML) SOL 4ML ONE (14:10)
[2025-06-13] MEDS: IPRATROPIUM BROM 0.5 MG/2.5ML INH SOL ONE (14:10)
--- NOTE | 2025-06-13 14:10 | DVH ---
EXAM: CT HEAD WITHOUT CONTRAST INDICATION: ALOC, left weakness TECHNIQUE: CT of the head without intravenous contrast. Radiation Dose : 1. Head: CT Dose: CTDI volume is 64.38 mGy. Dose-length product is 1268.55 mGy*cm The dose indicators for CT are the volume Computed Tomography (CT) Dose Index (CTDIvol) and the Dose Length Product (DLP), and are measured in units of mGy and mGy-cm, respectively. These indicators are not patient dose, but values generated from the CT scanner acquisition factors. The report includes radiation exposure data for exposures received during this examination. COMPARISON: None FINDINGS: There is no evidence of acute intracranial hemorrhage, extra-axial collection, mass effect, midline s hift, herniation or hydrocephalus. The ventricles, sulci and cisterns are age appropriate. The pickens-white differentiation is intact. Patchy periventricular and subcortical white matter hypoattenuation is nonspecific but may be related to small vessel ischemic disease. The visualized paranasal sinuses and mastoid air cells are clear. The surrounding soft tissues and osseous structures are unremarkable. IMPRESSION: No acute intracranial abnormality. Radiation optimization: All CT scans at this facility use at least one of these dose optimization robert hniques: automated exposure control mA and/or kV adjustment per patient size (includes targeted exam s where dose is matched to clinical indication) or iterative reconstruction.
[2025-06-13] MEDS: cefTRIAXone 1GM/50ML D5W 50 ML IV ONE (14:22)
[2025-06-13] MEDS: AZITHROMYCIN 500MG/ 250ML 250 ML IV ONE (14:35)
[2025-06-13] MEDS ORDERED: ALBUTEROL SULF 2.5 MG/0.5ML(0.5%) NEB SOLN NEB PRN (16:00)
[2025-06-13] MEDS ORDERED: MORPHINE SULFATE INJ 2 MG/ml SYRG IV PRN (16:00)
[2025-06-13] MEDS ORDERED: DEXTROSE (50%) 50ML SYRG IV PRN (16:00)
[2025-06-13] MEDS ORDERED: ONDANSETRON HCL 4 MG/2 ML VIAL IV PRN (16:00)
[2025-06-13] MEDS ORDERED: NITROGLYCERIN 0.4 MG SL TAB SL PRN (16:00)
[2025-06-13] MEDS ORDERED: ACETAMINOPHEN 325 MG TAB PO PRN ×2 (16:00)
--- NOTE | 2025-06-13 16:08 | DVHHP2 ---
History of Present Illness Reason for Visit: Acute chest pain History of Present Illness The patient is a 74 year old male with past medical history of anxiety, COPD, depression, GERD, DM, and hypertension who presented to [facility] with complaint of shortness of breaths. Patient reports symptoms progressively get worse with chest pain, orthopnea, SOB at rest, increased work of breathing, desaturating at 87% on room air, getting worse that prompted this visit. Patient was seen and evaluated in the ED confused and was placed on oxygen 3 L/min via nasal cannula O2 saturation improved to 95%, temperature 99.2 F, pulse 96, blood pressure 149/76, laboratory data shows WBC 11.8, hemoglobin 10.2, hematocrit 30.9, platelets 246, sodium 137, potassium 3.6, BUN 17, creatinine 1.81, glucose 177, calcium 10.4, troponin 11. Initial EKG showed ST-elevation in leads 3, ST depression in lead 1 and aVL with a right bundle branch block following which civil engineering professional to was paged and he suggested the patient does not have STEMI. Chest x-ray revealing pulmonary vascular congestion, urinalysis positive for urinary tract infection. Patient was started on IV antibiotic regimen Rocephin, please see medication orders section in the computer. On my assessment, patient denied chest pain, no headache, no dizziness, currently on oxygen, no diaphoresis, no diarrhea, no nausea, no vomiting, no fever, no chills. Patient was admitted for further evaluation and medical management. Past Medical History Anxiety, COPD, Depression, DM, GERD, HTN Past Surgical History PTCA, Lumbar laminectomy, spinal cord stimulator, umbilical hernia surgery Family History Reviewed, noncontributory to the management of this case. Past Social History The patient lives at home, denies smoking, alcohol or illicit drugs abuse. Review of Systems Constitutional: Yes: Weakness; No: Fever, Chills, Sweats, Malaise, Other Eyes: No: Pain, Vision change, Conjunctivae inflammation, Eyelid inflammation, Other, Redness ENT: No: Ear pain, Ear discharge, Nose pain, Nose discharge, Nose congestion, Mouth pain, Mouth swelling, Throat pain, Throat swelling, Other Respiratory: Cough (Orthopnea), Shortness of breath, Other (SOB at rest); No: Dry, SOB with excertion, Wheezing, Hemoptysis, Pleuritic Pain, Sputum, Wheezing Cardiovascular: No: Chest Pain, Palpitations, Orthopnea, Paroxysmal Noc. Dyspnea, Edema, Lt Headedness, Other Gastrointestinal: No: Nausea, Vomiting, Abdominal Pain, Diarrhea, Constipation, Melena, Hematochezia, Other Genitourinary: No Dysuria, No Frequency, No Incontinence, No Hematuria, No Retention, No Other Musculoskeletal: back pain; No: other, neck pain, shoulder pain, arm pain, hand pain, leg pain, foot pain Skin: No: Rash, Lesions, Jaundice, Bruising, Other Neurological: No: Weakness, Numbness, Incoordination, Change in speech, Confusion, Seizures, Other Allergies: Coded Allergies: Benazepril (Verified Allergy, Severe, SEVERE COUGHING, 08/25/16) Doxycycline (Verified Allergy, Severe, EXCESSIVE COUGH, 08/25/16) [place] (Verified Allergy, Severe, TREMORS, 08/25/16) Quetiapine (Verified Allergy, Severe, AGITATION, 08/25/16) Zolpidem (Verified Allergy, Severe, SLEEP WALKING, 08/25/16) Medications Current Medications Medications Dose Ordered Sig/Al Route Start Time Stop Time Status Last Admin Dose Admin Acetaminophen 650 mg Q6HP PRN PO 06/13/25 16:00 UNV Nitroglycerin 0.4 mg Q5MINP PRN SL 06/13/25 16:00 UNV Morphine Sulfate 2 mg Q30M PRN IV 06/13/25 16:00 UNV Exam Vital Signs Vital Signs Date Time Temp Pulse Resp B/P (MAP) Pulse Ox O2 Delivery O2 Flow Rate FiO2 06/13/25 14:09 14 98 Nasal Cannula* 2 28 06/13/25 13:27 97 149/76 (100) 06/13/25 12:02 99.2 99.2 General Appearance: Alert, Oriented X3, Cooperative, No acute distress HEENT: Atraumatic, PERRLA, EOMI, Mucous membr. moist/pink Respiratory: Normal air movement Cardiovascular: Regular rate, Normal S1, Normal S2, No murmurs Abdominal: Normal bowel sounds, Soft, No tenderness, No hepatospenomegaly, No masses Extremities: No clubbing, No cyanosis, No edema, Normal pulses, No tender ness/swelling Skin: No rashes, No significant lesion Neuro: Normal speech, Normal tone, Sensation intact, Cranial nerves 3-12 NL, Reflexes 2+, Other (Generalized weakness) Psych/Mental Status: Mental status NL, Mood NL Labs/Xrays Labs Test 06/13/25 15:00 06/13/25 13:07 06/13/25 12:52 06/13/25 11:44 Range/Units Troponin I High Sensitivity 11 </=54 ng/L Lactic Acid Level 1.3 0.4-2.0 mmol/L Urine Color Light-yellow Yellow Urine Clarity Turbid H Clear Urine pH 6.5 5.0-9.0 Urine Specific [place] 1.013 1.001-1.035 Urine Protein Trace H Negative Urine Ketones Negative Negative Urine Blood Negative Negative /uL Urine Nitrite Negative Negative Urine Bilirubin Negative Negative Urine Urobilinogen Normal Negative mg/dL Urine Leukocyte Esterase 3+ Negative /uL Urine RBC 5 0 - 3 /hpf Urine Microscopic WBC 46 H 0-3 /HPF Urine Squamous Epithelial Cells None seen <5 /hpf Urine Bacteria Few H None Seen /hpf Urine Glucose Normal Normal mg/dL White Blood Count 11.8 H 4.4-10.8 10^3/uL Red Blood Count 3.81 L 4.5-5.90 10^6/uL Hemoglobin 10.2 L 13.5-17.5 g/dL Hematocrit 30.9 L 41.0-53.0 % Mean Corpuscular Volume 81.2 80.0-100.0 fL Mean Corpuscular Hemoglobin 26.9 L 28.0-32.0 pg Mean Corpuscular Hemoglobin Concent 33.1 32.0-36.0 g/dL Red Cell Distribution Width 17.9 H 11.8-14.3 % Platelet Count 246 140-450 10^3/uL Mean Platelet Volume 8.2 6.9-10.8 fL Neutrophils (%) (Auto) 86.1 H 37.0-80.0 % Lymphocytes (%) (Auto) 3.4 L 10.0-50.0 % Monocytes (%) (Auto) 8.5 0.0-12.0 % Eosinophils (%) (Auto) 1.7 0.0-7.0 % Basophils (%) (Auto) 0.3 0.0-2.0 % Neutrophils # (Auto) 10.1 H 1.6-8.6 10 ^3/uL Lymphocytes # (Auto) 0.4 0.4-5.4 10 ^3/uL Monocytes # (Auto) 1.0 0-1.3 10 ^3/uL Eosinophils # (Auto) 0.2 0-0.8 10 ^3/uL Basophils # (Auto) 0 0-0.2 10 ^3/uL Nucleated Red Blood Cells 0.0 % Sodium Level 137 136-145 mmol/L Potassium Level 3.6 3.5-5.1 mmol/L Chloride Level 100 98-107 mmol/L Carbon Dioxide Level 29 20-31 mmol/L Anion Gap 8 5-15 Blood Urea Nitrogen 17 9-23 mg/dL Creatinine 1.81 H 0.700-1.30 mg/dL Glomerular Filtration Rate Calc 39 >90 mL/min BUN/Creatinine Ratio 9.4 L 10.0-20.0 Serum Glucose 177 H 74-106 mg/dL Calcium Level 10.4 8.7-10.4 mg/dL Test 06/13/25 11:40 Range/Units Urine Opiates Screen Pos NEGATIVE Urine Fentanyl Screen Neg NEGATIVE Urine Barbiturates Screen Neg NEGATIVE Urine Phencyclidine Screen Neg NEGATIVE Urine Amphetamines Screen Neg NEGATIVE Urine Benzodiazepines Screen Neg NEGATIVE Urine Cocaine Screen Neg NEGATIVE Urine Cannabinoids Screen Neg NEGATIVE PATIENT: OLIVIA REDMOND ACCT: [id number] UNIT: [id number] : 1950 LOC: ER ROOM / BED: / AGE / SEX: 74 / M ADM STATUS: REG ER SERVICE 1214 ORDERING PHYSICIAN: KEYONA MAY RESIDENT PROCEDURE(s): HWOCT - HEAD WITHOUT CONTRAST REASON: ALOC, left weakness ORDER NUMBER(s): [id number], ACCESSION NUMBER(s): [id number] EXAM: CT HEAD WITHOUT CONTRAST INDICATION: ALOC, left weakness TECHNIQUE: CT of the head without intravenous contrast. Radiation Dose: 1. Head: CT Dose: CTDI volume is 64.38 mGy. Dose-length product is 1268.55 mGy*cm The dose indicators for CT are the volume Computed Tomography (CT) Dose Index (CTDIvol) and the Dose Length Product (DLP), and are measured in units of mGy and mGy-cm, respectively. These indicators are not patient dose, but values generated from the CT scanner acquisition factors. The report includes radiation exposure data for exposures received during this examination. COMPARISON: None FINDINGS: There is no evidence of acute intracranial hemorrhage, extra-axial collection, mass effect, midline shift, herniation or hydrocephalus. The ventricles, sulci and cisterns are age appropriate. The pickens-white differentiation is intact. Patchy periventricular and subcortical white matter hypoattenuation is nonspecific but may be related to small vessel ischemic disease. The visualized paranasal sinuses and mastoid air cells are clear. The surrounding soft tissues and osseous structures are unremarkable. IMPRESSION: No acute intracranial abnormality. ORDERING PHYSICIAN: KEYONA MAY RESIDENT PROCEDURE(s): CXR1 - CHEST XRAY 1 VIEW REASON: SOB ORDER NUMBER(s): [id number], ACCESSION NUMBER(s): [id number] XY CHEST XRAY 1 VIEW, HISTORY: SOB COMPARISON: XY CHEST PORTABLE on DOS: 12/02/24, XY CHEST PORTABLE on DOS: 11/30/24 XY CHEST PORTABLE on DOS: 12/02/24, XY CHEST PORTABLE on DOS: 11/30/24 TECHNICAL DATA: 1 view of the chest was obtained. FINDINGS: Lines and tubes: None Cardiomediastinal silhouette: normal Pulmonary vasculature: Prominent Lung expansion: normal Lung airspace: normal Lung interstitium: normal Pleura: normal Pneumothorax: no Bones: Unremarkable Other: A spinal stimulator is seen. IMPRESSION: Pulmonary vascular congestion. SEPSIS Sepsis Screen Date sepsis recognized/suspect: Jun 13, 2025 Time Sepsis recognized/suspect: 1109 Recent Procedure: No On Antibiotic Therapy: No Respiratory Rate >20: No Heart Rate >90: Yes Temp<36 C (96.8 F) or >38.3 C: No SBP <90 or MAP <65 mmHG: No New Acute Mental Status Change: Yes Is the patient on CPAP, BIPAP,: No Physician Orders Chest Xray 1 View (06/13/25 11:28) Head Without Contrast (06/13/25 12:14) Heplock Iv (06/13/25 ) Covid19 Antigen [place] (06/13/25 ) Rapid Influenza A&B (06/13/25 13:24) Mrsa Screen (06/13/25 13:24) Respiratory Culture W/ Gs (06/13/25 14:12) Blood Culture (06/13/25 14:12) Urine Bacterial Culture (06/13/25 14:12) Sodium Chloride 0.9% (06/13/25 16:00) Acetaminophen Tablet (Tylenol Tablet) (06/13/25 16:00) Admit (06/13/25 15:53) Allergies (06/13/25 15:53) Code Status (06/13/25 15:53) Cardiac Diet-2gna,Lofat,Lochol (06/13/25 Dinner) Condition: Serious (06/13/25 15:53) Nitroglycerin Sublingual (Ntrostat Subli (06/13/25 16:00) Morphine Sulfate Injection (06/13/25 16:00) Stat Ekg For Chest Pain (06/13/25 15:53) Notify Of Changes From Base (06/13/25 15:53) Blowing [place] For 24 Hours (06/13/25 15:53) Emergency Dysrhythmia Protocol (06/13/25 15:53) Rhythm Strips Once Every Shift (06/13/25 15:53) Oxygen By Nasal Cannula (06/13/25 15:53) Vital Signs Date Time Temp Pulse Resp B/P (MAP) Pulse Ox O2 Delivery O2 Flow Rate FiO2 06/13/25 14:09 14 98 Nasal Cannula* 2 28 06/13/25 13:27 97 149/76 (100) 06/13/25 12:23 102 06/13/25 12:05 94 Nasal Cannula* 2 28 06/13/25 12:04 103 06/13/25 12:03 Nasal Cannula* 2 28 06/13/25 12:02 99.2 102 19 173/82 (112) 94 99.2 06/13/25 12:00 102 06/13/25 11:29 99.8 102 22 184/66 (105) 97 99.8 06/13/25 11:09 103 Laboratory Tests Test 06/13/25 11:44 06/13/25 13:07 White Blood Count 11.8 10^3/uL (4.4-10.8) H Lactic Acid Level 1.3 mmol/L (0.4-2.0) Medications Medications Dose Ordered Sig/Al Route Start Time Stop Time Status Last Admin Dose Admin Acetylcysteine 800 mg STK-MED ONCE .ROUTE 06/13/25 14:05 06/13/25 14:03 DC 06/13/25 14:10 800 MG Albuterol 2.5 mg ONCE ONCE NEB 06/13/25 13:45 06/13/25 13:47 DC 06/13/25 14:09 2.5 MG Aspirin 325 mg ONCE ONCE PO 06/13/25 11:30 06/13/25 11:34 DC 06/13/25 11:39 325 MG Azithromycin 250 ml @ 125 mls/hr ONCE ONCE IV 06/13/25 13:30 06/13/25 15:29 DC 06/13/25 14:35 125 MLS/HR Ceftriaxone Sodium 50 ml @ 100 mls/hr ONCE ONCE IV 06/13/25 13:30 06/13/25 14:20 DC 06/13/25 14:22 100 MLS/HR Ipratropium [place] 0.5 mg STK-MED ONCE .ROUTE 06/13/25 14:04 06/13/25 14:02 DC 06/13/25 14:10 0.5 MG Assessment/Plan Assessment/Plan Acute respiratory failure Acute chest pain Pneumonia, unspecified organism Pulmonary vascular congestion UTI (urinary tract infection) Generalized weakness Leukocytosis, unspecified Plan 1. Admit to telemetry unit 2. Breathing treatment 3. Pain control management 4. IV antibiotic management 5. Management of fluids and electrolytes 6. Consultation for hospitalist 7. Diagnostic test chest x-ray 8. DVT prophylaxis-on aspirin 9. Repeat labs CBC, CMP in a.m. 10. Home medication reviewed and reconciled 11. Continue with current medical management 12. Treatment plan discussed with patient and RN. Patient verbalized understanding. Plan discussed with: Patient, Other (RN) My Orders Orders - MERCEDES MILLER DNP Procedure Category Date Status Time Admit ADMIT 06/13/25 Transmitted 15:53 Allergies [facility] 06/13/25 In Process 15:53 Code Status CODE 06/13/25 Transmitted 15:53 Cardiac DIET 06/13/25 Transmitted Diet-2gna,Lofat,Lochol Dinner Condition: Serious DENITA 06/13/25 In Process 15:53 Nitroglycerin [facility] 06/13/25 Logged Sublingual (Ntrostat 16:00 Morphine Sulfate PHA 06/13/25 Logged Injection 16:00 Stat Ekg For Chest [facility]ITA 06/13/25 In Process Pain 15:53 Notify Of Changes [facility] 06/13/25 In Process From Base 15:53 Blowing [place] For [facility] 06/13/25 In Process 24 Hours 15:53 Emergency Dysrhythmia [facility] 06/13/25 In Process Protocol 15:53 Rhythm Strips Once [facility] 06/13/25 In Process Every Shift 15:53 Oxygen By Nasal RT 06/13/25 Transmitted Cannula 15:53 Problem List: (1) Acute respiratory failure (2) Acute chest pain (3) Pulmonary vascular congestion (4) UTI (urinary tract infection) (5) Pneumonia, unspecified organism (6) Generalized weakness (7) Leukocytosis, unspecified Date of Service: Jun 13, 2025 Billing Provider: MERCEDES MILLER DNP Common Visit Codes: [id number] INP/OBS CARE (HIGH) MERCEDES MLILER DNP Jun 13, 2025 16:08
[2025-06-13] MEDS: SODIUM CHLORIDE 0.9% 1,000 ML IV SCH (16:17)
[2025-06-13] MEDS: SODIUM CHLORIDE 0.9% 1,000 ML IV ONE (16:17)
[2025-06-13 16:23] VITALS: BP 149/70; PULSE 97; RESP 14; O2SAT 98
[2025-06-13] MEDS: ACCU-CHEK COMFORT CURVE STRIP VI SCH (16:24)
[2025-06-13] MEDS: InsuLIN REG 1unit/0.01ml Soln (100units/ml) SC SCH ×2 (16:24→22:23)
[2025-06-13 16:26] VITALS: O2SAT 98
[2025-06-13] MEDS: TAMSULOSIN HYDROCHLORIDE 0.4 MG CAP PO SCH (17:30)
[2025-06-13 18:56] VITALS: O2SAT 98
[2025-06-13 19:30] VITALS: O2SAT 95
[2025-06-13 21:46] LABS: COVID19 ANTIGEN SOFIA FIA NEGATIVE (NEGATIVE)
[2025-06-13] MEDS: METOPROLOL TARTRATE 50 MG TAB PO SCH (22:22)
[2025-06-14] VITALS (8 sets, daily range): BP systolic 102–156; BP diastolic 58–86; PULSE 51–84; RESP 17–20; TEMP 96.4–99.7; O2SAT 93–98
[2025-06-14] MEDS: IPRATROPIUM BROM 0.5 MG/2.5ML INH SOL NEB ONE (01:53)
[2025-06-14] MEDS: ACETYLCYSTEINE 20%(200MG/ML) SOL 4ML NEB ONE (01:55)
[2025-06-14 04:03] LABS: Nucleated Red Blood Cells % 0.0 %
[2025-06-14 04:05] LABS: Hematocrit 31.6 % (41.0-53.0); Hemoglobin 10.2 g/dL (13.5-17.5); Mean Corpuscular Hemoglobin 26.6 pg (28.0-32.0); Mean Corpuscular Volume 82.5 fL (80.0-100.0)
[2025-06-14] MEDS: HYDROcodone-ACET 5/325MG TAB PO PRN (04:40)
[2025-06-14 04:41] LABS: Alanine Aminotransferase 11 U/L (7-40); Albumin 4.3 g/dL (3.2-4.8); Alkaline Phosphatase 54 U/L (46-116); Anion Gap 9 (5-15); BUN/Creatinine Ratio 11.0 (10.0-20.0); Blood Urea Nitrogen 16 mg/dL (9-23); Calcium 9.1 mg/dL (8.7-10.4); Carbon Dioxide 25 mmol/L (20-31); Chloride 104 mmol/L (98-107); Potassium 3.7 mmol/L (3.5-5.1); Sodium 138 mmol/L (136-145); Total Protein 6.3 g/dL (5.7-8.2)
[2025-06-14 04:42] LABS: Bilirubin, Total 0.4 mg/dL (0.2-1.0)
[2025-06-14 04:48] LABS: Glucose 110 mg/dL (74-106)
[2025-06-14] MEDS: LEVOTHYROXINE SODIUM 50 MCG TAB PO SCH (06:09)
[2025-06-14] MEDS: cefTRIAXone 1GM/50ML D5W 50 ML IV SCH (09:05)
[2025-06-14] MEDS: AZITHROMYCIN 500MG/ 250ML 250 ML IV SCH (10:08)
[2025-06-14] MEDS: DOCUSATE SOD 100 MG CAP PO PRN (17:36)
--- NOTE | 2025-06-14 18:23 | DVHPN2 ---
Subjective Seen in bed and feeling well Reviewed: H&P, Labs Changes from previous H/P or p: No Changes Eyes: No Pain, No Vision change, No Conjunctivae inflammation, No Eyelid inflammation, No Other, No Redness ENT: No Ear pain, No Ear discharge, No Nose pain, No Nose discharge, No Nose congestion, No Mouth pain, No Mouth swelling, No Throat pain, No Throat swelling, No Other Cardiovascular: No Chest Pain, No Palpitations, No Orthopnea, No Paroxysmal Noc. Dyspnea, No Edema, No Lt Headedness, No Other Respiratory: Cough (Orthopnea); No Dry; Shortness of breath; No SOB with excertion, No Wheezing, No Hemoptysis, No Pleuritic Pain, No Sputum; Other (SOB at rest) Gastrointestinal: No Nausea, No Vomiting, No Abdominal Pain, No Diarrhea, No Constipation, No Melena, No Hematochezia, No Other Genitourinary: No Dysuria, No Frequency, No Incontinence, No Hematuria, No Retention, No Other Musculoskeletal: No other, No neck pain, No shoulder pain, No arm pain; back pain; No hand pain, No leg pain, No foot pain Skin: No Rash, No Lesions, No Jaundice, No Bruising, No Other Objective Vitals Vital Signs Date Time Temp Pulse Resp B/P (MAP) Pulse Ox O2 Delivery O2 Flow Rate FiO2 06/14/25 17:00 97.8 54 18 105/60 (75) 93 97.8 06/14/25 12:05 Nasal Cannula 3.0 06/14/25 12:05 32 Intake/Output Intake and Output 06/14/25 07:00 Intake Total 540 ml Output Total 670 ml Balance -130 ml Intake Oral 0 ml IV Total 540 ml Output Urine Total 670 ml General Appearance: Alert, Oriented X3 HEENT: Atraumatic, PERRLA Lungs: Clear to auscultation Cardiovascular: Regular rate, Normal S1, Normal S2 Abdomen: Normal bowel sounds Medications Current Medications Medications Dose Ordered Sig/Al Route Start Time Stop Time Status Last Admin Dose Admin Acetaminophen 650 mg Q6HP PRN PO 06/13/25 16:00 Nitroglycerin 0.4 mg Q5MINP PRN SL 06/13/25 16:00 Morphine Sulfate 2 mg Q30M PRN IV 06/13/25 16:00 Aspirin 81 mg DAILY PO 06/14/25 10:00 06/14/25 09:04 81 MG Amlodipine Besylate 5 mg DAILY PO 06/14/25 10:00 06/14/25 09:05 5 MG Ceftriaxone Sodium 50 ml @ 100 mls/hr DAILY@09 IV 06/14/25 09:00 06/14/25 09:05 100 MLS/HR Azithromycin 250 ml @ 125 mls/hr DAILY IV 06/14/25 10:00 06/14/25 10:08 125 MLS/HR Tamsulosin HCl 0.4 mg QPM PO 06/13/25 18:00 06/14/25 17:36 0.4 MG Metoprolol Tartrate 50 mg BID PO 06/13/25 22:00 06/14/25 09:05 50 MG Clonidine HCl 0.1 mg Q4HP PRN PO 06/13/25 16:00 06/14/25 04:40 0.1 MG Albuterol 2.5 mg Q4HPRN PRN NEB 06/13/25 16:00 Diagnostic Test (Pha) 1 strip ACHS 06/13/25 17:00 06/14/25 11:49 1 STRIP Insulin Human Regular HS SC 06/13/25 22:00 06/13/25 22:23 4 UNITS Insulin Human Regular AC SC 06/13/25 17:00 06/14/25 11:48 2 UNITS Dextrose 50 ml UD PRN IV 06/13/25 16:00 Sodium Chloride 1,000 ml @ 60 mls/hr [id number] IV 06/13/25 16:00 06/14/25 09:06 60 MLS/HR Acetaminophen/ Hydrocodone Bitart 1 tab Q4HP PRN PO 06/13/25 16:00 06/14/25 14:41 1 TAB Ondansetron HCl 4 mg Q4HP PRN IV 06/13/25 16:00 Docusate Sodium 100 mg BIDPRN PRN PO 06/13/25 16:00 06/14/25 17:36 100 MG Levothyroxine Sodium 50 mcg QAM@0600 PO 06/14/25 06:00 06/14/25 06:09 50 MCG Laboratory Results Laboratory Tests 06/14/25 03:41 Chemistry Test 06/14/25 03:41 Albumin 4.3 g/dL (3.2-4.8) Calcium Level 9.1 mg/dL (8.7-10.4) Total Protein 6.3 g/dL (5.7-8.2) LFT Test 06/14/25 03:41 Alanine Aminotransferase (ALT) 11 U/L (7-40) Alkaline Phosphatase 54 U/L (46-116) Aspartate Amino Transferase (AST) 22 U/L (13-40) Total Bilirubin 0.4 mg/dL (0.2-1.0) Urinalysis Test 06/13/25 12:52 Urine Color Light-yellow (Yellow) Urine Clarity Turbid (Clear) H Urine pH 6.5 (5.0-9.0) Urine Specific [place] 1.013 (1.001-1.035) Urine Protein Trace (Negative) H Urine Ketones Negative (Negative) Urine Blood Negative /uL (Negative) Urine Nitrite Negative (Negative) Urine Bilirubin Negative (Negative) Urine Urobilinogen Normal mg/dL (Negative) Urine Leukocyte Esterase 3+ /uL (Negative) Urine RBC 5 /hpf (0 - 3) Urine Microscopic WBC 46 /HPF (0-3) H Urine Squamous Epithelial Cells None seen /hpf (<5) Urine Bacteria Few /hpf (None Seen) H Urine Glucose Normal mg/dL (Normal) Microbiology Microbiology Date/Time Source Procedure Growth Status 06/13/25 21:00 Nose MRSA Screen - Final Complete 06/13/25 15:00 Blood Blood Culture - Preliminary NO GROWTH AFTER 24 HOURS OF INCUBATION. Resulted 06/13/25 12:52 Urine - [place] Urine Culture - Preliminary Resulted Assessment/Plan Assessment/Plan Acute respiratory failure Acute chest pain Pneumonia, unspecified organism Pulmonary vascular congestion UTI (urinary tract infection) Generalized weakness Leukocytosis, unspecified IV lasix started Continue IV abx Pending urine cx Plan discussed with: Patient Date of Service: Jun 14, 2025 Billing Provider: CLESA JOHNSON MD Common Visit Codes: [id number] INP/OBS CARE(HIGH) CELSA JOHNSON MD Jun 14, 2025 18:23
[2025-06-14] MEDS: FUROSEMIDE 20 MG/2 ML VIAL IV SCH (18:54)
[2025-06-15 01:00] VITALS: BP 108/69; PULSE 56; RESP 16; TEMP 96.3; O2SAT 97
[2025-06-15 05:00] VITALS: BP 134/86; PULSE 66; RESP 16; TEMP 96.7; O2SAT 95
[2025-06-15 08:00] VITALS: PULSE 66; RESP 20
[2025-06-15 09:00] VITALS: BP 110/74; PULSE 68; RESP 19; TEMP 97.4; O2SAT 98
[2025-06-15 12:55] VITALS: BP 110/74; PULSE 61; RESP 18; TEMP 36.3; O2SAT 96
[2025-06-15 13:00] VITALS: BP 142/74; PULSE 72; RESP 16; TEMP 97.8; O2SAT 96
== END 2025-06-15 15:18 | disposition home or self-care (01) | DRG 177 ==
LOC: EDBD 11:07 → ER 11:07 → OVERFLOW 15:53 → TELE-EAST 06-14 04:05
PROVIDERS: ADMIT Hospitalist; ATTEND Hospitalist
DX: J15.69 Pneumonia due to other Gram-negative bacteria (principal); J96.00 Acute respiratory failure, unspecified whether with hypoxia or hypercapnia; N17.0 Acute kidney failure with tubular necrosis; R65.11 Systemic inflammatory response syndrome (SIRS) of non-infectious origin with acute organ dysfunction; N39.0 Urinary tract infection, site not specified; J44.0 Chronic obstructive pulmonary disease with (acute) lower respiratory infection; F32.A Depression, unspecified; Z20.822 Contact with and (suspected) exposure to COVID-19; F41.9 Anxiety disorder, unspecified; K21.9 Gastro-esophageal reflux disease without esophagitis; E78.5 Hyperlipidemia, unspecified; E11.9 Type 2 diabetes mellitus without complications; I10 Essential (primary) hypertension; Z88.8 Allergy status to other drugs, medicaments and biological substances; Z79.82 Long term (current) use of aspirin; Z88.1 Allergy status to other antibiotic agents; Z79.899 Other long term (current) drug therapy
CPT/HCPCS: 36415; 70450; 71045; 80048; 80053; 80307; 81001; 82962; 83605; 84484; 85025; 87040; 87081; 87086; 87088; 87186; 87205; 87426; 87804; 93005; 94640; 96365; G0378; J1815